=== PATIENT | male | born 1955 | race Hispanic/Latino ===

== ENCOUNTER 2019-01-26 10:08 | Emergency (ER) | payer OTHER ==
--- OUTSIDE RECORDS SUMMARY | 2019-01-26 10:16 | XMS REPORT | Clinical Summary ---
:1955 Author Organization [facility] Address [address] [place] [address] Care Team Providers Name Role Phone Teresa Lieberman MD Primary Care Provider Allergies No Known Allergies Medications Medication Sig Dispensed Refills Start Date End Date Status calcium acetate Take 1,334 mg by 0 Active (PHOSLO) 667 mg mouth 3 (three) capsule times a day with meals. labetalol Take 600 mg by 0 Active (NORMODYNE) 200 mouth 2 (two) MG tablet times a day. lovastatin Take 20 mg by 0 Active (MEVACOR) 20 MG mouth nightly. tablet brimonidine-timol Administer 1 0 Active ol (COMBIGAN) drop to both 0.2-0.5 % eyes 2 (two) ophthalmic times a day. solution aspirin (ECOTRIN) Take 81 mg by 0 Active 81 MG enteric mouth every coated tablet morning. losartan (COZAAR) Take 100 mg by 0 Active 100 MG tablet mouth daily. latanoprost Administer 1 0 Active (XALATAN) 0.005 % drop to both ophthalmic eyes nightly. solution vit B comp Take 1 tablet by 0 Active C/folic acid/vit mouth daily. D3 (DIALYVITE 800 PLUS D ORAL) clopidogrel Take 75 mg by 0 Active (PLAVIX) 75 mg mouth daily. tablet NIFEdipine XL Take 60 mg by 0 Active (PROCARDIA XL) 60 mouth daily. MG 24 hr tablet calcium carbonate Chew 2 tablets 0 Active (TUMS) 200 mg every 2 (two) calcium (500 mg) hours as needed chewable tablet for heartburn. insulin GLARGINE Inject 10 Units 0 Active (LANTUS) 100 under the skin unit/mL injection daily before (vial) breakfast. famotidine Take 40 mg by 0 Active (PEPCID) 40 MG mouth nightly. tablet minoxidil Take 2.5 mg by 0 Active (LONITEN) 2.5 MG mouth daily. tablet nystatin Apply topically 160 g 2 01/15/2019 02/14/2019 Active (MYCOSTATIN) 2 (two) times a 100,000 unit/gram day for 30 days. cream valsartan Take 320 mg by 0 01/10/2019 Discontinued (DIOVAN) 320 MG mouth every tablet evening. acetaminophen-cod Take 1 tablet by 0 01/10/2019 Discontinued eine (TYLENOL #3) mouth every 6 300-30 mg per (six) hours as tablet needed for moderate pain. insulin NPH Inject 15 Units 0 01/10/2019 Discontinued (HumuLIN-N) 100 under the skin unit/mL injection every morning. insulin NPH Inject 10 Units 0 01/10/2019 Discontinued (HumuLIN-N) 100 under the skin unit/mL injection every evening. doxycycline Take 1 tablet 20 tablet 0 01/15/2019 01/25/2019 (VIBRA-TABS) 100 (100 mg total) MG tablet by mouth 2 (two) times a day for 10 days. Active Problems Problem Noted Date Pseudoaneurysm of right femoral artery 01/25/2019 Overview: Added automatically from request for surgery [id number] Cellulitis of right lower extremity 01/10/2019 Osteomyelitis of foot 03/30/2016 Peripheral vascular disease 01/14/2016 Essential hypertension 01/14/2016 Glaucoma 01/14/2016 ESRD (end stage renal disease) 01/14/2016 Gangrene of toe 01/14/2016 Encounters Date Type Specialty Care Team Description 01/25/2019 Office Visit Cardiovascular Zeny Ndiaye MD Pseudoaneurysm of right femoral artery (HCC) (Primary Dx) 01/25/2019 Prep for Surgery Cardiovascular Katherin Mendieta RN right femoral artery (HCC) (Primary Dx) 01/25/2019 Prep for Surgery Cardiovascular Kaitlynn Mendieta RN 01/10/2019 - Hospital Orthopedic Surgery Anand Palmer Cellulitis of right lower extremity (Primary Dx); 01/15/2019 Encounter MD Miguel Pseudoaneurysm of femoral artery ([facility]); Dionicio Cardenas ESRD (end stage renal disease) on dialysis ([facility]); MD Alysia Right leg swelling; Lux, Hypertensive urgency; Alli Rivas Sr., Stage 4 chronic kidney disease ([facility]); Peripheral vascular disease ([facility]); Essential hypertension; ESRD (end stage renal disease) ([facility]) 01/10/2019 Telephone Cardiovascular Kaitlynn Mendieta RN 12/28/2018 Orders Only Cardiovascular Arreguin, Pseudoaneurysm ([facility]) MEGHA Wu (Primary Dx) after 01/25/2018 Family History Medical History Relation Name Comments Diabetes Father Diabetes Mother Relation Name Status Comments Father Mother Social History Tobacco Use Types Packs/Day Years Used Date Former Smoker Smokeless Tobacco: Never Used Alcohol Use Drinks/Week oz/Week Comments No Sex Assigned at Date Recorded Not on file Job Start Date Occupation Industry Not on file Not on file Not on file Travel History Travel Start Travel End No recent travel history available. Last Filed Vital Signs Vital Sign Reading Time Taken Blood Pressure 175/67 01/25/2019 9:06 AM CDT Pulse 57 01/25/2019 9:06 AM CDT Temperature 37.4 C (99.4 F) 01/25/2019 9:06 AM CDT Respiratory Rate 19 01/15/2019 11:55 AM CDT Oxygen Saturation 99% 01/15/2019 11:55 AM CDT Inhaled Oxygen Concentration - - Weight 82.1 kg (181 lb) 01/25/2019 9:06 AM CDT Height 172.7 cm (5' 8") 01/25/2019 9:06 AM CDT Body Mass Index 27.52 01/25/2019 9:06 AM CDT Plan of Treatment Date Type Specialty Care Team Description 03/07/2019 [facility] Cardiothoracic Surgery Zeny Ndiaye MD Encounter [address] [facility] [address] [place] [address] [phone] 03/07/2019 Surgery Cardiothoracic Surgery Zeny Ndiaye MD OPEN REPAIR OF RIGHT [address] [facility] [address] [place] [phone] Health Maintenance Due Date Last Done Comments COLONOSCOPY SCREENING 2007 SHINGLES VACCINES (#1) 2007 INFLUENZA VACCINE 03/08/2019 Procedures Procedure Name Priority Date/Time Associated Diagnosis Comments POC GLUCOSE Routine 01/15/2019 8:31 Results for this AM CDT procedure are in the results section. ESTIMATED GFR Routine 01/15/2019 7:10 Results for this AM CDT procedure are in the results section. BASIC METABOLIC PANEL Routine 01/15/2019 7:10 Results for this AM CDT procedure are in the results section. ESTIMATED GFR Routine 01/15/2019 4:00 Results for this AM CDT procedure are in the results section. BASIC METABOLIC PANEL Routine 01/15/2019 4:00 Results for this AM CDT procedure are in the results section. VANCOMYCIN LEVEL, Routine 01/15/2019 4:00 Results for this RANDOM AM CDT procedure are in the results section. HEMODIALYSIS Routine 01/15/2019 12:05 AM CDT POC GLUCOSE Routine 01/14/2019 10:45 Results for this PM CDT procedure are in the results section. POC GLUCOSE Routine 01/14/2019 5:46 Results for this PM CDT procedure are in the results section. POC GLUCOSE Routine 01/14/2019 1:06 Results for this PM CDT procedure are in the results section. POC GLUCOSE Routine 01/14/2019 7:54 Results for this AM CDT procedure are in the results section. POC GLUCOSE Routine 01/13/2019 9:25 Results for this PM CDT procedure are in the results section. POC GLUCOSE Routine 01/13/2019 5:08 Results for this PM CDT procedure are in the results section. CLOSTRIDIUM DIFFICILE Routine 01/13/2019 1:16 Results for this TOXIN PM CDT procedure are in the results section. POC GLUCOSE Routine 01/13/2019 11:50 Results for this AM CDT procedure are in the results section. POC GLUCOSE Routine 01/13/2019 7:33 Results for this AM CDT procedure are in the results section. ESTIMATED GFR Routine 01/13/2019 5:09 Results for this AM CDT procedure are in the results section. BASIC METABOLIC PANEL Routine 01/13/2019 5:09 Results for this AM CDT procedure are in the results section. HC COMPLETE BLD COUNT Routine 01/13/2019 5:09 Results for this W/AUTO DIFF AM CDT procedure are in the results section. POC GLUCOSE Routine 01/12/2019 9:41 Results for this PM CDT procedure are in the results section. POC GLUCOSE Routine 01/12/2019 5:27 Results for this PM CDT procedure are in the results section. POC GLUCOSE Routine 01/12/2019 11:51 Results for this AM CDT procedure are in the results section. HEMODIALYSIS Routine 01/12/2019 10:26 AM CDT POC GLUCOSE Routine 01/12/2019 8:44 Results for this AM CDT procedure are in the results section. HEPATITIS B SURFACE STAT 01/12/2019 7:07 Results for this ANTIGEN AM CDT procedure are in the results section. HC COMPLETE BLD COUNT Routine 01/12/2019 4:30 Results for this W/AUTO DIFF AM CDT procedure are in the results section. ESTIMATED GFR Routine 01/12/2019 4:00 Results for this AM CDT procedure are in the results section. BASIC METABOLIC PANEL Routine 01/12/2019 4:00 Results for this AM CDT procedure are in the results section. CT ANGIOGRAM ABDOMEN Routine 01/11/2019 8:00 Results for this PELVIS W AND OR WO PM CDT procedure are in CONTRAST the results section. POC GLUCOSE Routine 01/11/2019 5:57 Results for this PM CDT procedure are in the results section. POC GLUCOSE Routine 01/11/2019 12:30 Results for this PM CDT procedure are in the results section. POC GLUCOSE Routine 01/11/2019 7:41 Results for this AM CDT procedure are in the results section. LIPID PANEL Routine 01/11/2019 4:00 Results for this AM CDT procedure are in the results section. LACTIC ACID LEVEL Routine 01/11/2019 4:00 Results for this AM CDT procedure are in the results section. HEMOGLOBIN A1C Routine 01/11/2019 4:00 Results for this AM CDT procedure are in the results section. ESTIMATED GFR Routine 01/11/2019 4:00 Results for this AM CDT procedure are in the results section. BASIC METABOLIC PANEL Routine 01/11/2019 4:00 Results for this AM CDT procedure are in the results section. HC COMPLETE BLD COUNT Routine 01/11/2019 4:00 Results for this W/AUTO DIFF AM CDT procedure are in the results section. BLOOD CULTURE, AEROBIC Routine 01/10/2019 7:55 Results for this & ANAEROBIC PM CDT procedure are in the results section. TYPE AND SCREEN Routine 01/10/2019 7:30 Results for this PM CDT procedure are in the results section. LACTIC ACID LEVEL, Timed 01/10/2019 7:30 Results for this SEPSIS - NOW AND PM CDT procedure are in REPEAT 2X EVERY 3 the results HOURS section. BLOOD CULTURE, AEROBIC Routine 01/10/2019 7:30 Results for this & ANAEROBIC PM CDT procedure are in the results section. US DUPLEX VENOUS LOWER STAT 01/10/2019 6:05 Results for this EXTREMITY RIGHT PM CDT procedure are in the results section. ESTIMATED GFR STAT 01/10/2019 4:34 Results for this PM CDT procedure are in the results section. COMPREHENSIVE STAT 01/10/2019 4:34 Results for this METABOLIC PANEL PM CDT procedure are in the results section. PARTIAL THROMBOPLASTIN STAT 01/10/2019 4:34 Results for this TIME (PTT) PM CDT procedure are in the results section. PROTHROMBIN TIME WITH STAT 01/10/2019 4:34 Results for this INR PM CDT procedure are in the results section. HC COMPLETE BLD COUNT STAT 01/10/2019 4:34 Results for this W/AUTO DIFF PM CDT procedure are in the results section. US DUPLEX ARTERIAL Routine 01/09/2019 9:02 Pseudoaneurysm (HCC) Results for this LOWER EXTREMITY RIGHT AM CDT procedure are in the results section. after 01/25/2018 Results POC glucose (01/15/2019 8:31 AM CDT)Only the most recent of16 resultswithin the time period is included. Pathologist [facility] POC glucose 119 (H) 65 - 99 mg/dL [facility] Comment: HOSPITAL Meter ID: [id number] Asphalt Coater: Cynthia Mas Specimen Performing Organization Address City/State/Zipcode Phone Number [facility] DEPARTMENT OF PATHOLOGY AND [address] [place] [address] GEN[address] [address] Estimated GFR (01/15/2019 7:10 AM CDT)Only the most recent of6 resultswithin the time period is included. Pathologist [facility] Estimated GFR 6 (A) mL/min/1.73 [facility] Comment: HOSPITAL CatergoryUnitsInterpretation G1 >=90 Normal or high G2 60-89Mildly decreased [id number] to moderately decreased [id number] to severely decreased G4 15-29Severely decreased G5 <15Kidney failure The eGFR was calculated using the Chronic Kidney Disease Epidemiology Collaboration (CKD-EPI) equation. Interpretation is based on recommendations of the National Kidney Foundation-Kidney Disease Outcomes Quality Initiative (NKF-KDOQI) published in 2014. Specimen Plasma specimen Performing Organization Address City/[facility] Phone Number [facility] DEPARTMENT OF PATHOLOGY AND [address] [place] [id number] [place] [phone] Basic metabolic panel (01/15/2019 7:10 AM CDT)Only the most recent of5 resultswithin the time period is included. Sodium 135 135 - 148 mEq/L [facility] Potassium 5.0 3.5 - 5.0 mEq/L [facility] Chloride 91 (L) 98 - 112 mEq/L [facility] CO2 20 (L) 24 - 31 mEq/L [facility] Anion gap 24@ANIO (H) 7 - 15 mEq/L [facility] BUN 71 (H) 8 - 23 mg/dL [facility] Creatinine 8.01 (H) 0.70 - 1.20 mg/dL [facility] Glucose 129 (H) 65 - 99 mg/dL [facility] Calcium 9.8 8.8 - 10.2 mg/dL [facility] Specimen Plasma specimen Performing Organization Address [facility] Phone Number [facility] DEPARTMENT OF PATHOLOGY AND [address] [place] [phone] Vancomycin level, random (01/15/2019 4:00 AM CDT) Vancomycin, random 19.5 ug/mL [facility] Specimen Serum Performing Organization Address [facility] Phone Number [facility] DEPARTMENT OF PATHOLOGY AND [address] [place] [phone] [address] C difficile toxin (01/13/2019 1:16 PM CDT) Clostridium No Clostridium difficle toxin present [facility] difficile toxin Comment: HOSPITAL Specimen Information Specimen Source: Stool Specimen Site: Nonpreserved Specimen Stool - Nonpreserved Performing Organization Address [facility]/Zipcode Phone Number [facility] DEPARTMENT OF PATHOLOGY AND [address] [place] [address] [place] [address] CBC with platelet and differential (01/13/2019 5:09 AM CDT)Only the most recent of4 resultswithin the time period is included. Pathologist [facility] WBC 8.28 4.50 - 11.00 [facility] k/uL HOSPITAL RBC 2.92 (L) 4.40 - 6.00 [facility] m/uL HOSPITAL HGB 10.2 (L) 14.0 - 18.0 [facility] g/dL HOSPITAL HCT 31.8 (L) 41.0 - 51.0 % [facility] MCV 108.9 (H) 82.0 - 100.0 [facility] MCH 34.9 (H) 27.0 - 34.0 pg [facility] MCHC 32.1 31.0 - 37.0 [facility] g/dL [facility] RDW - SD 62.2 (H) 37.0 - 55.0 fL [facility] MPV 10.7 8.8 - 13.2 fL [facility] Platelet count 125 (L) 150 - 400 k/uL [facility] Nucleated RBC 0.00 /100 WBC [facility] Neutrophils 68.2 39.0 - 69.0 % [facility] Lymphocytes 14.5 (L) 25.0 - 45.0 % [facility] Monocytes 14.4 (H) 0.0 - 10.0 % [facility] Eosinophils 2.3 0.0 - 5.0 % [facility] Basophils 0.5 0.0 - 1.0 % [facility] Immature granulocytes 0.1Comment: 0.0 - 1.0 % [facility] "Immature [facility] granulocytes" (promyelocytes , myelocytes, metamyelocytes ) Specimen Blood Performing Organization Address City/State/Zipcode Phone Number [facility] DEPARTMENT OF PATHOLOGY AND [address] [place] [phone] [address] Hepatitis B surface antigen (01/12/2019 7:07 AM CDT) Pathologist [facility] Hepatitis B surface Non-reactive Non-reactive [facility] Specimen Blood Performing Organization Address City/State/Zipcode Phone Number [facility] DEPARTMENT OF PATHOLOGY AND [address] [place], [place] [phone] [place] [address] [place] [address] CTA Abdomen Pelvis W And Or Wo Contrast (01/11/2019 8:00 PM CDT) Specimen Narrative Performed At EXAMINATION:CT ANGIOGRAM ABDOMEN PELVIS W AND OR WO CONTRAST RADIANT CLINICAL HISTORY:visualize right femoral PSA TECHNIQUE: Multiple CT angiographic images of the abdomen and pelvis were obtained during intravenous administration of contrast. Multiple computerized reformatted images as well as 3-D volume rendered images were also obtained.CT imaging was performed with iterative reconstruction technique and/or automated exposure control to reduce radiation dose. Precontrast images of the abdomen were also obtained. COMPARISON:None. FINDINGS: Abdomen: There is a moderate to marked cardiomegaly. Lung bases are unremarkable. Tiny hyperdense focus is seen in the posterior right hepatic lobe measuring 3 mm. This could be hemorrhagic cyst or other. Contrast-enhanced exam could better assess. Gallbladder, pancreas, spleen, and adrenals are normal in appearance. The kidneys are small in size. Vascular calcifications are seen. There is mild ascites. Appendix is not definitely seen. Tiny left para-aortic lymph nodes are seen. Pelvis: Small amount of pelvic free fluid is seen. No enlarged pelvic lymph node or mass is seen. Bilateral inguinal hernias containing fat only are seen. CTA: Abdominal aorta is of normal caliber but markedly atherosclerotic. Marked atherosclerosis is seen at the origin of the celiac artery with moderate dilatation. Moderate atherosclerosis is seen at the origin of the SMA with mild dilatation. Mild left renal artery origin atherosclerosis is seen. Right and left renal arteries are patent. Marked ARIELLE laparoscopic calcification is seen but this vessel appears patent. Atherosclerosis is present throughout the common, internal, and external iliac arteries without occlusion. There is a right superficial femoral artery pseudoaneurysm which measures 3.9 x 3.5 cm. Enhancing lumen within this pseudoaneurysm is 2.5 x 2.0 cm. The left is mural thrombus with some scattered calcification and/or hemorrhage. IMPRESSION: Right femoral artery pseudoaneurysm as described. Cardiomegaly. Nonspecific hyperdense right hepatic lobe lesion.Tiny left para-aortic lymph nodes. Extensive atherosclerosis. [facility]-[id number] Procedure Note Interface, Radiology Results Incoming - 01/11/2019 11:45 PM CDT EXAMINATION: CT ANGIOGRAM ABDOMEN PELVIS W AND OR WO CONTRAST CLINICAL HISTORY: visualize right femoral PSA TECHNIQUE: Multiple CT angiographic images of the abdomen and pelvis were obtained during intravenous administration of contrast. Multiple computerized reformatted images as well as 3-D volume rendered images were also obtained.CT imaging was performed with iterative reconstruction technique and/or automated exposure control to reduce radiation dose. Precontrast images of the abdomen were also obtained. COMPARISON: None. FINDINGS: Abdomen: There is a moderate to marked cardiomegaly. Lung bases are unremarkable. Tiny hyperdense focus is seen in the posterior right hepatic lobe measuring 3 mm. This could be hemorrhagic cyst or other. Contrast-enhanced exam could better assess. Gallbladder, pancreas, spleen, and adrenals are normal in appearance. The kidneys are small in size. Vascular calcifications are seen. There is mild ascites. Appendix is not definitely seen. Tiny left para-aortic lymph nodes are seen. Pelvis: Small amount of pelvic free fluid is seen. No enlarged pelvic lymph node or mass is seen. Bilateral inguinal hernias containing fat only are seen. CTA: Abdominal aorta is of normal caliber but markedly atherosclerotic. Marked atherosclerosis is seen at the origin of the celiac artery with moderate dilatation. Moderate atherosclerosis is seen at the origin of the SMA with mild dilatation. Mild left renal artery origin atherosclerosis is seen. Right and left renal arteries are patent. Marked ARIELLE laparoscopic calcification is seen but this vessel appears patent. Atherosclerosis is present throughout the common, internal, and external iliac arteries without occlusion. There is a right superficial femoral artery pseudoaneurysm which measures 3.9 x 3.5 cm. Enhancing lumen within this pseudoaneurysm is 2.5 x 2.0 cm. The left is mural thrombus with some scattered calcification and/or hemorrhage. IMPRESSION: Right femoral artery pseudoaneurysm as described. Cardiomegaly. Nonspecific hyperdense right hepatic lobe lesion.Tiny left para- aortic lymph nodes. Extensive atherosclerosis. [facility]-[id number] Performing Organization Address City/[facility]/Zipcode Phone Number [facility] [address] [place] [address] Lactic acid level (01/11/2019 4:00 AM CDT) Lactic acid 1.0 0.5 - 2.2 mmol/L [facility] Specimen Plasma specimen Performing Organization Address City/[facility]/Zipcode Phone Number [facility] DEPARTMENT OF PATHOLOGY AND [address] [place] [address] [address] [address] Hemoglobin A1c (01/11/2019 4:00 AM CDT) Hemoglobin A1C 5.4 4.0 - 5.6 % [facility] Comment: HOSPITAL HbA1c cutoffs for diagnosing diabetes: 4.0% - 5.6%=normal 5.7% - 6.4%=increased risk for diabetes (prediabetes) >=6.5%=diabetes Goals for glycemic control (ADA 2016) < 7.0%Target for non adults with diabetes. More or less stringent targets may be appropriate for individual patients. <7.5% Target for Children and adolescents with type 1 diabetes. Specimen Performing Organization Address City/State/Zipcode Phone Number [facility] DEPARTMENT OF PATHOLOGY AND [address] [place] [address] GENOMIC MEDICINE [facility] [address] [place] [address] Lipid panel (01/11/2019 4:00 AM CDT) Cholesterol 111 <200 mg/dL [facility] Triglycerides 85 <150 mg/dL [facility] HDL cholesterol 47 >40 mg/dL [facility] LDL cholesterol 48Comment: Result <100 mg/dL TRIPOLI obtained by direct [facility] LDL measurement [facility] Comment: [facility] Total Cholesterol (mg/dL) [facility] <200 Desirable 251-533Zyxoppcrcm-[id number] >=240High Triglycerides (mg/dL) <150 Normal [id number] 200-499High >=500Very high HDL Cholesterol (mg/dL) <40Low (male) <40Low (female) LDL Cholesterol (mg/dL) <100 Optimal 100-129Near or above optimal [id number]-[id number] 160-189High >=190Very high Risk Catergories that modify LDL goals. Risk CatergoriesLDL goal (mg/dL) CHD and CHD risk equivalent<100 (10-year risk >20%) Multiple (2+) risk factors <130 (10-year risk=<20%) 0-1 risk factors <160 (<10-year risk) Defining levels of lipids in metabolic syndrome Triglycerides>=150 mg/dL HDL Cholesterol Men<40 mg/dL Women<40 mg/dL Non-HDL cholesterol is a second target for therapy in persons with high triglycerides (>=200 mg/dL) Specimen Plasma specimen Performing Organization Address [facility] [place] Phone Number [facility] DEPARTMENT OF PATHOLOGY AND [address] [place] [address] Blood culture, aerobic & anaerobic (01/10/2019 7:55 PM CDT)Only the most recent of2 resultswithin the time period is included. Blood culture No growth after 5 days of incubation. [facility] isolate Comment: HOSPITAL Specimen Information Specimen Source: Blood Specimen Site: Unspecified Specimen Blood Performing Organization Address [facility] [place] Phone Number [facility] DEPARTMENT OF PATHOLOGY AND [address] [place] [address] Lactic acid level, SEPSIS - Now and repeat 2x every 3 hours (01/10/2019 7:30 PM CDT) Lactic acid 1.0 0.5 - 2.2 mmol/L [facility] Specimen Blood Performing Organization Address [facility] [place] Phone Number [facility] DEPARTMENT OF PATHOLOGY AND [address] [place] [address] Type and screen (01/10/2019 7:30 PM CDT) ABO grouping O [facility] Rh type POS [facility] Antibody screen (gel) NEG [facility] Specimen Blood Performing Organization Address [facility] [place] [facility] DEPARTMENT OF PATHOLOGY AND [address] [place] [address] Us duplex venous lower extremity (01/10/2019 6:05 PM CDT) Specimen Narrative Performed At [facility] Lower Extremity Venous Report [address] [place] [address] Pat.Name:CHRIS ANDINO.ID:[id number] .Date: 01/10/2019Refer.MD:PHYSICIAN, EMERGENCY, Exam Time: 5:22:00 PMStudy Type:LE Venous Height:68inWeight: 187lb BSA: 1.99 m2 DOBAge:1955,63Y Sex: MALESonogrphr: Pat Roy, RVT Pat. Stat.:Inpatient Room:EDT TapeVol: MAGDY, CPT - 4: 11177 Echo Event ID:[id number] Order ID:[id number] Reason for Study:Right leg swelling and pain. History of DM, HTN, end-stage renal disease, peripheral vascular disease. Procedures:Colorflow, Grayscale/2D, Pulsed wave Doppler Race:Other SUMMARY: * Normal Reflux Criteria:< 0.5 seconds * Abnormal Reflux Criteria:> or equal to 0.5 seconds DUPLEX SCAN OBSERVATIONS Deep VeinsSuperficial Veins RightLeft RightLeft GSV (prox) Normal CFV Pulsatile Pulsatile (above knee) Femoral PulsatileGSV (dist) Normal Profunda Pulsatile(below knee) Popliteal Pulsatile PT (prox) Normal SSV Normal PT (dist) Normal Peroneal Normal Gastrocs Normal RIGHT: There is normal compressibility with no evidence of echogenic material noted within the lumen of the visualized veins. Color flow and Doppler signals are pulsatile in the thigh veins. Incident finding: There is partially thrombosed pseudoaneurysm coming from proximal superficial femoral artery; measures approximately 5.33 x 2.5 cm in long with an active lumen that measures approximately 2.5 cm x 1.4 cm. LEFT: There is normal compressibility with no evidence of echogenic material noted within the lumen of the common femoral vein. Colorflow and Doppler signals are pulsatile in the common femoral vein. PRELIMINARY FINDINGS 1. No evidence of venous thrombosis in the visualized veins. 2. Color flow and Doppler signals are pulsatile in the right thigh veins and left common femoral vein. 3. 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 4. Preliminary result reported to Dr. Palmer @ 18:20. PHYSICIAN INTERPRETATION Venous examination of the right lower extremity and leftgroin demonstrated no evidence of venous thrombosis in the visualized veins. Volume overload. 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 Signed 01/11/2019 08:14 AM René Lindsey MD, RPVI Procedure Note Interface, Radiology Results In - 01/11/2019 8:15 AM CDT [facility] Lower Extremity Venous Report [address] [place] [address] Pat.Name: CHRIS ANDINO Pat.ID: [id number] St.Date: 01/10/2019 Refer.MD: PHYSICIAN, EMERGENCY, MD Exam Time: 5:22:00 PM Study Type:LE Venous Height: 68in Weight: 187lb BSA: 1.99 m2 Age: 9 1955,63Y Sex: MALE Sonogrphr: Pat Roy RVT Pat. Stat.:Inpatient Room: EDT Tape Vol: LN, CPT - 4: 58906 Echo Event ID:[id number] Order ID: [id number] Reason for Study:Right leg swelling and pain. History of DM, HTN, end-stage renal disease, peripheral vascular disease. Procedures:Colorflow, Grayscale/2D, Pulsed wave Doppler Race: Other SUMMARY: * Normal Reflux Criteria: < 0.5 seconds * Abnormal Reflux Criteria: > or equal to 0.5 seconds DUPLEX SCAN OBSERVATIONS Deep Veins Superficial Veins Right Left Right Left GSV (prox) Normal CFV Pulsatile Pulsatile (above knee) Femoral Pulsatile GSV (dist) Normal Profunda Pulsatile (below knee) Popliteal Pulsatile PT (prox) Normal SSV Normal PT (dist) Normal Peroneal Normal Gastrocs Normal RIGHT: There is normal compressibility with no evidence of echogenic material noted within the lumen of the visualized veins. Color flow and Doppler signals are pulsatile in the thigh veins. Incident finding: There is partially thrombosed pseudoaneurysm coming from proximal superficial femoral artery; measures approximately 5.33 x 2.5 cm in long with an active lumen that measures approximately 2.5 cm x 1.4 cm. LEFT: There is normal compressibility with no evidence of echogenic material noted within the lumen of the common femoral vein. Colorflow and Doppler signals are pulsatile in the common femoral vein. PRELIMINARY FINDINGS 1. No evidence of venous thrombosis in the visualized veins. 2. Color flow and Doppler signals are pulsatile in the right thigh veins and left common femoral vein. 3. 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 4. Preliminary result reported to Dr. Palmer @ 18:20. PHYSICIAN INTERPRETATION Venous examination of the right lower extremity and left groin demonstrated no evidence of venous thrombosis in the visualized veins. Volume overload. 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 Signed 01/11/2019 08:14 AM René Lindsey MD, RPVI Performing Organization Address [facility]/Zipcode Phone Number [facility] [address] [place] [address] Partial thromboplastin time, activated (01/10/2019 4:34 PM CDT) Pathologist [facility] PTT 34.1 23.0 - 36.0 [facility] Comment: [facility] PTT therapeutic range for unfractionated heparin is 61.0-112.0 seconds which corresponds to Anti-Xa 0.3-0.7 U/ml. Specimen Blood Performing Organization Address [facility]/Zipcode Phone Number [facility] DEPARTMENT OF PATHOLOGY AND [address] [place] [address] GENOMIC MEDICINE [address] [address] Prothrombin time with INR (01/10/2019 4:34 PM CDT) Pathologist [facility] Prothrombin time 14.2 11.5 - 14.5 [facility] INR 1.1 [facility] Comment: [facility] The International Normalized Ratio (INR) is a therapeutic HOSPITAL monitoring tool for patients who are stable on oral anticoagulant therapy. An INR of 2.0-3.0 is suggested for deep vein thrombosis/pulmonary embolism. Specimen Blood Performing Organization Address City/State/Zipcode Phone Number [facility] DEPARTMENT OF PATHOLOGY AND [address] [place] [address] [address] Comprehensive metabolic panel (01/10/2019 4:34 PM CDT) Sodium 133 (L) 135 - 148 [facility] mEq/L [facility] Potassium 3.9 3.5 - 5.0 [facility] mEq/L [facility] Chloride 93 (L) 98 - 112 mEq/L [facility] CO2 26 24 - 31 mEq/L [facility] Anion gap 14@ANIO 7 - 15 mEq/L [facility] BUN 29 (H) 8 - 23 mg/dL [facility] Creatinine 4.12 (H) 0.70 - 1.20 [facility] mg/dL [facility] Glucose 167 (H) 65 - 99 mg/dL [facility] Calcium 9.4 8.8 - 10.2 [facility] mg/dL [facility] Protein 8.4 (H) 6.3 - 8.3 g/dL [facility] Comment: [facility] [place] 4.6-7.0 g/dL 1 week 4.4-7.6 g/dL 7 months-1year5.1-7.3 g/dL 1-2 years5.6-7.5 g/dL >3 years6.0-8.0 g/dL 18-150 6.3-8.3 g/dL Albumin 3.4 (L) 3.5 - 5.0 g/dL [facility] A/G ratio 0.7 0.7 - 3.8 [facility] Alkaline phosphatase 624 (H) 40 - 129 U/L [facility] AST 42 10 - 50 U/L [facility] ALT 37 5 - 50 U/L [facility] Total bilirubin 1.1 0.0 - 1.2 [facility] mg/dL [facility] Specimen Plasma specimen Performing Organization Address City/State/Zipcode Phone Number [facility] DEPARTMENT OF PATHOLOGY AND [address] [place] [address] [address] [place] duplex arterial lower extremity (01/09/2019 9:02 AM CDT) Specimen Narrative Performed At [facility] Lower Extremity Arterial Duplex Report [address] [facility] [address], [place], [place] Pat.Name:CHRIS ANDINO.ID:[id number] .Date: 01/09/2019Refer.MD:ZENY NDIAYE MD Exam Time: 8:15:00 AMStudy Type:LE Arterial DOBAge:1955,63YSex: MALE Sonogrphr: Molly Morrell RN, RVT CPT - 4: 55105 Echo Event ID:[id number] Order ID:[id number] Reason for Study:Hard "knot" to right groin noted by pt's account specialist. Patient denies pain or being aware of "knot". Aortogram 01/19/16 with right femoral approach per pt. Diabetic, ESRD, hypertenion, Lt arm AVF for hemodialysis., PAD. Race:Other SUMMARY: DUPLEX SCAN OBSERVATIONS: RIGHT:There is smooth intimal lining in the distal external iliac artery, common femoral, proximal and mid superficial femoral and proximal profunda femoris artery where colorflow is present.The distal external iliac, common femoral, proximal and mid femoral, and proximal profunda femoris vein are compressible, echo-free with spontaneous, phasic color flow.A 3.4 x 4.1 cm mixed hypoechoic and hyperechoic area is seen off the common femoral vein in the groin; the patent portion measures 2.0 x 2.6 cm. The neck measures 0.21 cm in length and 0.19 cm in diameter with two-fro elevated Doppler signals. Velocities in the common femoral vein are elevated deep to the pseudoaneurysm (80 cm/sec); flow proximal in CFV is 20 cm/sec). Calcium lines the arteries imaged. A mixed echoic structure is seen superficial to the pseudoaneurysm measuring 1.4 x 2.7 cm with minimal colorflow. Venous flow is pulsatile in the veins assessed. DOPPLER FINDINGS: ARTERYLOCATIONPSV (cm/sec) RIGHTExternal Iliac Distal- Common Femoral Proximal-third 181 Mid-lcdum314 Profunda Femoris Proximal-third Superficial Femoral Proximal-third 93 Proximal-third 211 Proximal-third 218 Mid-khtaj843 Pseudoaneurysmneck Ysoyetnh450 Uzetqg034 intra-pseudoaneurysm 288 VEINSLOCATION Common Femoral Proximal-third Patent Profunda Femoris Proximal-third Patent Superficial Femoral Proximal-third Patent PRELIMINARY FINDINGS: 1.A partially vascularized structure containing partial bright echoes measuring 3.4 x 4.1 cm is seen in the right groin off the common femoral artery. The patent portion containing colorflow measures 2.0 x 2.6 cm. The neck measures 0.21 cm in length and 0.19 cm in diameter with two-fro flow andelevated Doppler velocities. 2.Patent right distal external iliac, common femoral, profunda femoris and proximal and mid superficial femoral artery. 3.Patent right distal external iliac, common femoral, profunda femoris and proximal and mid superficial femoral vein.Venous flow is pulsatile in the veins assessed in the right leg.. 4. Velocities in the right common femoral vein are elevated deep to the pseudoaneurysm (80 cm/sec); flow proximal in CFV is 20 cm/sec. This may suggest partial compression of the vein by the pseudoaneurysm. 5.Calcium lines the arteries imaged. 6.A mixed echoic structure is seen superficial to the pseudoaneurysm measuring 1.4 x 2.7 cm with minimal colorflow, this may be c/w a lymph node. PHYSICIAN INTERPRETATION: Right femoral pseudoaneurysm, 4cm with flow disturbance in underlying vein Signed 01/12/2019 06:31 AM Tato Neville MD, RPVI Procedure Note Interface, Radiology Results In - 01/12/2019 6:32 AM CDT [facility] Lower Extremity Arterial Duplex Report [address] [facility] [address], [place] [address] Pat.Name: CHRIS ANDINO Pat.ID: [id number] St.Date: 01/09/2019 Refer.MD: ZENY NDIAYE MD Exam Time: 8:15:00 AM Study Type:SENTHIL Arterial Age: 9 1955,63Y Sex: MALE Sonogrphr: Molly Morrell RN, RVT CPT - 4: 40661 Echo Event ID:[id number] Order ID: [id number] Reason for Study:Hard "knot" to right groin noted by pt's account specialist. Patient denies pain or being aware of "knot". Aortogram 01/19/16 with right femoral approach per pt. Diabetic, ESRD, hypertenion, Lt arm AVF for hemodialysis., PAD. Race: Other SUMMARY: DUPLEX SCAN OBSERVATIONS: RIGHT: There is smooth intimal lining in the distal external iliac artery, common femoral, proximal and mid superficial femoral and proximal profunda femoris artery where colorflow is present. The distal external iliac, common femoral, proximal and mid femoral, and proximal profunda femoris vein are compressible, echo-free with spontaneous, phasic color flow. A 3.4 x 4.1 cm mixed hypoechoic and hyperechoic area is seen off the common femoral vein in the groin; the patent portion measures 2.0 x 2.6 cm. The neck measures 0.21 cm in length and 0.19 cm in diameter with two-fro elevated Doppler signals. Velocities in the common femoral vein are elevated deep to the pseudoaneurysm (80 cm/sec); flow proximal in CFV is 20 cm/sec). Calcium lines the arteries imaged. A mixed echoic structure is seen superficial to the pseudoaneurysm measuring 1.4 x 2.7 cm with minimal colorflow. Venous flow is pulsatile in the veins assessed. DOPPLER FINDINGS: ARTERY LOCATION PSV (cm/sec) RIGHT External Iliac Distal-third 215 Common Femoral Proximal-third 181 Mid-third 169 Profunda Femoris Proximal-third Superficial Femoral Proximal-third 93 Proximal-third 211 Proximal-third 218 Mid-third 153 Pseudoaneurysm neck Proximal 194 Distal 216 intra-pseudoaneurysm 288 VEINS LOCATION Common Femoral Proximal-third Patent Profunda Femoris Proximal-third Patent Superficial Femoral Proximal-third Patent PRELIMINARY FINDINGS: 1. A partially vascularized structure containing partial bright echoes measuring 3.4 x 4.1 cm is seen in the right groin off the common femoral artery. The patent portion containing colorflow measures 2.0 x 2.6 cm. The neck measures 0.21 cm in length and 0.19 cm in diameter with two-fro flow and elevated Doppler velocities. 2. Patent right distal external iliac, common femoral, profunda femoris and proximal and mid superficial femoral artery. 3. Patent right distal external iliac, common femoral, profunda femoris and proximal and mid superficial femoral vein. Venous flow is pulsatile in the veins assessed in the right leg.. 4. Velocities in the right common femoral vein are elevated deep to the pseudoaneurysm (80 cm/sec); flow proximal in CFV is 20 cm/sec. This may suggest partial compression of the vein by the pseudoaneurysm. 5. Calcium lines the arteries imaged. 6. A mixed echoic structure is seen superficial to the pseudoaneurysm measuring 1.4 x 2.7 cm with minimal colorflow, this may be c/w a lymph node. PHYSICIAN INTERPRETATION: Right femoral pseudoaneurysm, 4cm with flow disturbance in underlying vein Signed 01/12/2019 06:31 AM Tato Neville MD, RPVI Performing Organization Address City/State/Zipcode Phone Number [facility] [address] [place] [address] after 01/25/2018 Advance Directives Patient has advance care planning documents, and code status on file. For more information, please contact:Venkatesh Echevarria[address] [place] [address] Code Status Date Activated Date Inactivated Comments Full Code 03/30/2016 7:02 PM 04/08/2016 3:56 PM Code Status decision reached by: Patient Full Code 01/14/2016 10:31 PM 01/20/2016 11:47 PM Code Status decision reached by: Patient
--- OUTSIDE RECORDS SUMMARY | 2019-01-26 10:17 | XMS REPORT | Continuity of Care Document ---
:1955 Author Organization Interface Problems Problem Status Onset Classification Date Comments Source Date Reported LABH Active 12/13/[address] LAB Active 03/14/[address] ABN STRESS TEST, Active 12/01/19 [facility] CLAUDICATION [address] [place] [address] Center CCL/LHC W/ Active 12/01/19 [facility] POSS/BILATERAL [address] [place] [address] EXTREMIT Center ESRD Active 10/20/[address] BDDC/ Active 09/21/[address] COLONOSCOPY Active 08/31/19 [facility] SCREENING [address] [place] [address] Center UPDATE VISIT Active 06/22/[address] CLAUDICATION Active 08/15/[address] Center FOLLOW UP Active 08/14/[address] RENAL PRE OPEN Active 07/29/20 [facility] ACCT [facility] Center CARDIAC CLEARNCE/ Active 06/26/20 [facility] PRE KIDNEY 15 Medical TRANSPLANT Center PA KIDNEY ACCT Active 04/29/20 [facility] FOR FC NOTES 15 [facility] [place] T-SPOT Active 07/16/[address] ESRDINCLUDE Active 06/26/20 [facility] ILIACS 14 Medical Center ESRD/ PRE Active 11/20/19 [facility] TRANSPLANT WORK 14 Medical UP/ INCLUDE E Center Discharge 11/14/19 11/15/2013 [facility] Diagnosis: 14 Medical Hypertension Center HIGH BLOOD Active 11/14/19 [facility] PRESSURE 14 Medical Center UPDATE Active 10/02/[address] Center BDDC-RECTAL Active 12/22/19 [facility] CANCER SCREENING 13 [facility] Center COLONSCOPY Active 12/01/19 [facility] CLEARANCE 13 Medical Center KIDNEY [place]/CARDIAC Active 12/01/19 [facility] CLEARENCE PER 13 Medical JESS GR Center RENAL/DONOT USE Active 11/15/19 [facility] THIS ACCT FOR 13 Medical CHARGES F/ Center PRE TRANSPLANT Active 10/19/19 [facility] EVAL [address] [place] [address] Center Pulmonary Active 04/30/20 Problem 12/06/2016 [facility] hypertension Medical Center, OPID Itz Diabetes Resolved Problem 01/31/2013 [facility] Hypertension Resolved Problem 01/31/2013 [facility] renal failure Resolved Problem 08/16/2014 [facility] DM II [Diabetes Active Problem 08/30/2015 [facility] mellitus type II] Medical Center Essential Active Problem 08/16/2014 [facility] Center Kidney transplant Active Problem 12/06/2016 [facility] evaluation [facility], MELISSAAbby Mobley Coronary artery Active Problem 12/06/2016 [facility] Medical [place], OPIAbby Mobley End-stage renal Active Problem 12/06/2016 [facility] disease (<span Medical ID="[id number]" Center, >Confirmed</span> OPID ) Itz Essential Active Problem 08/30/2015 [facility] Center History and Active Problem 12/06/2016 [facility] physical Medical examination, Center, annual for health OPID maintenance Itz Obesity Active Problem 12/06/2016 [facility], LISA Mobley Polyp of colon, Active Problem 12/06/2016 [facility], OPIAbby Mobley DM II [Diabetes Active Problem 12/06/2016 [facility] mellitus type II] Itz,[facility] Essential Active Problem 12/06/2016 OP[facility] pulmonary Itz,[facility] SCREEN MAL Active [facility] NEOP-RECTUM [facility] PRE-PROCEDURE LAB Active [facility] RENAL FAILURE NOS Active [facility] MEDICAL SERVICES Active [facility] NOT AVAILABLE IN Medical HOME Center PERIPHERAL Active [facility] VASCULAR DISEASE, Medical UNSPECIFIED Center ENCNTR FOR Active [facility] GENERAL ADULT Medical MEDICAL EXAM W/ Center ENCOUNTER FOR Active [facility] PREPROCEDURAL Medical LABORATORY E Center Medications Medication Details Route Status Patient Ordering Order Source Instructions Provider Date Aspirin Enteric 81 mg=1 Active [facility] Coated 81 mg oral tab, PO, 017 Medical delayed release Daily, 0 Center tablet Refill(s) Famotidine 40 mg, PO, Active [facility] BID, # 60 017 Medical tab, 0 Center Refill(s) famotidine 20 0 Refill(s) Inactive [facility] mg/5 mL-NaCl 0.9% 017 [facility] intravenous Center solution GoLYTELY oral See Active [facility] powder for Instruction 017 Medical reconstitution s, Take as Center directed by physician., # 1 ea, 0 Refill(s), Pharmacy: [facility] [id number] valsartan 320 mg 320 mg=1 Active [facility] oral tablet tab, PO, 017 Medical Daily, # 30 Center tab, 0 Refill(s) non-formulary 1 dose, Active [facility] Daily, 017 Medical ecotrin, Center Refill(s) 0 24 HR Nifedipine 60 mg=1 Active [place] 60 MG Extended tab, PO, 017 Medical Release Tablet Daily, # 30 Center tab, 0 Refill(s) NPH Insulin, See Special Active [facility] Human 100 UNT/ML Instruction 017 Medical Injectable s, SUB-Q, Center Suspension BID, Inject [Novolin N] 12 units at 9am and inject 8 units at 9pm, vial, 0 Refill(s) minoxidil 2.5 mg 5 mg=2 tab, Active [facility] oral tablet PO, BID, 0 017 Medical Refill(s) Center Famotidine 20 MG 20 mg=1 Active [facility] Oral Tablet tab, PO, 017 Medical BID, 0 Center Refill(s) labetalol 200 mg 3 tabs, PO, Active [facility] oral tablet BID, 0 017 Medical Refill(s) Center 24 HR Nifedipine 60 mg=1 Active [facility] 60 MG Extended tab, PO, 017 Medical Release Tablet BID, 0 Center Refill(s) clopidogrel 75 MG 75 mg=1 Active [facility] Oral Tablet tab, PO, 017 Medical [Plavix] Daily, 0 Center Refill(s) tramadol See Active [facility] hydrochloride 50 Instruction 016 Medical MG Oral Tablet s, 1 tab in Center am and 1 tab in pm, 0 Refill(s) NPH Insulin, See Active [facility] Human 100 UNT/ML Instruction 016 Medical Injectable s, takes 15 Center Suspension units in AM [Humulin N] and 10units in PM, 0 Refill(s) amLODIPine 10 mg 10 mg=1 Active [facility] oral tablet tab, PO, 016 Medical Daily, 0 Center Refill(s) lovastatin 20 mg 20 mg=1 Active [facility] oral tablet tab, PO, 016 Medical Daily, 0 Center Refill(s) Hydralazine 100 mg=1 Active [place] Hydrochloride 100 tab, PO, 016 Medical MG Oral Tablet TID, 0 Center Refill(s) valsartan 320 MG 320 mg=1 Active [place] Oral Tablet tab, PO, 016 Medical [Diovan] Daily, 0 Center Refill(s) labetalol 200 mg See Active [place] oral tablet Instruction 015 Medical s, 3 tab PO Center bid, 0 Refill(s) gabapentin 300 MG 300 mg=1 Active [place] Oral Capsule cap, PO, 015 Medical Daily, # 90 Center cap, 0 Refill(s) valsartan 320 mg 320 mg=1 Active [place] oral tablet tab, PO, 015 Medical Daily, # 30 Center tab, 0 Refill(s) calcium acetate 1,334 mg=2 Active [place] 667 MG Oral cap, PO, 015 Medical Capsule [Phoslo] TID, with Center meals and 2 tabs po with snacks, 0 Refill(s) omeprazole 20 mg 20 mg=1 Active [facility] oral delayed cap, PO, 014 Medical release capsule Daily, # 30 Center cap, 1 Refill(s) labetalol 200 mg 200 mg=1 Active [place] oral tablet tab, PO, 014 Medical BID, # 60 Center tab, 1 Refill(s) Labetalol 200 mg, 1 Inactive [place] tab, Route: 014 Medical PO, Drug Center form: TAB, ONCE, Dosing Weight 86.818, kg, Start date: 11/13/13 16:23:00, Stop date: 11/13/13 16:23:00Not es: With food. (Same as:Trandate , Normodyne) Hydralazine 1 tab, Inactive [place] Hydrochloride 100 Route: PO, 014 Medical MG Oral Tablet ONCE, Center Dosing Weight 86.818, kg, Start date: 11/13/13 16:23:00, Stop date: 11/13/13 16:23:00 Clonidine 1 tab, Inactive [place] Hydrochloride 0.3 Route: PO, 014 Medical MG Oral Tablet ONCE, Center Dosing Weight 86.818, kg, Start date: 11/13/13 16:22:00, Stop date: 11/13/13 16:22:00 Allergies, Adverse Reactions, Alerts Substance Category Reaction Severity Reaction Status Date Comments Source type Reported Immunizations Immunization Date Given Site Status Last Updated Comments Source Results Order Name Results Value Reference Date Interpretation Comments Source Range Chest wo Chest wo EXAM: CT CHEST WITHOUT CONTRAST 11/04 - [facility] contrast CT contrast CT /2017 - Medical Center DATE: 11/04/2016 Read by: Yusra Sen MD Dictated Date/time: 11/04/16 08:16 Electronically Signed by: Yusra Sen MD 11/04/16 08:30 FINAL REPORT INDICATION: ESRD; PRE-TRANSPLANT WORK-UP TECHNIQUE: Volumetric CT acquisition of the chest without contrast. Axial, sagittal and coronal reconstructions. Axial MIP images were reformatted at the scanner workstation. IV contrast: None. DLP: 812 mGy-cm COMPARISON: Chest CT dated 07/29/2015 DISCUSSION: Lines and Tubes: None. Heart and Great Vessels: There is atherosclerotic calcification of the thoracic aorta right and left coronary arteries including the left anterior descending and left circumflex coronary arteries. Cardi othoracic ratio measures 12.5/29 cm. There is no pleural or pericardial effusion. Lymph Nodes: No hilar, mediastinal, axillary or internal mammary lymphadenopathy. Lungs: 4 mm left upper lobe nodule on axial image 37, 3 mm right middle lobe nodule on axial image 108, 3 mm right lower lobe nodule on axial image 120 and 2 mm right lower lobe nodule on axial image 1 35. These nodules are all stable since 07/29/2015. No new pulmonary nodules or masses. Trachea and central bronchi are unremarkable. Upper abdomen: For comments below the diaphragm, I refer you to the abdomen and pelvic CT report from 09/21/2016. Bones and Soft Tissues: Degenerative changes of the thoracic spine are noted with osteophytes. IMPRESSION: 1. 4 mm left upper lobe nodule on axial image 37, 3 mm right middle lobe nodule on axial image 108, 3 mm right lower lobe nodule on axial image 120 and 2 mm right lower lobe nodule on axial image 135. These nodules are all stable since 07/29/2015. No new pulmonary nodules or masses. 2. Atherosclerotic calcification of the thoracic aorta right and left coronary arteries including the left anterior descending and left circumflex coronary arteries. HEMATOLOGY POC 39.0 % 42.0 - 10/05 [facility] Hematocrit 54.0 [facility] HEMATOLOGY POC Potassium 3.6 meq/L 3.5 - 5.1 10/05 [facility]2016 [facility] HEMATOLOGY POC Sodium 133 meq/L 135 - 145 10/[address] HEMATOLOGY POC 13.3 g/dL 14.0 - 10/05 [facility] Hemoglobin 18.0 [facility] HEMATOLOGY POC Glucose 122 mg/dL 70 - 99 10/[address] Abdomen/Pel Abdomen/Pelvi EXAM: CT ABDOMEN AND PELVIS WITHOUT CONTRAST - OPID vis wo IV s wo IV - [place] contrast CT contrast CT DATE: 09/21/2016 1:19 PM DATA ENTRY COORDINATOR Read by: Kal Desouza MD Dictated Date/time: 09/21/16 14:12 Electronically Signed by: Kal Desouza MD 09/21/16 14:22 FINAL REPORT INDICATION: Z01.818 Encounter for other preprocedural examination. Renal transplant evaluation. ADDITIONAL INFORMATION: None. COMPARISON: CT abdomen pelvis 07/16/2014 and renal ultrasound 07/29/2015 TECHNIQUE: Volumetric CT acquisition of the abdomen and pelvis without the intravenous administration contrast. Axial, coronal and sagittal reconstructions. IV CONTRAST: None ORAL CONTRAST: Water RADIATION DOSE: Total DLP: 1172 mGy*cm Estimated effective dose: DLP x 0.015 mSv COMPLICATIONS: None FINDINGS: Lines and tubes: None. Lower thorax: Lung bases are clear. No pleural effusions. The heart is within normal limits in size. Coronary artery calcifications. Liver: Mild pneumobilia is suggestion of a Monse's lobe. A too small to characterize hypodensity within the right hepatic lobe. Biliary tree: No intra- or extrahepatic biliary ductal dilation. Gallbladder: Subtle hyperdensity may suggest tiny stones/sludge. No wall thickening or pericholecystic fluid. Pancreas: Atrophic pancreas without ductal dilatation. No peripancreatic stranding. Spleen: No splenomegaly. Adrenals: No nodules. Kidneys and ureters: Bilateral atrophic kidneys with prominent stranding but without fluid collections. No renal stones or hydronephrosis. No obvious cystic lesions. No hydroureter. Bladder: Bladder collapsed without radiopaque stones. Prominent prostate. Gastrointestinal tract: Small hiatal hernia. The stomach is partially underdistended limiting optimal evaluation. No small or large bowel obstruction. Visualized appendix is within normal limits in size without right lower quadrant fluid collections stranding. Moderate stool burden. Peritoneum and retroperitoneum: No organized fluid collections or free air. Mild mesenteric stranding, not significant changed from prior exam. Lymph nodes: Prominent periportal lymph node unchanged. No other lymphadenopathy. Vasculature: IVC and abdominal aorta within parveen limits in caliber. Moderate vascular calcifications of the abdominal aorta and visceral branches. Iliac vessels: Scattered vascular calcifications of the bilateral common iliac arteries. Scattered vascular calcifications of the bilateral distal external iliac arteries. Prominent calcifications of th e bilateral internal iliac arteries. The iliac vessels are within normal limits in size without aneurysmal dilatation. Bones: Multilevel degenerative changes of the thoracolumbar and lumbosacral spine with vacuum phenomena on the lumbosacral spine. Facet arthrosis. Soft tissues: Small bilateral fat-containing inguinal hernias. Small fat- containing umbilical hernia with diastasis of the rectus abdominis muscle. Nonspecific soft tissue stranding and edema. IMPRESSION: 1. Bilateral kidneys with persistent moderate perinephric stranding likely related to chronic renal disease. 2. Persistent prominent periportal lymph node. No other lymphadenopathy. 3. Bilateral iliac arteries and branches as detailed. No aneurysmal dilatation. 4. Hepatomegaly. 5. No bowel obstruction. Moderate stool burden. REFERENCE HLA Misc Test See Report 1 08/31 Result [facility] LAB RESULTS Comment: Medical (08/31/16 9:50 AM) Reference lab Center results scanned in Care4. Results displayed in [id number]-Outside Lab Documents (Imaged) under date/time results were scanned. Report sent for scanning on 09/08/2016. REFERENCE Test Name PRA 08/31 [facility] LAB RESULTS RESULTS /2017 Medical Center HVI VAS HVI VAS Reason for exam: Peripheral arterial disease 08/21 - [facility] Arterial Arterial /2016 - Medical Upper or Upper or Center Lower Lower single single l l IMPRESSION: Read by: Jesus Morales MD Dictated Date/time: 08/22/15 11:12 Electronically Signed by: Jesus Morales MD 08/22/15 11:14 FINAL REPORT 1. On the right the ankle/brachial index is 0.94. 2. On the left the ankle/brachial index is nonobtainable. COMMENT: Bilateral lower extremities segmental pressures with velocity waveform analysis was performed. On the right, primarily triphasic waveforms are noted in the posterior tibial, and dorsalis pedis artery. The right toe brachial index is 0.69. On the left, primarily triphasic waveforms are noted in the posterior tibial, and dorsalis pedis artery. The left toe brachial index is 0.68. Retroperito Retroperitone EXAM: RENAL ULTRASOUND. 07/29 [facility] agus al Complete /2014 - [facility] Complete US US This report was dictated by a Prevention Rn/ Fellow. I have personally reviewed the images as Center well as the Resident's interpretation and agree with the findings. DATE: 07/29/2015 at 1449 hours. Read by: Rk Arauz MD Resident: Rk Arauz MD Dictated Date/time: 07/29/15 14:56 Electronically Signed by: Flores Pina MD 07/29/15 16:28 FINAL REPORT INDICATION: End-stage renal disease, pretransplant workup. COMPARISON: CT abdomen pelvis 07/16/2014. TECHNIQUE: Multiplanar sonographic imaging of the retroperitoneal structures was performed with Doppler and submitted for interpretation. DISCUSSION: The visualized portions of the liver appear normal. The right kidney measures 9.4 x 4.6 x 5 cm and the left kidney measures 9.2 x 4.9 x 4.4 cm. The kidneys are small and echogenic and demonstrate areas of cortical thinning. No cysts, masses, or calcifica tions are seen. No hydronephrosis or hydroureter is present. The bladder is collapsed and not evaluated. IMPRESSION: Bilateral atrophic kidneys without masses or acute abnormality. Chest wo Chest wo CT CHEST WITHOUT CONTRAST 2015-07-29 10:57:00 07/29 [facility] contrast CT contrast CT /2015 - [facility] COMPARISON: Chest x-ray from 10/16/2013 Read by: Angelito Matson Dictated Date/time: 07/29/15 11:46 Electronically Signed by: Angelito Matson 07/29/15 11:59 FINAL REPORT CLINICAL INDICATION: pre transplant workup TECHNIQUE: The chest CT was performed without intravenous contrast. The chest was scanned from apices to bases. Reformatted sagittal and coronal images were obtained and reviewed. FINDINGS: MEDIASTINUM/SO/VESSELS: The heart size is normal and there is no pericardial effusion. There are three-vessel coronary artery calcifications. Thoracic aortic calcifications are also present. Scattered subcentimeter mediastinal lymph nodes, majority of which demonstrate a fatty hilum, benign finding. Lack of intravenous contrast limits evaluation for hilar lymphadenopathy. LUNGS/PLEURA: Mucoid secretions are seen in the trachea and left mainstem bronchus. 2 mm nodule in the right lower lobe on axial image 99. 3 mm nodule in the right lower lobe on axial image 90 There is no pathologic pulmonary nodule or mass identified. A few scattered calcified granulomas are present. No pleural effusion or pneumothorax. BONES/SOFT TISSUES: Degenerative changes of the thoracic spine. Bilateral gynecomastia. UPPER ABDOMEN: Limited evaluation without acute focal abnormality. CONCLUSION: 1. No acute intrathoracic abnormality. 2. Few scattered noncalcified less than 4 mm pulmonary nodules do not require future followup unless the patient has clinical risk factors such as smoking history. Scattered bilateral calcified granulomas. 3. Three-vessel coronary artery calcifications. REFERENCE HLA Misc Test See Report 1 06/26 Result [facility] LAB RESULTS Comment: Medical (06/26/15 5:15 PM) Reference lab Center results scanned in Care4. Results displayed in [id number]-Outside Lab Documents (Imaged) under date/time results were scanned. Report sent for scanning on 06/30/2015. REFERENCE Test Name HLA TYPING 06/26 [facility] LAB RESULTS /2014 Medical Center Abdomen/Pel Abdomen/Pelvi INDICATION: Abdominal pain. Chronic renal insufficiency. 07/16 - [facility] vis wo IV s wo IV /2013 - Medical contrast CT contrast CT Center PROCEDURE: CT of the abdomen and pelvis was acquired with a multidetector scanner. No I.V. or enteric contrast was present for the exam. Axial, sagittal and coronal images were evaluated.. Read by: Myron Cheatham MD Dictated Date/time: 07/16/14 14:10 Electronically Signed by: Myron Cheatham MD 07/16/14 14:16 FINAL REPORT FINDINGS: The liver is slightly prominent in size measuring 19.1 cm in span. The right lobe is rather elongated suggesting a Monse's lobe. No focal masses is present in the liver, and the density is normal. The gallbladder has normal wall thickness with no stone or sludge. The pancreas has no inflammatory change, ductal dilatation or focal mass. The spleen is normal. There are no adrenal masses. The kidneys are normal in span bilaterally with no appreciable cortical thickness. There is mild perinephric stranding bilaterally. No focal mass is present in either kidney, and there are no calcificat ions. There is no hydronephrosis. The ureters are unremarkable. The urinary bladder was only minimally distended. The auguste are grossly normal. The stomach, small bowel, appendix and colon are unremarkable except for scattered colonic diverticula without diverticulitis. The aorta has moderately heavy calcifications. These extend into the iliac arteries and common femoral arteries. The lung bases are clear. There are mild degenerative changes in the spine and no suspicious lytic or blastic lesions are present. IMPRESSION: 1. The increase in the liver is likely a normal variant. The punctate calcification likely represent a calcified granuloma. 2. The perinephric stranding bilaterally is possibly related renal insufficiency. Correlate for any active inflammatory or infectious process. 3. Mildly prominent or scarring changes are present in the aorta and some mid sized arteries. Abdomen Abdomen EXAM: US ABDOMEN COMPLETE 12/04 - [facility] US complete US /2013 - [facility] This report was dictated by a Prevention Rn/Fellow. I have personally reviewed the images as Center well as the Resident's interpretation and agree with the findings. DATE: 12/04/2013 at 1138. Read by: Angelito Valentine MD Resident: Angelito Valentine MD Dictated Date/time: 12/04/13 13:54 Electronically Signed by: Coni Spence MD 12/04/13 17:39 FINAL REPORT INDICATION: Pretransplant workup. ADDITIONAL INFORMATION: End-stage renal disease. COMPARISON: CT abdomen pelvis without contrast 11/21/2012. TECHNIQUE: Multiplanar grayscale and color Doppler ultrasound images of the abdomen were obtained. FINDINGS: Liver demonstrates heterogenous echogenicity without masses. Right hepatic lobe measures 16.1 cm at the midclavicular line. Main portal vein is 1.2 cm with hepatopetal flow. Gallbladder normal without gallstones. Gallbladder wall thickness is 2.5 mm. No sonographic Kaufman's sign or pericholecystic fluid. Visualized portions of the intrahepatic biliary tree are of normal caliber. Common duct is 4.8 mm. Spleen measures 10.4 x 4.1 x 4.5 cm. Pancreas is unremarkable where visualized. The kidneys are echogenic, compatible with medical renal disease. No masses or hydronephrosis. Right kidney measures 10.4 x 3.9 x 4.9 cm. Left kidney measures 10.8 x 4.9 x 4.2 cm. Abdominal aorta is of normal caliber. Inferior vena cava unremarkable where visualized. No significant free fluid identified. IMPRESSION: 1. Heterogenous liver without focal lesions. 2. Mildly echogenic kidneys compatible with medical renal disease. CHEM PANEL eGFR 6 11/13 1Result Comment: The eGFR is calculated using the CKD-EPI formula. In most young, healthy individuals the eGFR will be >90 mL/ min/1.73m2. The eGFR declines with age. An eGFR of 60-89 may be normal in [facility] mL/min/1. some populations, particularly the elderly, for whom the CKD-EPI formula has not been extensively validated. Use of the eGFR is not recommended in the following populations: [place] [address] Center Individuals with unstable creatinine concentrations, including patients and those with serious co-morbid conditions. Patients with extremes in muscle mass or diet. The data above are obtained from the National Kidney Disease Education Program (NKDEP) which additionally recommends that when the eGFR is used in patients with extremes of body mass index for purposes of drug dosing, the eGFR should be multiplied by the estimated BMI. CHEM PANEL AGAP 17.3 meq/L 10.0 - 11/13 [facility] 20.0 [facility] CHEM PANEL Calcium Lvl 8.7 mg/dL 8.5 - 10.5 11/13 [facility] CHEM PANEL CO2 26 meq/L 24 - 32 11/13 [facility] CHEM PANEL Chloride Lvl 103 meq/L 95 - 109 11/13 [facility] CHEM PANEL Sodium Lvl 142 meq/L 135 - 145 11/13 [facility] CHEM PANEL Potassium Lvl 4.3 meq/L 3.5 - 5.1 11/13 [facility] CHEM PANEL Glucose Lvl 162 mg/dL 70 - 99 11/13 2Interpretive Data: Adult reference range values reflect the clinical guidelines of the [place] [employer]. [facility] CHEM PANEL Creatinine 8.9 mg/dL 0.5 - 1.4 11/13 [facility] CHEM PANEL BUN 51 mg/dL 7 - 22 11/13 [facility] Center Chest 2 Chest 2 views EXAM: XR CHEST 2 VIEWS 10/16 - [facility] - Medical This report was dictated by a Prevention Rn/Fellow. I have personally reviewed the images as Center well as the Resident's interpretation and agree with the findings. DATE: 10/16/2013 at 1249 hours Read by: Adis Dorado Resident: Adis Dorado Dictated Date/time: 10/16/13 13:34 Electronically Signed by: Colton Pace MD 10/16/13 17:03 FINAL REPORT INDICATION: ESRD; PRE-TRANSPLANT WORK-UP COMPARISON: 11/14/2012 at 0916 hours TECHNIQUE: Frontal and lateral chest radiographs DISCUSSION: There has been interval removal of the right-sided internal jugular dialysis catheter. The cardiomediastinal silhouette is normal. The costophrenic angles are sharp no pneumothorax identifie d. The lungs are clear. The bones and soft tissues are unremarkable. IMPRESSION: Normal chest radiograph. CHEMISTRY POC Potassium 5.4 meq/L 3.5 - 5.1 01/25 [facility] /2012 Medical Center BEDSIDE Comment1 Notify 01/25 NA [facility] GLUCOSE RN/MD /2012 Medical TESTING Center BEDSIDE Gluc POC 193 mg/dL 70 - 99 01/25 [place] 1Interpretive [facility] GLUCOSE [facility] /2012 Data: [facility] TESTING [facility] Upper Reportable Limit: 200 mg/dL. Vital Signs Vital Sign Value Date Comments Source Temperature Oral (F) 97.4 F 11/04/2016 [facility] BMI Calculated 30.97 11/04/2016 [facility] Weight 92.386 11/04/2016 [facility] Height 172.72 cm 11/04/2016 [facility] Respitory Rate 20 11/04/2016 [facility] Heart Rate 64 11/04/2016 [facility] Systolic (mm Hg) 146 11/04/2016 [facility] Diastolic (mm Hg) 66 11/04/2016 [facility] Height 172.72 cm 11/04/2016 [facility] BMI Calculated 31.24 11/04/2016 [facility] Weight 93.182 11/04/2016 [facility] Heart Rate 65 09/21/2016 [facility] Systolic (mm Hg) 179 09/21/2016 [facility] Diastolic (mm Hg) 73 09/21/2016 [facility] Height 172.72 cm 09/21/2016 [facility] Weight 93.182 09/21/2016 [facility] BMI Calculated 31.24 09/21/2016 [facility] Respitory Rate 18 08/31/2016 [facility] Heart Rate 66 08/31/2016 [facility] Weight 92.9 08/31/2016 [facility] Height 173 cm 08/31/2016 [facility] Systolic (mm Hg) 95 08/31/2016 [facility] Diastolic (mm Hg) 58 08/31/2016 [facility] BMI Calculated 31.04 08/31/2016 [facility] Height 172.72 cm 08/21/2015 [facility] BMI Calculated 31.39 08/21/2015 [facility] Weight 93.636 08/21/2015 [facility] Weight 93.892 08/14/2015 [facility] BMI Calculated 31.47 08/14/2015 [facility] Height 172.72 cm 08/14/2015 [facility] Temperature Oral (F) 97.2 F 08/14/2015 [facility] Respitory Rate 18 08/14/2015 [facility] Heart Rate 74 08/14/2015 [facility] Weight 95 07/29/2015 [facility] BMI Calculated 31.84 07/29/2015 [facility] Height 172.72 cm 07/29/2015 [facility] Weight 96.1 06/26/2015 [facility] BMI Calculated 31.38 06/26/2015 [facility] Systolic (mm Hg) 123 06/26/2015 [facility] Diastolic (mm Hg) 66 06/26/2015 [facility] Heart Rate 63 06/26/2015 [facility] Respitory Rate 19 06/26/2015 [facility] Height 175 cm 06/26/2015 [facility] Temperature Oral (F) 98.1 F 11/13/2013 [facility] Systolic (mm Hg) 150 11/13/2013 [facility] Diastolic (mm Hg) 69 11/13/2013 [facility] Respitory Rate 15 11/13/2013 [facility] Systolic (mm Hg) 186 11/13/2013 [facility] Diastolic (mm Hg) 83 11/13/2013 [facility] Respitory Rate 12 11/13/2013 [facility] BMI Calculated 29.1 11/13/2013 [facility] Weight 86.818 11/13/2013 [facility] Height 172.72 cm 11/13/2013 [facility] Temperature Oral (F) 97.9 F 11/13/2013 [facility] Systolic (mm Hg) 194 11/13/2013 [facility] Respitory Rate 16 11/13/2013 [facility] Heart Rate 77 11/13/2013 [facility] Diastolic (mm Hg) 80 11/13/2013 [facility] BMI Calculated 29.71 10/16/2013 [facility] Weight 87.9 10/16/2013 [facility] Respitory Rate 20 10/16/2013 [facility] Systolic (mm Hg) 99 10/16/2013 [facility] Heart Rate 73 10/16/2013 [facility] Diastolic (mm Hg) 53 10/16/2013 [facility] Temperature Oral (F) 97.0 F 10/16/2013 [facility] Height 172 cm 10/16/2013 [facility] Encounters Location Location Encounter Encounter Reason Attending ADM DC Status Source Details Type Number For Provider Date Date Visit [facility] TB [id number] PRE MAGO 11/14 Active [facility] 0 TRANSPLA ADROGUE [facility] NT EVAL Center [facility] Outpatient [id number] KIDNEY OWEN 12/12 12/12 Active [facility] 0 [place]/CARDI LOYALKA /2012 [facility] AC Center CLEARENC E PER JESS GRAVES [facility] DEMETRIUS [id number] BDDC-REC ATILLA 01/25 01/29 Active [facility] 3 FARHAD ERTAN /2012 [facility] CANCER Center SCREENIN G [facility] Outpatient [id number] LAB NORMA DESHPANDE 02/05 02/05 Active [facility] Outpatient [id number] LAB NORMA DESHPANDE 03/14 03/14 Active [facility] Outpatient [id number] LAB NORMA DESHPANDE 05/09 Active [facility] Outpatient [id number] LAB NORMA DESHPANDE 06/13 Active [facility] Outpatient [id number] LAB NORMA DESHPANDE 07/11 Active [facility] Outpatient [id number] LAB NORMA DESHPANDE 08/08 Active [facility] [place] [facility] OP [id number] Mago 10/16 11/15 [place] Transplant 1 Adrogue /2013 [facility] EC [id number] Farzana 11/13 11/13 [place] Emergency 5 Brian /2013 [facility] OP [id number] Mago 12/04 01/03 [place] Transplant 2 Adrogue /2013 [facility] OP [id number] Mago 07/16 08/15 [facility] [place] Recurring 3 Adrogue /2013 [facility] OP [id number] Mago 07/16 08/15 [facility] [place] Transplant 4 Adrogue /2013 [facility] Clinic - Center Pre [facility] OP [id number] Non 06/26 07/26 [facility] Transplant 5 Physician /2014 Medical Transplant Clinic - Center Ctr Pre [facility] OP [id number] Tequila 07/29 08/28 [place] [facility] Transplant 6 [facility] - Center Pre [facility] Outpatient [id number] Yuriy 08/14 08/15 [facility] 8 [place] [facility] Advanced Heart Failure [facility] Outpatient [id number] Yuriy 08/21 08/22 [facility]z 1 [place] [facility] OP [id number] Elda 08/31 09/30 [place] [facility] Transplant 7 [facility] Ctr Pre [facility] Outpt Diag [id number] Tequila 09/21 09/22 [facility] Out[facility] 0 [facility] [place] [facility] Outpatient [id number] Stiven Meansmi 09/21 09/22 [place] [facility] Bedded [id number] Stiven Chema 10/05 10/05 [place] [facility] Outpatient [facility] Recurring [id number] Tequila 11/04 12/04 [facility] [place] 8 [facility] Advanced Heart Failure [facility] Preadmit [id number] RENAL/DO NORMA DESHPANDE Active [facility] 9 NOT USE [facility] THIS Center ACCT FOR CHARGES F/C NOTES ONLY [facility] Outpatient [id number] COLONSCO NORMA DESHPANDE Active [facility] 1 [facility] E Procedures Procedure Code Date Perfomer Comments Source Colonoscopy<sup>1</fraire [id number] 01/25/2013 Repeat in 3 [facility] p> years [facility] Colonoscopy<sup>1</fraire [id number] 01/25/2013 Repeat in 3 [facility] p> years [facility] Cardiac [id number] 01/16/2013 [facility] Cardiac [id number] 01/16/2013 [facility] catheterization [facility] Hemodialysis [id number] 05/04/2012 [facility] Hemodialysis [id number] 05/04/2012 [facility] Chronic peritoneal [id number] [facility] Creation of [id number] [facility] arteriovenous shunt Medical or fistula for Center dialysis by external cannula Chronic peritoneal [id number] [facility] dialysis [facility] Creation of [id number] [facility] arteriovenous shunt [place] or fistula for dialysis by external cannula
--- OUTSIDE RECORDS SUMMARY | 2019-01-26 10:18 | XMS REPORT | CCD ---
:1955 Author Organization [facility] Care Team Providers Name Role Phone Antwan Nova Referring Provider Allergies, Adverse Reactions, Alerts Substance Reaction Status NKDA Active Problem List Condition Effective Dates Status Diabetes Resolved Hypertension Resolved renal failure Resolved Results BEDSIDE GLUCOSE TESTING Most recent to oldest [Reference Range]: 1 Gluc POC [facility] [70-99 mg/dL] 193 mg/dL 1 *HI* (01/25/2013 08:40:00) Comment1 Notify RN/MD *NA* (01/25/2013 08:40:00) 1Interpretive Data: Upper Reportable Limit: 200 mg/dL.CHEMISTRY Most recent to oldest [Reference Range]: 1 POC Potassium [3.5-5.1 mEq/L] 5.4 mEq/L *HI* (01/25/2013 08:41:00)
--- OUTSIDE RECORDS SUMMARY | 2019-01-26 10:19 | XMS REPORT ---
:1955 [facility] Address [address] [place] [address] Dr. Love [address] [place] [id number] Care Team Providers Name Role Phone Unavailable Unavailable Unavailable Problems This patient has no known problems. Allergies, Adverse Reactions, Alerts This patient has no known allergies or adverse reactions. Medications This patient has no known medications.
[2019-01-26 11:19] LABS: Potassium 3.2 mmol/L (3.5-5.1)
[2019-01-26 11:22] LABS: Absolute Lymphocytes (CBC) 1.1 K/uL (0.7-4.9); Basophils % 0.6 % (0-1.3); Eosinophils % 1.6 % (0-4.4); Hematocrit 21.1 % (39.6-49.0); MPV 8.3 fL (7.6-11.3); Monocytes % 10.7 % (3.3-12.3); RBC Red Blood Cell Count 1.96 M/uL (4.33-5.43)
[2019-01-26 12:11] LABS: Anisocytosis 1+; Blood Morphology Comment NOTED (NOT SEEN); Hypochromasia 2+; Macrocytosis 1+; Platelet Estimate ADEQ; Polychromasia 1+; Urine White Blood Cell Casts OK
[2019-01-26] MEDS ORDERED: FENTANYL CITR 100 MCG/2 ML ONE (13:06)
[2019-01-26] MEDS ORDERED: NA CHLORIDE 0.9% 250 ML ONE (13:07)
--- NOTE | 2019-01-26 16:35 | ER ---
Nurse's Notes [facility] Name: Chris Moreno Age: 63 yrs Sex: Male : 1955 Arrival Date: 01/26/2019 Time: 10:12 Bed 6 Private MD: Richard Lieberman R Diagnosis: Anemia in chronic kidney disease Presentation: 01/26 10:30 Presenting complaint: Patient states: was sent here from [facility] for Hgb=6.6, iw is usually above 8, has increased weakness, also states he has a "lump" in his right groin that is supposed to be removed on March 07 at [facility], was told it could possibly have a small leak in it. Transition of care: patient was not received from another setting of care. Onset of symptoms was January 26, 2019. Risk Assessment: Do you want to hurt yourself or someone else? Patient reports no desire to harm self or others. Initial Sepsis Screen: Does the patient meet any 2 criteria? No. Patient's initial sepsis screen is negative. Does the patient have a suspected source of infection? No. Patient's initial sepsis screen is negative. Care prior to arrival: None. 10:30 Method Of Arrival: Wheelchair iw 10:30 Acuity: LEANDRO 3 iw Triage Assessment: 10:40 General: Appears in no apparent distress. comfortable, Behavior is cooperative, bp appropriate for age, anxious. Pain: Denies pain. EENT: No deficits noted. Neuro: Level of Consciousness is awake, alert, obeys commands, Oriented to person, place, time, situation, Appropriate for age. Cardiovascular: No deficits noted. Respiratory: Airway is patent Respiratory effort is even, unlabored, Respiratory pattern is regular, symmetrical. GI: No signs and/or symptoms were reported involving the gastrointestinal system. : No signs and/or symptoms were reported regarding the genitourinary system. Derm: No deficits noted. Musculoskeletal: Circulation, motion, and sensation intact. Range of motion: intact in all extremities. Historical: - Allergies: 10:40 No Known Allergies; iw - PMHx: 10:40 Dialysis; Hypertension; Hyperlipidemia; Diabetes - IDDM; iw - PSHx: 10:40 left foot; iw - Immunization history:: Adult Immunizations up to date. - Social history:: Smoking status: Patient/guardian denies using tobacco. - Ebola Screening: : Patient negative for fever greater than or equal to 101.5 degrees Fahrenheit, and additional compatible Ebola Virus Disease symptoms Patient denies exposure to infectious person Patient denies travel to an Ebola-affected area in the 21 days before illness onset No symptoms or risks identified at this time. Screenin:45 Abuse screen: Denies threats or abuse. Denies injuries from another. Nutritional bp screening: No deficits noted. Tuberculosis screening: No symptoms or risk factors identified. Fall Risk None identified. Assessment: 10:40 General: SEE TRIAGE NOTE. bp 12:13 Reassessment: ALL CURRENT ORDERS COMPLETED, RESULTS PENDING. bp 13:00 Reassessment: CONSENT FOR PRBC SIGNED/WITNESSED, TRANSFUSION STARTED AT 1300. PT ON bp NIBP AND CONTINUOUS SPO2. 14:00 Reassessment: PRBC TRANSFUSION IN PROCESS. bp 15:44 Reassessment: PT D/C HOME AMBULATORY WITH FAMILY, DX WITH ANEMIA IN CHRONIC KIDNEY bp DISEASE. Vital Signs: 10:41 BP 152 / 42; Pulse 62; Resp 16; Temp 97.9; Pulse Ox 99% on R/A; Weight 81.65 kg; Height iw 5 ft. 8 in. (172.72 cm); Pain 0/10; 12:13 BP 156 / 50; Pulse 60; Resp 16; Pulse Ox 100% ; bp 13:00 BP 120 / 39; Pulse 51; Resp 14; Temp 97.8; Pulse Ox 98% ; bp 14:00 BP 139 / 42; Pulse 52; Resp 14; Temp 97.8; Pulse Ox 99% ; bp 15:44 BP 167 / 57; Pulse 67; Resp 16; Temp 98; Pulse Ox 100% ; bp 10:41 Body Mass Index 27.37 (81.65 kg, 172.72 cm) iw ED Course: 10:12 Patient arrived in ED. mr 10:12 Richard Lieberman MD is Private Physician. mr 10:18 [facility] jr8 10:18 Florencio Martínez MD is Attending Physician. jr8 10:25 Ricardo Frank, MEGHA is Primary Nurse. bp 10:38 Triage completed. iw 10:40 Arm band placed on. iw 10:45 Patient has correct armband on for positive identification. Bed in low position. Call bp light in reach. Side rails up X2. Adult w/ patient. 10:45 Inserted saline lock: 20 gauge in right forearm, using aseptic technique. Blood bp collected. 15:28 Richard Lieberman MD is Referral Physician. jrJanis 15:44 No provider procedures requiring assistance completed. IV discontinued, intact, bp bleeding controlled, No redness/swelling at site. Pressure dressing applied. Administered Medications: No medications were administered Outcome: 15:28 Discharge ordered by . rian 15:45 Discharged to home ambulatory, with family. bp 15:45 Condition: stable 15:45 Discharge instructions given to patient, Instructed on discharge instructions, follow up and referral plans. Demonstrated understanding of instructions, follow-up care. 15:46 Patient left the ED. bp Signatures: Gabrielle Nguyen Irene, RN RN iw Kristopher Hicks PA PA jr8 Ricardo Frank, RN RN bp
--- NOTE | 2019-01-26 16:36 | EDPHYS ---
Physician Documentation [facility] Name: Chris Moreno Age: 63 yrs Sex: Male : 1955 Arrival Date: 01/26/2019 Time: 10:12 Bed 6 Private MD: Richard Lieberman R ED Physician Florencio Martínez HPI: 01/26 10:42 This 63 yrs old Male presents to ER via Wheelchair with complaints of Abnormal jr8 Lab Results. 10:42 Patient with history of CKD. Stated that at dialysis this morning they told him his H/H jr8 was low and to be evaluated. Stated that he had slight more fatigue this week then normal. Denies BRBPR or melena. Severity of symptoms: At their worst the symptoms were mild in the emergency department the symptoms are unchanged. It is unknown whether or not the patient has had similar symptoms in the past. The patient has been recently seen by a physician:. Historical: - Allergies: 10:40 No Known Allergies; iw - PMHx: 10:40 Dialysis; Hypertension; Hyperlipidemia; Diabetes - IDDM; iw - PSHx: 10:40 left foot; iw - Immunization history:: Adult Immunizations up to date. - Social history:: Smoking status: Patient/guardian denies using tobacco. - Ebola Screening: : Patient negative for fever greater than or equal to 101.5 degrees Fahrenheit, and additional compatible Ebola Virus Disease symptoms Patient denies exposure to infectious person Patient denies travel to an Ebola-affected area in the 21 days before illness onset No symptoms or risks identified at this time. ROS: 10:42 Eyes: Negative for injury, pain, redness, and discharge, ENT: Negative for injury, jr8 pain, and discharge, Neck: Negative for injury, pain, and swelling, Cardiovascular: Negative for chest pain, palpitations, and edema, Respiratory: Negative for shortness of breath, cough, wheezing, and pleuritic chest pain, Abdomen/GI: Negative for abdominal pain, nausea, vomiting, diarrhea, and constipation, Back: Negative for injury and pain, MS/Extremity: Negative for injury and deformity, Skin: Negative for injury, rash, and discoloration, Neuro: Negative for headache, weakness, numbness, tingling, and seizure. 10:42 Constitutional: Positive for fatigue. Exam: 10:42 Eyes: Pupils equal round and reactive to light, extra-ocular motions intact. Lids and jr8 lashes normal. Conjunctiva and sclera are non-icteric and not injected. Cornea within normal limits. Periorbital areas with no swelling, redness, or edema. ENT: Nares patent. No nasal discharge, no septal abnormalities noted. Tympanic membranes are normal and external auditory canals are clear. Oropharynx with no redness, swelling, or masses, exudates, or evidence of obstruction, uvula midline. Mucous membranes moist. Neck: Trachea midline, no thyromegaly or masses palpated, and no cervical lymphadenopathy. Supple, full range of motion without nuchal rigidity, or vertebral point tenderness. No Meningismus. Cardiovascular: Regular rate and rhythm with a normal S1 and S2. No gallops, murmurs, or rubs. Normal PMI, no JVD. No pulse deficits. Respiratory: Lungs have equal breath sounds bilaterally, clear to auscultation and percussion. No rales, rhonchi or wheezes noted. No increased work of breathing, no retractions or nasal flaring. Abdomen/GI: Soft, non-tender, with normal bowel sounds. No distension or tympany. No guarding or rebound. No evidence of tenderness throughout. Brown stool with a negative guaiac Back: No spinal tenderness. No costovertebral tenderness. Full range of motion. Skin: Warm, dry with normal turgor. Normal color with no rashes, no lesions, and no evidence of cellulitis. MS/ Extremity: Pulses equal, no cyanosis. Neurovascular intact. Full, normal range of motion. Neuro: Awake and alert, GCS 15, oriented to person, place, time, and situation. Cranial nerves II-XII grossly intact. Motor strength 5/5 in all extremities. Sensory grossly intact. Cerebellar exam normal. Normal gait. Vital Signs: 10:41 BP 152 / 42; Pulse 62; Resp 16; Temp 97.9; Pulse Ox 99% on R/A; Weight 81.65 kg; Height iw 5 ft. 8 in. (172.72 cm); Pain 0/10; 12:13 BP 156 / 50; Pulse 60; Resp 16; Pulse Ox 100% ; bp 13:00 BP 120 / 39; Pulse 51; Resp 14; Temp 97.8; Pulse Ox 98% ; bp 14:00 BP 139 / 42; Pulse 52; Resp 14; Temp 97.8; Pulse Ox 99% ; bp 15:44 BP 167 / 57; Pulse 67; Resp 16; Temp 98; Pulse Ox 100% ; bp 10:41 Body Mass Index 27.37 (81.65 kg, 172.72 cm) iw MDM: 10:18 Patient medically screened. [facility] 15:27 Data reviewed: vital signs, nurses notes, lab test result(s), and as a result, I will jr8 discharge patient. Data interpreted: Pulse oximetry: on room air is 99 %. Interpretation: normal. Counseling: I had a detailed discussion with the patient and/or guardian regarding: the historical points, exam findings, and any diagnostic results supporting the discharge/admit diagnosis, lab results, the need for outpatient follow up, a family practitioner, to return to the emergency department if symptoms worsen or persist or if there are any questions or concerns that arise at home. Response to treatment: the patient's symptoms have markedly improved after treatment, and as a result, I will discharge patient. 01/26 10:37 Order name: CBC with Diff [facility] 01/26 10:37 Order name: T\T\S [facility] 01/26 10:37 Order name: Basic Metabolic Panel [facility] 01/26 10:42 Order name: Bb Add On 01/26 10:47 Order name: Occult Blood--Ancillary 01/26 11:11 Order name: Occult Blood--Ancillary; Complete Time: 11:59 EDTX 01/26 10:37 Order name: IV; Complete Time: 10:51 [facility] 01/26 11:20 Order name: Basic Metabolic Panel; Complete Time: 11:59 [facility]TX 01/26 11:25 Order name: CBC with Automated Diff; Complete Time: 12:21 EDTX 01/26 11:52 Order name: Type and Screen [facility] 01/26 12:13 Order name: CBC Smear Scan; Complete Time: 12:21 EDTX 01/26 12:54 Order name: ABO/RH no charge; Complete Time: 13:09 EDMS Administered Medications: No medications were administered Disposition: 16:23 Co-signature as Attending Physician, Florencio Martínez MD. rn Disposition: 01/26/19 15:28 Discharged to Home. Impression: Anemia in chronic kidney disease. - Condition is Stable. - Discharge Instructions: Anemia, Nonspecific, Blood Transfusion, Adult. - Medication Reconciliation Form, Thank You Letter, Antibiotic Education, Prescription Opioid Use form. - Follow up: Richard Lieberman MD; When: 2 - 3 days; Reason: Recheck today's complaints, Continuance of care, Re-evaluation by your physician. - Problem is new. - Symptoms have improved. Signatures: Dispatcher [employer] EDJaida Zepeda RN Florencio Melendez MD MD rn Roszak, Josh, PA PA jr8 Ricardo Frank RN RN bp Corrections: (The following items were deleted from the chart) 15:46 15:28 01/26/2019 15:28 Discharged to Home. Impression: Anemia in chronic kidney bp disease. Condition is Stable. Forms are Medication Reconciliation Form, Thank You Letter, Antibiotic Education, Prescription Opioid Use. Follow up: Richard Lieberman; When: 2 - 3 days; Reason: Recheck today's complaints, Continuance of care, Re-evaluation by your physician. Problem is new. Symptoms have improved. jr8
[2019-01-26 17:54] VITALS: BP 156/50; O2SAT 100
[2019-01-26 17:55] VITALS: TEMP 97.9
== END 2019-01-26 15:46 | disposition home or self-care (01) ==
LOC: ER 10:08
DX: D63.1 Anemia in chronic kidney disease (principal); N18.6 End stage renal disease; E11.22 Type 2 diabetes mellitus with diabetic chronic kidney disease; I12.0 Hypertensive chronic kidney disease with stage 5 chronic kidney disease or end stage renal disease; Z99.2 Dependence on renal dialysis; Z79.4 Long term (current) use of insulin
CPT/HCPCS: 85025; 80048; 36415; 86900; 86850; 86901; 82272; 99283; J3010; P9016

== ENCOUNTER 2019-03-27 21:42 | Inpatient (IN) | payer OTHER ==
--- OUTSIDE RECORDS SUMMARY | 2019-03-27 21:46 | XMS REPORT | Clinical Summary ---
:1955 Author Organization [facility] Address [address] [place] [address] Care Team Providers Name Role Phone Teresa Lieberman MD Primary Care Provider Allergies No Known Allergies Medications Medication Sig Dispensed Refills Start Date End Date Status calcium acetate Take 1,334 mg 0 Active (PHOSLO) 667 mg by mouth 3 capsule (three) times a day with meals. labetalol Take 600 mg by 0 Active (NORMODYNE) 200 mouth 2 (two) MG tablet times a day. lovastatin Take 20 mg by 0 Active (MEVACOR) 20 MG mouth nightly. tablet brimonidine-ariel Administer 1 0 Active lol (COMBIGAN) drop to both 0.2-0.5 % eyes 2 (two) ophthalmic times a day. solution aspirin Take 81 mg by 0 Active (ECOTRIN) 81 MG mouth every enteric coated morning. tablet losartan Take 100 mg by 0 Active (COZAAR) 100 MG mouth daily. tablet latanoprost Administer 1 0 Active (XALATAN) 0.005 drop to both % ophthalmic eyes nightly. solution vit B comp Take 1 tablet 0 Active C/folic acid/vit by mouth daily. D3 (DIALYVITE 800 PLUS D ORAL) clopidogrel Take 75 mg by 0 Active (PLAVIX) 75 mg mouth daily. tablet NIFEdipine XL Take 60 mg by 0 Active (PROCARDIA XL) mouth daily. 60 MG 24 hr tablet calcium Chew 2 tablets 0 Active carbonate (TUMS) every 2 (two) 200 mg calcium hours as needed (500 mg) for heartburn. chewable tablet insulin GLARGINE Inject 10 Units 0 Active (LANTUS) 100 under the skin unit/mL daily before injection (vial) breakfast. famotidine Take 40 mg by 0 Active (PEPCID) 40 MG mouth nightly. tablet minoxidil Take 2.5 mg by 0 Active (LONITEN) 2.5 MG mouth daily. tablet gabapentin Take 1 capsule 90 capsule 0 03/09/2019 Active (NEURONTIN) 100 (100 mg total) 9 mg capsule by mouth 3 (three) times a day for 30 days. valsartan Take 320 mg by 0 Discontinued (DIOVAN) 320 MG mouth every 9 tablet evening. acetaminophen-co Take 1 tablet 0 Discontinued deine (TYLENOL by mouth every 9 #3) 300-30 mg 6 (six) hours per tablet as needed for moderate pain. insulin NPH Inject 15 Units 0 Discontinued (HumuLIN-N) 100 under the skin 9 (Med List unit/mL every morning. Cleanup) injection insulin NPH Inject 10 Units 0 Discontinued (HumuLIN-N) 100 under the skin 9 unit/mL every evening. injection nystatin Apply topically 160 g 2 01/15/2019 (MYCOSTATIN) 2 (two) times a 9 100,000 day for 30 unit/gram cream days. doxycycline Take 1 tablet 20 tablet 0 01/15/2019 (VIBRA-TABS) 100 (100 mg total) 9 MG tablet by mouth 2 (two) times a day for 10 days. cefuroxime Take 500 mg by 0 Discontinued (CEFTIN) 500 MG mouth 2 (two) 9 (Stop Taking at tablet times a day. Discharge) Active Problems Problem Noted Date Pseudoaneurysm of right femoral artery 01/25/2019 Overview: Added automatically from request for surgery [id number] Cellulitis of right lower extremity 01/10/2019 Osteomyelitis of foot 03/30/2016 Peripheral vascular disease 01/14/2016 Essential hypertension 01/14/2016 Glaucoma 01/14/2016 ESRD (end stage renal disease) 01/14/2016 Gangrene of toe 01/14/2016 Encounters Date Type Specialty Care Team Description 03/15/2019 Office Visit Cardiovascular Zeny Ndiaye MD Peripheral vascular disease (HCC) (Primary Dx); Pseudoaneurysm of right femoral artery (HCC) 03/15/2019 Orders Only Cardiovascular Gayatri, Pseudoaneurysm of MEGHA Calderón right femoral artery ([facility]) (Primary Dx) 03/09/2019 Patient Outreach Quality Mitzi Heredia RN 03/07/2019 Anesthesia Event Cardiothoracic Aide Butler MD Robles Garcia, Elsa, NP 03/07/2019 Surgery Cardiothoracic Zeny Ndiaye MD OPEN REPAIR OF RIGHT Surgery FEMORAL PSEUDOANEURYSM, PRIMARY REPAIR OF SFA 03/07/2019 - Hospital Encounter General Internal Zeny Ndiaye MD Pseudoaneurysm of 03/09/[address]rell right femoral artery MD Terrance ([facility]) 03/06/2019 Pre-Admit Testing Pre-Admission Testing Zeny Ndiaye MD Preoperative testing Appointment (Primary Dx) 02/20/2019 Hospital Encounter Radiology Zeny Ndiaye MD Pseudoaneurysm of right femoral artery ([facility]) 02/20/2019 Pre-Admit Testing Pre-Admission Testing Zeny Ndiaye MD Pseudoaneurysm of Appointment right femoral artery ([facility]) 02/16/2019 Telephone Cardiovascular Kaitlynn Mendieta RN 02/06/2019 Telephone Cardiovascular Kaitlynn Mendieta RN 01/31/2019 Telephone Cardiovascular Kaitlynn Mendieta RN 01/29/2019 Telephone Cardiovascular Kaitlynn Mendieta RN 01/25/2019 Office Visit Cardiovascular Zeny Ndiaye MD Pseudoaneurysm of right femoral artery (HCC) (Primary Dx) 01/25/2019 Prep for Surgery Cardiovascular Gayatri, Pseudoaneurysm of MEGHA Calderón right femoral artery (HCC) (Primary Dx) 01/25/2019 Prep for Surgery Cardiovascular Kaitlynn Mendieta RN 01/10/2019 - Hospital Encounter Orthopedic Surgery Anand Palmer Cellulitis of right lower extremity (Primary Dx); 01/15/2019 MD Miguel Pseudoaneurysm of femoral artery ([facility]); Dionicio Cardenas ESRD (end stage renal disease) on dialysis ([facility]); MD Alysia Right leg swelling; Lux, Hypertensive urgency; Alli Rivas Stage 4 chronic kidney disease ([facility]); MD Tracee Peripheral vascular disease ([facility]); Essential hypertension; ESRD (end stage renal disease) ([facility]) 01/10/2019 Telephone Cardiovascular Kaitlynn Mendieta RN 12/28/2018 Orders Only Cardiovascular Kallie, Pseudoaneurysm (HCC) MEGHA Wu (Primary Dx) after 03/26/2018 Family History Medical History Relation Name Comments Diabetes Father Diabetes Mother Relation Name Status Comments Father Mother Social History Tobacco Use Types Packs/Day Years Used Date Former Smoker Cigarettes 0.25 Quit: 2010 Smokeless Tobacco: Never Used Comments: 20 Alcohol Use Drinks/Week oz/Week Comments Not Currently QUIT 2010 Sex Assigned at Date Recorded Not on file Job Start Date Occupation Industry Not on file Not on file Not on file Travel History Travel Start Travel End No recent travel history available. Last Filed Vital Signs Vital Sign Reading Time Taken Comments Blood Pressure 175/65 03/15/2019 8:44 AM CDT Pulse 53 03/15/2019 8:44 AM CDT Temperature 36.8 C (98.3 F) 03/15/2019 8:44 AM CDT Respiratory Rate 22 03/09/2019 11:44 AM CDT Oxygen Saturation 96% 03/09/2019 11:44 AM CDT Inhaled Oxygen Concentration - - Weight 85.8 kg (189 lb 1.6 oz) 03/15/2019 8:44 AM CDT Height 172.7 cm (5' 8") 03/15/2019 8:44 AM CDT Body Mass Index 28.75 03/15/2019 8:44 AM CDT Plan of Treatment Date Type Specialty Care Team Description 04/19/2019 Appointment Procedural Cardiology Zeny Ndiaye MD [address] [facility] [address] [place] [address] [phone] 04/26/2019 Office Visit Cardiovascular Zeny Ndiaye MD [address] [facility] [address] [place] [address] [phone] Health Maintenance Due Date Last Done Comments COLONOSCOPY SCREENING 2007 SHINGLES VACCINES (#1) 2007 INFLUENZA VACCINE 03/08/2019 Implants Implanted Type Area Legal Archivist Device Shelf Model / Identifier Expiration Serial / Date Lot Clip Arielleng Benigno Hemoclip Plus W/ Tape Ti Med - [id number] Medical N/A: N/A TELEFLEX MEDICAL [id number] / Implanted: 03/07/2019 at [facility] (Quantity not on file) Clips for / Internal Use Clip Ligtng Weck Hemoclip Plus W/ Tape Ti Med - [id number] Medical N/A: N/A TELEFLEX MEDICAL [id number] / Implanted: 03/07/2019 at [facility] (Quantity not on file) Clips for / Internal Use Clip Ligtng Weck Hemoclip Plus W/ Tape Ti Sm Strngpnt - [id number] Medical N/ A: N/A WECK CLOSURE [id number] / Implanted: 03/07/2019 at [facility] (Quantity not on file) Clips for SYSTEMS / Internal Use Clip Ligtng Weck Hemoclip Plus W/ Tape Ti Sm Strngpnt - [id number] Medical N/ A: N/A WECK CLOSURE [id number] / Implanted: 03/07/2019 at [facility] (Quantity not on file) Clips for SYSTEMS / Internal Use Clip Ligtng Weck Hemoclip Plus W/ Tape Ti Sm Strngpnt - [id number] Medical N/ A: N/A WECK CLOSURE [id number] / Implanted: 03/07/2019 at [facility] (Quantity not on file) Clips for SYSTEMS / Internal Use Clip Ligtng Weck Hemoclip Plus W/ Tape Ti Med - [id number] Medical N/A: N/A TELEFLEX MEDICAL [id number] / Implanted: 03/07/2019 at [facility] (Quantity not on file) Clips for / Internal Use Manquin Perph Vasclr Ptfe 1.2x10cm 1.65mm - [id number] Vascular N/A: N/A BARD PERIPHERAL 10/05/2023 [id number] / Implanted: 03/07/2019 at [facility] (Quantity not on file) Graft VASCULAR / [id number] Procedures Procedure Name Priority Date/Time Associated Comments Diagnosis POC GLUCOSE Routine 03/09/2019 11:47 Results for this AM CDT procedure are in the results section. HEMODIALYSIS Routine 03/09/2019 11:03 AM CDT POC GLUCOSE Routine 03/09/2019 8:47 Results for this AM CDT procedure are in the results section. HC COMPLETE BLD COUNT Routine 03/09/2019 3:45 Results for this W/AUTO DIFF AM CDT procedure are in the results section. ESTIMATED GFR Routine 03/09/2019 3:45 Results for this AM CDT procedure are in the results section. BASIC METABOLIC PANEL Routine 03/09/2019 3:45 Results for this AM CDT procedure are in the results section. POC GLUCOSE Routine 03/08/2019 9:19 Results for this PM CDT procedure are in the results section. CT ABDOMEN PELVIS W Routine 03/08/2019 8:23 Results for this CONTRAST PM CDT procedure are in the results section. POC GLUCOSE Routine 03/08/2019 5:20 Results for this PM CDT procedure are in the results section. POC GLUCOSE Routine 03/08/2019 12:12 Results for this PM CDT procedure are in the results section. POC GLUCOSE Routine 03/08/2019 7:08 Results for this AM CDT procedure are in the results section. HC COMPLETE BLD COUNT Routine 03/08/2019 5:25 Results for this W/AUTO DIFF AM CDT procedure are in the results section. ESTIMATED GFR Routine 03/08/2019 4:00 Results for this AM CDT procedure are in the results section. BASIC METABOLIC PANEL Routine 03/08/2019 4:00 Results for this AM CDT procedure are in the results section. POC GLUCOSE Routine 03/07/2019 10:51 Results for this PM CDT procedure are in the results section. POC GLUCOSE Routine 03/07/2019 7:42 Results for this PM CDT procedure are in the results section. HEPATITIS B SURFACE STAT 03/07/2019 5:29 Results for this ANTIGEN PM CDT procedure are in the results section. HEMODIALYSIS Routine 03/07/2019 4:49 PM CDT ACTIVATED CLOTTING Routine 03/07/2019 4:07 Results for this TIME PM CDT procedure are in the results section. SURGICAL PATHOLOGY Routine 03/07/2019 1:37 Results for this REQUEST PM CDT procedure are in the results section. ESTIMATED GFR Routine 03/07/2019 1:04 Results for this PM CDT procedure are in the results section. BILIRUBIN DIRECT Routine 03/07/2019 1:04 Results for this PM CDT procedure are in the results section. PROTHROMBIN TIME WITH Routine 03/07/2019 1:04 Results for this INR PM CDT procedure are in the results section. B NATRIURETIC PEPTIDE Routine 03/07/2019 1:04 Results for this PM CDT procedure are in the results section. CREATINE KINASE, TOTAL Routine 03/07/2019 1:04 Results for this (CPK) PM CDT procedure are in the results section. COMPREHENSIVE Routine 03/07/2019 1:04 Results for this METABOLIC PANEL PM CDT procedure are in the results section. LACTIC ACID LEVEL Routine 03/07/2019 1:04 Results for this PM CDT procedure are in the results section. LIPASE LEVEL Routine 03/07/2019 1:04 Results for this PM CDT procedure are in the results section. LIPID PANEL Routine 03/07/2019 1:04 Results for this PM CDT procedure are in the results section. MAGNESIUM LEVEL Routine 03/07/2019 1:04 Results for this PM CDT procedure are in the results section. PHOSPHORUS LEVEL Routine 03/07/2019 1:04 Results for this PM CDT procedure are in the results section. HC COMPLETE BLD COUNT Routine 03/07/2019 1:03 Results for this W/AUTO DIFF PM CDT procedure are in the results section. HEMOGLOBIN A1C Routine 03/07/2019 1:03 Results for this PM CDT procedure are in the results section. POC GLUCOSE Routine 03/07/2019 12:08 Results for this PM CDT procedure are in the results section. PREALBUMIN LEVEL Routine 03/07/2019 12:03 Results for this PM CDT procedure are in the results section. ACTIVATED CLOTTING Routine 03/07/2019 11:09 Results for this TIME AM CDT procedure are in the results section. ACTIVATED CLOTTING Routine 03/07/2019 10:24 Results for this TIME AM CDT procedure are in the results section. GLUCOSE LEVEL, SYRINGE STAT 03/07/2019 8:55 Results for this AM CDT procedure are in the results section. IONIZED CALCIUM, STAT 03/07/2019 8:55 Results for this ARTERIAL AM CDT procedure are in the results section. POTASSIUM, SYRINGE STAT 03/07/2019 8:55 Results for this AM CDT procedure are in the results section. HEMOGLOBIN, SYRINGE STAT 03/07/2019 8:55 Results for this AM CDT procedure are in the results section. SODIUM LEVEL, SYRINGE STAT 03/07/2019 8:55 Results for this AM CDT procedure are in the results section. ARTERIAL BLOOD GAS, STAT 03/07/2019 8:55 Results for this CORRECTED AM CDT procedure are in the results section. ACTIVATED CLOTTING Routine 03/07/2019 8:50 Results for this TIME AM CDT procedure are in the results section. ARTERIAL LINE Routine 03/07/2019 8:43 AM CDT Procedure Note - Aide Butler MD - 03/07/2019 8:43 AM CDT Arterial line Performed by: Aide Butler MD Authorized by: Aide Butler MD Patient Location: Pre-op Staff: Anesthesiologist: Aide Butler MD Resident/GEAR REPAIRER/AA: Carrol Humphrey CRNA Performed by: Resident/GEAR REPAIRER and resident/GEAR REPAIRER/AA Pre-procedure: patient identified, IV checked, site and side verified, risks and benefits discussed, procedure verified, surgical consent complete, patient position confirmed, monitors and equipment checked and pre-op evaluation complete MSBT: antiseptic used, all elements of maximal sterile barrier technique followed, hand hygiene performed, cap/gown used by other personnel and solutions labeled Indications: Indications: hemodynamic monitoring Anesthesia: Anesthesia: General Procedure Details: Arterial Line placement: Placed post induction Line placement site: Radial Line placement side: Right Arterial line gauge: 20 G Number of attempts: 1 Ultrasound guidance used: No Post-procedure: Post-procedure: Sterile dressing applied Post procedure circulation, sensation, movement: Normal Patient tolerance: Patient tolerated the procedure well with no immediate complications ME AN ELECTIVE ENDOTRACHEAL AIRWAY Routine 03/07/2019 8:42 AM CDT Procedure Note - Aide Butler MD - 03/07/2019 8:42 AM CDT Airway Performed by: Aide Butler MD Authorized by: Aide Butler MD Location: OR Urgency: Elective Difficult Airway: No Anesthesiologist: Aide Butler MD Performed by: anesthesiologist Preoxygenated with 100% O2: Yes C-spine Precautions Maintained Throughout: Yes Mask Ventilation: Easy mask Final Airway Type: Endotracheal airway Final Endotracheal Airway: ETT Cuffed: Yes Technique Used: Video laryngoscopy Devices/Methods Used in Placement: Intubating stylet Insertion Site: Oral Blade Type: Dee Laryngoscope Blade/Videolaryngoscope Blade Size: 2 ETT Size (mm): 8.0 Cuff at minimum occlusion pressure: Yes Measured from: Lips Placement Verified by: CO2 detection, direct visualization and equal breath sounds Laryngoscopic view: Grade IIb - view of arytenoids or posterior of glottis only Rapid Sequence Induction (RSI): No Modified RSI: No Number of Attempts at Approach: 1 Anterior easy glide SODIUM LEVEL, SYRINGE STAT 03/07/2019 6:00 Results for this AM CDT procedure are in the results section. GLUCOSE LEVEL, SYRINGE STAT 03/07/2019 6:00 Results for this AM CDT procedure are in the results section. POTASSIUM, SYRINGE STAT 03/07/2019 6:00 Results for this AM CDT procedure are in the results section. HEMOGLOBIN, SYRINGE STAT 03/07/2019 6:00 Results for this AM CDT procedure are in the results section. PREPARE RBC Routine 03/06/2019 11:39 Results for this AM CDT procedure are in the results section. TYPE AND SCREEN Routine 03/06/2019 11:39 Preoperative testing Results for this AM CDT procedure are in the results section. XR CHEST 2 VW Routine 02/20/2019 12:44 Pseudoaneurysm of Results for this PM CDT right femoral artery procedure are in (HCC) the results section. ECG PRE/POST OP Routine 02/20/2019 11:54 Pseudoaneurysm of Results for this AM CDT right femoral artery procedure are in (HCC) the results section. ESTIMATED GFR Routine 02/20/2019 11:39 Results for this AM CDT procedure are in the results section. HC COMPLETE BLD COUNT Routine 02/20/2019 11:39 Pseudoaneurysm of Results for this W/AUTO DIFF AM CDT right femoral artery procedure are in (HCC) the results section. BASIC METABOLIC PANEL Routine 02/20/2019 11:39 Pseudoaneurysm of Results for this AM CDT right femoral artery procedure are in (HCC) the results section. POC GLUCOSE Routine 01/15/2019 8:31 Results for [...] procedure are in the results section. after 03/26/2018 Results POC glucose (03/09/2019 11:47 AM CDT)Only the most recent of25 resultswithin the time period is included. [facility] POC glucose 161 (H) 65 - 99 mg/dL [facility] Comment: [facility] Notified RN Meter ID: [id number] Frozen Pie Maker: Keith Schmidt Specimen Performing Organization Address City/[facility] Centercode Phone Number [facility] DEPARTMENT OF PATHOLOGY AND [address] [place] [address] Estimated GFR (03/09/2019 3:45 AM CDT)Only the most recent of10 resultswithin the time period is included. [facility] Estimated GFR 10 (A) mL/min/1.73 [facility] Comment: [address] CatergoryUnitsInterpretation G1 >=90 Normal or high G2 60-89Mildly decreased Y0x66-12Tevwfd to moderately decreased X2k25-33Ragproibnm to severely decreased G4 15-29Severely decreased G5 <15Kidney failure The eGFR was calculated using the Chronic Kidney Disease Epidemiology Collaboration (CKD-EPI) equation. Interpretation is based on recommendations of the National Kidney Foundation-Kidney Disease Outcomes Quality Initiative (NKF-KDOQI) published in 2014. Specimen Plasma specimen Performing Organization Address City/[facility]/Zipcode Phone Number [facility] DEPARTMENT OF PATHOLOGY AND [address], [place] [id number] [place] [id number] CBC with platelet and differential (03/09/2019 3:45 AM CDT)Only the most recent of8 resultswithin the time period is included. [facility] WBC 9.02 4.50 - 11.00 [facility] k/uL [facility] RBC 2.66 (L) 4.40 - 6.00 [facility] m/uL [facility] HGB 9.4 (L) 14.0 - 18.0 [facility] g/dL HOSPITAL HCT 30.1 (L) 41.0 - 51.0 % [facility] MCV 113.2 (H) 82.0 - 100.0 [facility] MCH 35.3 (H) 27.0 - 34.0 pg [facility] MCHC 31.2 31.0 - 37.0 [facility] g/dL [facility] RDW - SD 65.9 (H) 37.0 - 55.0 fL [facility] MPV 10.9 8.8 - 13.2 fL [facility] Platelet count 100 (L) 150 - 400 k/uL [facility] Nucleated RBC 0.00 /100 WBC [facility] Neutrophils 72.2 (H) 39.0 - 69.0 % [facility] Lymphocytes 14.5 (L) 25.0 - 45.0 % [facility] Monocytes 10.2 (H) 0.0 - 10.0 % [facility] Eosinophils 2.3 0.0 - 5.0 % [facility] Basophils 0.4 0.0 - 1.0 % [facility] Immature granulocytes 0.4Comment: 0.0 - 1.0 % [facility] "[facility] granulocytes" (promyelocytes , myelocytes, metamyelocytes ) Specimen Performing Organization Address City/[facility] Centercond Phone Number [facility] DEPARTMENT OF PATHOLOGY AND [address] [place] [address] GENOMIC MEDICINE [address] [address] Basic metabolic panel (03/09/2019 3:45 AM CDT)Only the most recent of8 resultswithin the time period is included. Sodium 137 135 - 148 mEq/L [facility] Potassium 4.2 3.5 - 5.0 mEq/L [facility] Chloride 97 (L) 98 - 112 mEq/L [facility] CO2 26 24 - 31 mEq/L [facility] Anion gap 14@ANIO 7 - 15 mEq/L [facility] BUN 38 (H) 8 - 23 mg/dL [facility] Creatinine 5.84 (H) 0.70 - 1.20 mg/dL [facility] Glucose 97 65 - 99 mg/dL [facility] Calcium 9.1 8.8 - 10.2 mg/dL [facility] Specimen Plasma specimen Performing Organization Address City/State/Zipcode Phone Number [facility] DEPARTMENT OF PATHOLOGY AND [address] [place] [address] GENOMIC MEDICINE [facility] [address] [place] [address] [place] Abdomen Pelvis W Contrast (03/08/2019 8:23 PM CDT) Specimen Narrative Performed At EXAMINATION:CT ABDOMEN PELVIS W CONTRAST [facility] CLINICAL HISTORY:abscess TECHNIQUE: Multiple axial images of the abdomen and pelvis were obtained following intravenous administration of iodinated contrast. Sagittal and coronal computerized reformatted images were also obtained.Automatic exposure control and iterative reconstruction techniques used to reduce dose. COMPARISON:January 11, 2019 FINDINGS: 2018 lung bases are clear The liver appears enlarged with a vague nodularity present. Cirrhosis cannot entirely be excluded and clinical correlation is recommended. The spleen is at the upper limits of normal in size measuring 12.7 cm in the craniocaudal diameter Moderate ascites in the upper abdomen The gallbladder, adrenals and kidneys are within normal limits Small bowel and colon are within normal limits. There is no evidence of appendicitis No evidence of abscess within the abdomen or pelvis Pelvis: An 11 x 5 x 14 cm loculated fluid collection is present within the subcutaneous fat of the left buttock. Finding is likely secondary to a large hematoma. No air is present within this collection to suggest abscess. Age related changes are present throughout the bony structures without evidence of a suspicious focal lesion. Lung bases are clear Mild calcified atherosclerotic vascular disease throughout the arterial structures. IMPRESSION: An 11 x 5 x 14 cm loculated fluid collection is present within the subcutaneous fat of the left buttock. Finding is likely secondary to a large hematoma. No air is present within this collection to suggest abscess. The liver and spleen are enlarged. There is vague nodularity of the liver. Cirrhosis cannot be excluded Moderate amount of ascites throughout the abdomen and pelvis [facility]-[id number] Procedure Note Interface, Radiology Results Incoming - 03/08/2019 8:36 PM CDT EXAMINATION: CT ABDOMEN PELVIS W CONTRAST CLINICAL HISTORY: abscess TECHNIQUE: Multiple axial images of the abdomen and pelvis were obtained following intravenous administration of iodinated contrast. Sagittal and coronal computerized reformatted images were also obtained.Automatic exposure control and iterative reconstruction techniques used to reduce dose. COMPARISON: January 11, 2019 FINDINGS: 2018 lung bases are clear The liver appears enlarged with a vague nodularity present. Cirrhosis cannot entirely be excluded and clinical correlation is recommended. The spleen is at the upper limits of normal in size measuring 12.7 cm in the craniocaudal diameter Moderate ascites in the upper abdomen The gallbladder, adrenals and kidneys are within normal limits Small bowel and colon are within normal limits. There is no evidence of appendicitis No evidence of abscess within the abdomen or pelvis Pelvis: An 11 x 5 x 14 cm loculated fluid collection is present within the subcutaneous fat of the left buttock. Finding is likely secondary to a large hematoma. No air is present within this collection to suggest abscess. Age related changes are present throughout the bony structures without evidence of a suspicious focal lesion. Lung bases are clear Mild calcified atherosclerotic vascular disease throughout the arterial structures. IMPRESSION: An 11 x 5 x 14 cm loculated fluid collection is present within the subcutaneous fat of the left buttock. Finding is likely secondary to a large hematoma. No air is present within this collection to suggest abscess. The liver and spleen are enlarged. There is vague nodularity of the liver. Cirrhosis cannot be excluded Moderate amount of ascites throughout the abdomen and pelvis [facility]-[id number] Performing Organization Address City/[facility]/[place] [address] Hepatitis B surface antigen (03/07/2019 5:29 PM CDT)Only the most recent of2 resultswithin the time period is included. Hepatitis B surface Non-reactive Non-reactive [facility] Specimen Blood Performing Organization Address City/[facility] Cent[facility]ode Phone Number [facility] DEPARTMENT OF PATHOLOGY AND [address] [place] [address] Activated clotting time (03/07/2019 4:07 PM CDT)Only the most recent of4 resultswithin the time period is included. Activated clotting 208 (H) 96 - 152 sec [facility] Comment: HOSPITAL Meter ID: [id number] Frozen Pie Maker: Marek Vigil Specimen Performing Organization Address [facility]/Zipcode Phone Number [facility] DEPARTMENT OF PATHOLOGY AND [address] [place] [address] Surgical pathology request (03/07/2019 1:37 PM CDT) [facility] DEPARTMENT OF PATHOLOGY AND GENOMIC MEDICINE Surgical pathology See link below [facility] DEPARTMENT OF report for PDF Lab PATHOLOGY AND Report GENOMIC MEDICINE Result status This is Final [facility] DEPARTMENT OF Report for PATHOLOGY AND [id number] GENOMIC MEDICINE Specimen Performing Organization Address City/[facility]/Zipcode Phone Number [facility] DEPARTMENT OF PATHOLOGY AND [address] [place] [address] GENOMIC MEDICINE Prothrombin time with INR (03/07/2019 1:04 PM CDT)Only the most recent of2 resultswithin the time period is included. Prothrombin time 16.6 (H) 11.5 - 14.5 [facility] INR 1.4 [place] Comment: [facility] International Normalized Ratio (INR) is a therapeutic HOSPITAL monitoring tool for patients who are stable on oral anticoagulant therapy. An INR of 2.0-3.0 is suggested for deep vein thrombosis/pulmonary embolism. Specimen Blood Performing Organization Address City/[facility]/Zipcode Phone Number [facility] DEPARTMENT OF PATHOLOGY AND [address] [place] [address] Phosphorus level (03/07/2019 1:04 PM CDT) Phosphorus 4.8 (H) 2.4 - 4.5 mg/dL [facility] Specimen Plasma specimen Performing Organization Address City/[facility] Cent[facility]ode Phone Number [facility] DEPARTMENT OF PATHOLOGY AND [address] [place] [address] B natriuretic peptide (03/07/2019 1:04 PM CDT) BNP 3,666 (H) 0 - 100 pg/mL [facility] Specimen Blood Performing Organization Address City/[facility]/Zipcode Phone Number [facility] DEPARTMENT OF PATHOLOGY AND [address] [place] [address] [address] Magnesium level (03/07/2019 1:04 PM CDT) Magnesium 2.0 1.6 - 2.4 mg/dL [facility] Specimen Plasma specimen Performing Organization Address City/[facility]/Zipcode Phone Number [facility] DEPARTMENT OF PATHOLOGY AND [address] [place] [address] [address] Lipase level (03/07/2019 1:04 PM CDT) Lipase 13 13 - 60 U/L [facility] Specimen Plasma specimen Performing Organization Address City/[facility] Centercode Phone Number [facility] DEPARTMENT OF PATHOLOGY AND [address] [place] [phone] [place] [address] Lactic acid level (03/07/2019 1:04 PM CDT)Only the most recent of2 resultswithin the time period is included. Lactic acid 1.0 0.5 - 2.2 mmol/L [facility] Specimen Plasma specimen Performing Organization Address [facility] Centercode Phone Number [facility] DEPARTMENT OF PATHOLOGY AND [address] [place] [address] Creatine kinase, total (CPK) (03/07/2019 1:04 PM CDT) Creatine kinase 155 39 - 308 U/L [facility] Specimen Plasma specimen Performing Organization Address [facility] Centercode Phone Number [facility] DEPARTMENT OF PATHOLOGY AND [address] [place] [address] Bilirubin direct (03/07/2019 1:04 PM CDT) Bilirubin direct 0.7 (H) 0.0 - 0.3 mg/dL [facility] Specimen Plasma specimen Performing Organization Address [facility] Centercode Phone Number [facility] DEPARTMENT OF PATHOLOGY AND [address] [place] [address] Lipid panel (03/07/2019 1:04 PM CDT)Only the most recent of2 resultswithin the time period is included. Cholesterol 110 <200 mg/dL [facility] Triglycerides 107 <150 mg/dL [facility] HDL cholesterol 40 >40 mg/dL [facility] LDL cholesterol 55Comment: Result <100 mg/dL [place] obtained by direct [facility] LDL measurement [facility] Lipid panel [facility] interpretation Comment: [facility] Total Cholesterol (mg/dL) HOSPITAL <200 Desirable 044-152Bijnjkuioq-phyq >=240High Triglycerides (mg/dL) <150 Normal 054-514Zbivhaxrxr-mtsv 200-499High >=500Very high HDL Cholesterol (mg/dL) <40Low (male) <40Low (female) LDL Cholesterol (mg/dL) <100 Optimal 100-129Near or above optimal 657-792Qqetfladew-jwzc 160-189High >=190Very high Risk Catergories that modify [...] mg/dL) Specimen Plasma specimen Performing Organization Address City/State/Zipcode Phone Number [facility] DEPARTMENT OF PATHOLOGY AND [address] [place] [address] [address] [address] Comprehensive metabolic panel (03/07/2019 1:04 PM CDT)Only the most recent of2 resultswithin the time period is included. Sodium 134 (L) 135 - 148 [facility] mEq/L [facility] Potassium 4.5 3.5 - 5.0 [facility] mEq/L [facility] Chloride 93 (L) 98 - 112 mEq/L [facility] CO2 22 (L) 24 - 31 mEq/L [facility] Anion gap 19@ANIO (H) 7 - 15 mEq/L [facility] BUN 54 (H) 8 - 23 mg/dL [facility] Creatinine 7.61 (H) 0.70 - 1.20 [facility] mg/dL [facility] Glucose 153 (H) 65 - 99 mg/dL [facility] Calcium 8.7 (L) 8.8 - 10.2 [facility] mg/dL [facility] Protein 7.5 6.3 - 8.3 g/dL [facility] Comment: HOSPITAL 4.6-7.0 g/dL 1 week 4.4-7.6 g/dL 7 months-1year5.1-7.3 g/dL 1-2 years5.6-7.5 g/dL >3 years6.0-8.0 g/dL 18-150 6.3-8.3 g/dL Albumin 3.1 (L) 3.5 - 5.0 g/dL [facility] A/G ratio 0.7 0.7 - 3.8 [facility] Alkaline phosphatase 485 (H) 40 - 129 U/L [facility] AST 36 10 - 50 U/L [facility] ALT 39 5 - 50 U/L [facility] Total bilirubin 1.0 0.0 - 1.2 [facility] mg/dL [facility] Specimen Plasma specimen Performing Organization Address City/[facility] Centercode Phone Number [facility] DEPARTMENT OF PATHOLOGY AND [address] [place] [address] [place] [address] Hemoglobin A1c (03/07/2019 1:03 PM CDT)Only the most recent of2 resultswithin the time period is included. Hemoglobin A1C 5.1 4.0 - 5.6 % [facility] Comment: HOSPITAL HbA1c cutoffs for diagnosing diabetes: 4.0% - 5.6%=normal 5.7% - 6.4%=increased risk for diabetes (prediabetes) >=6.5%=diabetes Goals for glycemic control (ADA 2016) < 7.0%Target for non adults with diabetes. More or less stringent targets may be appropriate for individual patients. <7.5% Target for Children and adolescents with type 1 diabetes. Specimen Blood Performing Organization Address City/[facility] Centercode Phone Number [facility] DEPARTMENT OF PATHOLOGY AND [address] [place] [phone] [place] [phone] Prealbumin level (03/07/2019 12:03 PM CDT) Prealbumin 22 16 - 32 mg/dL [facility] Specimen Serum Performing Organization Address [facility] Centercond Phone Number [facility] DEPARTMENT OF PATHOLOGY AND [address] [place] [address] [address] Sodium level, syringe (03/07/2019 8:55 AM CDT)Only the most recent of2 resultswithin the time period is included. Sodium, syringe 133 (L) 135 - 148 mEq/L [facility] Specimen Blood Performing Organization Address City/[facility] Centercode Phone Number [facility] DEPARTMENT OF PATHOLOGY AND [address] [place] [address] Potassium, syringe (03/07/2019 8:55 AM CDT)Only the most recent of2 resultswithin the time period is included. Potassium, syringe 3.9 3.5 - 5.0 mEq/L [facility] Specimen Blood Performing Organization Address [facility] Centercode Phone Number [facility] DEPARTMENT OF PATHOLOGY AND [address] [place] [address] Ionized calcium, arterial (03/07/2019 8:55 AM CDT) Ionized calcium, 0.99 (L) 1.11 - 1.32 [facility] arterial mmol/L [facility] Specimen Blood Performing Organization Address [facility]cond Phone Number [facility] DEPARTMENT OF PATHOLOGY AND [address] [place] [address] Hemoglobin, syringe (03/07/2019 8:55 AM CDT)Only the most recent of2 resultswithin the time period is included. Hemoglobin, syringe 10.2 (L) 14.0 - 18.0 g/dL [facility] Specimen Blood Performing Organization Address City/[facility] Centercode Phone Number [facility] DEPARTMENT OF PATHOLOGY AND [address] [place] [address] Glucose level, syringe (03/07/2019 8:55 AM CDT)Only the most recent of2 resultswithin the time period is included. Glucose, syringe 114 (H) 65 - 99 mg/dL [facility] Specimen Blood Performing Organization Address City/[facility] Centercode Phone Number [facility] DEPARTMENT OF PATHOLOGY AND [address] [place] [address] Arterial blood gas, corrected (03/07/2019 8:55 AM CDT) pH, arterial 7.34 (L) 7.35 - 7.45 [facility] pCO2, arterial 39 35 - 45 mmHg [facility] pO2, arterial 250 (H) 80 - 90 mmHg [facility] Temperature, Celsius 36.2 Degrees C [facility] O2 saturation, 100 95 - 100 % [facility] arterial HOSPITAL pH, arterial 7.36 [facility] HOSPITAL pCO2, arterial 38 mmHg [facility] corrected HOSPITAL pO2, arterial 247 mmHg [facility] HOSPITAL Base excess, arterial -4 (L) -2 - 2 mEq/L [facility] Specimen Blood Performing Organization Address City/[facility] Centercode Phone Number [facility] DEPARTMENT OF PATHOLOGY AND [address] [place] [address] Prepare RBC (03/06/2019 11:39 AM CDT) Pathologist [facility] Product name Apheresis Red Cell [facility] AS3 #2 LR HOSPITAL Unit number [id number] [facility] Product code [id number] [facility] Dispense status Returned to not [facility] transfused HOSPITAL Blood expiration [facility] Blood type code 5100 [facility] Blood type O POSITIVE [facility] Product name Red Blood Cells [facility] -1, Leukored HOSPITAL Unit number [id number] [facility] Product code [id number] [facility] Dispense status Returned to BB not [facility] transfused HOSPITAL Blood expiration [facility] Blood type code 5100 [facility] Blood type O POSITIVE [facility] Specimen Performing Organization Address City/State/Zipcode Phone Number [facility] DEPARTMENT OF PATHOLOGY AND [address] [place] [address] Type and screen (03/06/2019 11:39 AM CDT)Only the most recent of2 resultswithin the time period is included. 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 IMPRESSION: 1.Lungs are clear. 2.Mediastinal contours and cardiac silhouette are unremarkable. 3.No acute osseous abnormality. 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 IMPRESSION: 1. Lungs are clear. 2. Mediastinal contours and cardiac silhouette are unremarkable. 3. No acute osseous abnormality. [facility]-[id number] Performing Organization Address City/[facility] Centercode Phone Number [facility] [address] [place] [address] ECG Pre/Post Op (02/20/2019 11:54 AM CDT) Ventricular rate 50 [facility] Atrial rate 50 [facility] ME interval 210 [facility] QRSD interval 114 [facility] QT interval 496 [facility] QTC interval 452 [facility] P axis 1 65 [facility] QRS axis 1 11 [facility] T wave axis -21 [facility] EKG impression Sinus bradycardia with [facility] MUSE 1st degree AV block-Incomplete right bundle branch block-Borderline ECG- Specimen Narrative Performed At Performing Organization Address City/State/Zipcode Phone Number [facility] MUSE [address] [place] [address] Vancomycin level, random (01/15/2019 4:00 AM CDT) Vancomycin, random 19.5 ug/mL [facility] Specimen Serum Performing Organization Address City/State/Zipcode Phone Number [facility] DEPARTMENT OF PATHOLOGY AND [place] [address] [facility] [address] [place] [address] C difficile toxin (01/13/2019 1:16 PM CDT) Clostridium No Clostridium difficle toxin present [facility] difficile toxin Comment: HOSPITAL Specimen Information Specimen Source: Stool Specimen Site: Nonpreserved Specimen Stool - Nonpreserved Performing Organization Address City/State/Zipcode Phone Number [facility] DEPARTMENT OF PATHOLOGY AND [address] [place] [address] [facility] [address] [place] [address] CTA Abdomen Pelvis W And Or Wo [...] lesion.Tiny left para-aortic lymph nodes. Extensive atherosclerosis. [facility]-[id number] Procedure Note Hm Interface, Radiology Results Incoming - 01/11/2019 11:45 [...] left para- aortic lymph nodes. Extensive atherosclerosis. [facility]-[id number] Performing Organization Address City/[facility] Centercode Phone Number [facility] [address] [place] [address] Blood culture, aerobic & anaerobic (01/10/2019 7:55 PM CDT)Only the most recent of2 resultswithin the time period is included. Blood culture No growth after 5 days of incubation. [facility] isolate Comment: HOSPITAL Specimen Information Specimen Source: Blood Specimen Site: Unspecified Specimen Blood Performing Organization Address [facility] Centercode Phone Number [facility] DEPARTMENT OF PATHOLOGY AND [address] [place] [address] Lactic acid level, SEPSIS - Now and repeat 2x every 3 hours (01/10/2019 7:30 PM CDT) Lactic acid 1.0 0.5 - 2.2 mmol/L [facility] Specimen Blood Performing Organization Address [facility] Centercond Phone Number [facility] DEPARTMENT OF PATHOLOGY AND [address] [place] [address] Us duplex venous lower extremity (01/10/2019 6:05 PM CDT) Specimen Narrative Performed At [facility] Vascular Ultrasound Laboratory Lower Extremity Venous Report [address] [place] [address] Pat.Name:CHRIS ANDINO Pat.ID:[id number] St.Date: 01/10/2019Refer.MD:PHYSICIAN, EMERGENCY, Exam Time: 5:22:00 PMStudy Type:LE Venous Height:68inWeight: 187lb BSA: 1.99 m2 DOBAge:1955,63Y Sex: MALESonogrphr: Pat Roy RVT Pat. Stat.:Inpatient Room:EDT TapeVol: MAGDY, CPT - 4: 52206 Echo Event ID:[id number] Order ID:[id number] Reason for Study:Right leg swelling and pain. [...] [facility] Lower Extremity Venous Report [address] [address] Pat.Name: CHRIS ANDINO Pat.ID: [id number] .Date: 01/10/2019 Refer.MD: PHYSICIAN, EMERGENCY, Exam Time: 5:22:00 PM Study Type:LE Venous Height: 68in Weight: 187lb BSA: 1.99 m2 Age: 9 1955,63Y Sex: MALE Sonogrphr: Pat Roy RVT Pat. Stat.:Inpatient Room: EDT Tape Vol: LN, CPT - 4: 61188 Echo Event ID:[id number] Order ID: [id number] Reason for Study:Right leg swelling and pain. [...] René Lindsey MD, RPVI Performing Organization Address [facility] Centercode Phone Number [facility] [address] [place] [address] Partial thromboplastin time, activated (01/10/2019 4:34 PM CDT) PTT 34.1 23.0 - 36.0 [facility] Comment: [facility] PTT therapeutic range for unfractionated heparin is 61.0-112.0 seconds which corresponds to Anti-Xa 0.3-0.7 U/ml. Specimen Blood Performing Organization Address [facility] Centercode Phone Number [facility] DEPARTMENT OF PATHOLOGY AND [address] [place] [address] GENOMIC MEDICINE [address] [address] Us duplex arterial lower extremity (01/09/2019 9:02 AM CDT) Specimen Narrative Performed At [facility] Lower Extremity Arterial Duplex Report [address] [facility] [address], [place], [place] Pat.Name:CHRIS ANDINO Pat.ID:[id number] .Date: 01/09/2019Refer.MD:ZENY NDIAYE MD Exam Time: 8:15:00 AMStudy Type:LE Arterial DOBAge:1955,63YSex: MALE Sonogrphr: Molly Morrell RN, RVT CPT - 4: 23628 Echo Event ID:[id number] Order ID:[id number] Reason for Study:Hard "knot" to right groin noted by pt's lead radiation therapist. Patient denies pain or being aware of [...] assessed. DOPPLER FINDINGS: ARTERYLOCATIONPSV (cm/sec) RIGHTExternal Iliac Distal-[id number] Common Femoral Proximal-third 181 Mid- Profunda Femoris Proximal-third Superficial Femoral Proximal-third 93 Proximal-third 211 Proximal-third 218 Mid- Pseudoaneurysmneck [id number] Nuhfht762 intra-pseudoaneurysm 288 VEINSLOCATION Common Femoral Proximal-third Patent [...] LABORATORY Lower Extremity Arterial Duplex Report [address] [place] [address], [place] [id number] Pat.Name: CHRIS ANDINO [facility].ID: [id number] .Date: 01/09/2019 Refer.MD: ZENY NDIAYE MD Exam Time: 8:15:00 AM Study Type:LE Arterial Age: 9 1955,63Y Sex: MALE Sonogrphr: Molly Morrell RN, RVT CPT - 4: 07562 Echo Event ID:[id number] Order ID: [id number] Reason for Study:Hard "knot" to right groin noted by pt's lead radiation therapist. Patient denies pain or being aware of [...] Tato Neville MD, RPVI Performing Organization Address City/State/[facility] Centercode Phone Number [facility] [address] [place] [address] after 03/26/2018 [phone] (Work) Advance Directives For more information, please contact: [phone] Type Date Recorded Patient On Call Pharmacy Technician Explanation Advance Directives, Living Will and Medical Power of Power Bender Operator Code Status Date Activated Date Inactivated Comments Full Code 03/30/2016 7:02 PM 04/08/2016 3:56 PM Code Status decision reached by: Patient Full Code 01/14/2016 10:31 PM 01/20/2016 11:47 PM Code Status decision reached by: Patient
--- OUTSIDE RECORDS SUMMARY | 2019-03-27 21:47 | XMS REPORT | Continuity of Care Document ---
:1955 Author Organization [employer] Care Team Providers Name Role Phone [employer] Unavailable Unavailable Problems Problem Status Onset Classification Date Comments Source Date Reported LABH Active 12/13/[address] Center LAB Active 03/14/[address] CCL/LHC W/ Active 12/01/19 [facility] POSS/BILATERAL [address] [place] [address] LOWER EXTREMIT Center ABN STRESS TEST, Active 12/01/19 [facility] CLAUDICATION [address] [place] [address] ESRD Active 10/20/[address] Center BDDC/ Active 09/21/[address] Center COLONOSCOPY Active 08/31/19 [facility] SCREENING Medical Center UPDATE VISIT Active 06/22/20 [place] [address] Medical Center CLAUDICATION Active 08/15/19 [place] [address] Medical Center FOLLOW UP Active 08/14/[address] Center RENAL PRE OPEN Active 07/29/20 [facility] ACCT 15 Medical Center CARDIAC CLEARNCE/ Active 06/26/20 [facility] PRE KIDNEY 15 Medical TRANSPLANT Center PA KIDNEY ACCT Active 04/29/20 [facility] FOR FC NOTES 15 Medical ONLYE Center T-SPOT Active 07/16/20 [place] [address] Medical Center ESRDINCLUDE Active 06/26/20 [facility] ILIACS 14 Medical Center ESRD/ PRE Active 11/20/19 [facility] TRANSPLANT WORK 14 Medical UP/ INCLUDE E Center Discharge 11/14/19 11/15/2013 [facility] Diagnosis: 14 Medical Hypertension Center HIGH BLOOD Active 11/14/19 [facility] PRESSURE 14 Medical Center UPDATE Active 10/02/19 [place] [address] Medical Center BDDC-RECTAL Active 12/22/19 [facility] CANCER SCREENING 13 Medical Center KIDNEY TX/CARDIAC Active 12/01/19 [facility] CLEARENCE PER 13 Medical JESS GR Center COLONSCOPY Active 12/01/19 [facility] CLEARANCE 13 Medical Center RENAL/DONOT USE Active 11/15/19 [facility] THIS ACCT FOR 13 Medical CHARGES F/ Center PRE TRANSPLANT Active 10/19/19 [facility] EVAL 13 Medical Center Pulmonary Active 09/23/20 Problem 12/06/2016 [facility] hypertension 12 Medical Center, OPIAbby Mobley Diabetes Resolved Problem 01/31/2013 [facility] Hypertension Resolved Problem 01/31/2013 [facility] renal failure Resolved Problem 08/16/2014 [facility] DM II [Diabetes Active Problem 08/30/2015 [facility] mellitus type II] [facility] Center Essential Active Problem 08/16/2014 [facility] Kidney transplant Active Problem 12/06/2016 [facility] evaluation [facility], LISA [place] Coronary artery Active Problem 12/06/2016 [facility], OPIAbby Mobley End-stage renal Active Problem 12/06/2016 [facility] (Confirmed) Center, OPID [place] Essential Active Problem 08/30/2015 [facility] Center History and Active Problem 12/06/2016 [facility] physical Medical examination, Center, annual for health LISA maintenance Itz Obesity Active Problem 12/06/2016 [facility], LISA [place] Polyp of colon, Active Problem 12/06/2016 [facility], LISA [place] DM II [Diabetes Active Problem 12/06/2016 [facility] mellitus type II] Medical Center, OPID [place] Essential Active Problem 12/06/2016 [facility] [place], OPIAbby Mobley SCREEN MAL Active [facility] NEOP-RECTUM [facility] RENAL FAILURE NOS Active [facility] PRE-PROCEDURE LAB Active [facility] MEDICAL SERVICES Active [facility] NOT AVAILABLE IN Medical HOME Center PERIPHERAL Active [facility] VASCULAR DISEASE, Medical UNSPECIFIED Center ENCNTR FOR Active [facility] GENERAL ADULT Medical MEDICAL EXAM W/ Center ENCOUNTER FOR Active [facility] PREPROCEDURAL Medical LABORATORY E Center Medications Medication Details Route Status Patient Ordering Order Source Instructions Provider Date Aspirin Enteric 81 mg=1 Active [facility] Coated 81 mg oral tab, PO, 017 Medical delayed release Daily, 0 Center tablet Refill(s) Famotidine 40 mg, PO, Active [facility] BID, # 60 017 Medical tab, 0 Center Refill(s) famotidine 20 0 Refill(s) Inactive [facility] mg/5 mL-NaCl 0.9% 017 Medical intravenous Center solution GoLYTELY oral See Active [facility] powder for Instruction 017 Medical reconstitution s, Take as Center directed by physician., # 1 ea, 0 Refill(s), Pharmacy: [facility] [id number] valsartan 320 mg 320 mg=1 Active [facility] oral tablet tab, PO, 017 Medical Daily, # 30 Center tab, 0 Refill(s) non-formulary 1 dose, Active [facility] Daily, 017 Medical ecotrin, Center Refill(s) 0 24 HR Nifedipine 60 mg=1 Active [place] 60 MG Extended tab, PO, 017 Medical Release Tablet Daily, # 30 Center tab, 0 Refill(s) NPH Insulin, See Special Active [facility] Human 100 UNT/ML Instruction 017 Medical Injectable s, SUB-Q, Center Suspension BID, Inject [Novolin N] 12 units at 9am and inject 8 units at 9pm, vial, 0 Refill(s) minoxidil 2.5 mg 5 mg=2 tab, Active [facility] oral tablet PO, BID, 0 017 Medical Refill(s) Center Famotidine 20 MG 20 mg=1 Active [facility] Oral Tablet tab, PO, 017 Medical BID, 0 Center Refill(s) labetalol 200 mg 3 tabs, PO, Active [facility] oral tablet BID, 0 017 Medical Refill(s) Center 24 HR Nifedipine 60 mg=1 Active [facility] 60 MG Extended tab, PO, 017 Medical Release Tablet BID, 0 Center Refill(s) clopidogrel 75 MG 75 mg=1 Active [facility] Oral Tablet tab, PO, 017 Medical [Plavix] Daily, 0 Center Refill(s) tramadol See Active [facility] hydrochloride 50 Instruction 016 Medical MG Oral Tablet s, 1 tab in Center am and 1 tab in pm, 0 Refill(s) NPH Insulin, See Active [facility] Human 100 UNT/ML Instruction 016 Medical Injectable s, takes 15 Center Suspension units in AM [Humulin N] and 10units in PM, 0 Refill(s) amLODIPine 10 mg 10 mg=1 Active [facility] oral tablet tab, PO, 016 Medical Daily, 0 Center Refill(s) lovastatin 20 mg 20 mg=1 Active [facility] oral tablet tab, PO, 016 Medical Daily, 0 Center Refill(s) Hydralazine 100 mg=1 Active [facility] Hydrochloride 100 tab, PO, 016 Medical MG Oral Tablet TID, 0 Center Refill(s) valsartan 320 MG 320 mg=1 Active [facility] Oral Tablet tab, PO, 016 Medical [Diovan] Daily, 0 Center Refill(s) labetalol 200 mg See Active [facility] oral tablet Instruction 015 Medical s, 3 tab PO Center bid, 0 Refill(s) gabapentin 300 MG 300 mg=1 Active [place] Oral Capsule cap, PO, 015 Medical Daily, # 90 Center cap, 0 Refill(s) valsartan 320 mg 320 mg=1 Active [facility] oral tablet tab, PO, 015 Medical Daily, # 30 Center tab, 0 Refill(s) calcium acetate 1,334 mg=2 Active [place] 667 MG Oral cap, PO, 015 Medical Capsule [Phoslo] TID, with Center meals and 2 tabs po with snacks, 0 Refill(s) omeprazole 20 mg 20 mg=1 Active [facility] oral delayed cap, PO, 014 Medical release capsule Daily, # 30 Center cap, 1 Refill(s) labetalol 200 mg 200 mg=1 Active [facility] oral tablet tab, PO, 014 Medical BID, # 60 Center tab, 1 Refill(s) Labetalol 200 mg, 1 Inactive [facility] tab, Route: 014 Medical PO, Drug Center form: TAB, ONCE, Dosing Weight 86.818, kg, Start date: 11/13/13 16:23:00, Stop date: 11/13/13 16:23:00Not es: With food. (Same as:Trandate , Normodyne) Hydralazine 1 tab, Inactive [place] Hydrochloride 100 Route: PO, 014 Medical MG Oral Tablet ONCE, Center Dosing Weight 86.818, kg, Start date: 11/13/13 16:23:00, Stop date: 11/13/13 16:23:00 Clonidine 1 tab, Inactive [facility] Hydrochloride 0.3 Route: PO, 014 Medical MG Oral Tablet ONCE, Center Dosing Weight 86.818, kg, Start date: 11/13/13 16:22:00, Stop date: 11/13/13 16:22:00 Allergies, Adverse Reactions, Alerts No Known Medication Allergies Immunizations No Data Provided for This Section Results Order Name Results Value Reference Date Interpretation Comments Source Range HEMATOLOGY POC 39.0 42.0 - 54.0 10/05 [facility] Hematocrit [facility] HEMATOLOGY POC 3.6 3.5 - 5.1 10/05 [facility] Potassium [facility] HEMATOLOGY POC Sodium 133 135 - 145 10/05 [facility] HEMATOLOGY POC 13.3 14.0 - 18.0 10/05 [facility] Hemoglobin [facility] HEMATOLOGY POC Glucose 122 70 - 99 10/05 [facility] REFERENCE HLA Misc See Report 1 08/31 Result [facility] LAB RESULTS Test (08/31/16 9:50 AM) Comment: [facility] results scanned in [employer]. Results displayed in [id number] EFERENCE LAB-Outside Lab Documents (Imaged) under date/time results were scanned. Report sent for scanning on 09/08/2016. REFERENCE Test Name [facility] 08/31 [facility] LAB RESULTS RESULTS [facility] REFERENCE HLA Misc See Report 1 06/26 Result [facility] LAB RESULTS Test (06/26/15 5:15 PM) Comment: [facility] results scanned in [facility]. Results displayed in [id number] EFERENCE LAB-Outside Lab Documents (Imaged) under date/time results were scanned. Report sent for scanning on 06/30/2015. REFERENCE Test Name [facility] 06/26 [facility] LAB RESULTS [facility] CHEM PANEL eGFR 6 11/13 <sup>1</sup>R esult Medical Comment: The Center eGFR is calculated using the CKD-EPI formula. In most young, healthy individuals the eGFR will be >90 mL/min/1.73m2 . The eGFR declines with age. An eGFR of 60-89 may be normal in some populations, particularly the elderly, for whom the CKD-EPI formula has not been extensively validated. Use of the eGFR is not recommended in the following populations:& lt;br/>
I ndividuals with unstable creatinine concentration s, including patients and those with serious co-morbid conditions.<b r/>
Patie nts with extremes in muscle mass or diet.

The data above are obtained from the National Kidney Disease Education Program (NKDEP) which additionally recommends that when the eGFR is used in patients with extremes of body mass index for purposes of drug dosing, the eGFR should be multiplied by the estimated BMI. CHEM PANEL AGAP 17.3 10.0 - 20.0 11/13 [facility] CHEM PANEL Calcium Lvl 8.7 8.5 - 10.5 11/13 [facility] CHEM PANEL CO2 26 24 - 32 11/13 [facility] CHEM PANEL Chloride Lvl 103 95 - 109 11/13 [facility] CHEM PANEL Sodium Lvl 142 135 - 145 11/13 [facility] CHEM PANEL Potassium 4.3 3.5 - 5.1 11/13 [facility] CHEM PANEL Glucose Lvl 162 70 - 99 11/13 <sup>2</sup>I nterpretive Medical Data: Adult Center reference range values reflect the clinical guidelines
of the [place] [employer]. CHEM PANEL Creatinine 8.9 0.5 - 1.4 11/13 [facility] CHEM PANEL BUN 51 7 - 22 11/13 [facility] CHEMISTRY POC 5.4 3.5 - 5.1 01/25 HI [facility] Potassium /2012 [facility] BEDSIDE Comment1 Notify 01/25 NA [facility] GLUCOSE RN/MD /2012 [facility] TESTING [place] BEDSIDE Gluc POC 193 70 - 99 01/25 HI <sup>1</sup>I [facility] GLUCOSE [place] /2012 nterpretive Medical TESTING Data: Center Upper Reportable Limit: 200 mg/dL. Pathology Reports No Data Provided for This Section Diagnostic Reports Report Value Date Source Chest wo contrast CT EXAM: CT CHEST WITHOUT CONTRAST 11/04/2016 [facility] Medical DATE: 11/04/2016 Center INDICATION: ESRD; PRE-TRANSPLANT WORK-UP TECHNIQUE: Volumetric CT [...] anterior descending and left circumflex coronary arteries. Abdomen/Pelvis wo IV EXAM: CT ABDOMEN AND PELVIS WITHOUT CONTRAST [address] DATE: 09/21/2016 1:19 PM DRAPERY HAND INDICATION: Z01.818 Encounter for other preprocedural examination. [...] 5. No bowel obstruction. Moderate stool burden. HVI VAS Arterial Upper or Reason for exam: Peripheral arterial disease 2015 [facility] IMPRESSION: 1. On the right the ankle/brachial index is 0.94. 2. On the left the ankle/brachial index is nonobtainable. COMMENT: Bilateral lower extremities segmental pressures with velocity waveform analysis was performed. On the right, primarily triphasic waveforms are noted in the posterior tibial , and dorsalis pedis artery. The right toe brachial index is 0.69. On the left, primarily triphasic waveforms are noted in the posterior tibial , and dorsalis pedis artery. The left toe brachial index is 0.68. Retroperitoneal Complete EXAM: RENAL ULTRASOUND. 07/29/2015 [facility] DATE: 07/29/2015 at 1449 hours. INDICATION: End-stage renal disease, pretransplant workup. COMPARISON: [...] without masses or acute abnormality. Chest wo contrast CT CT CHEST WITHOUT CONTRAST 2015-07-29 10:57:00 2014 [facility] COMPARISON: Chest x-ray from 10/16/2013 CLINICAL INDICATION: pre transplant workup TECHNIQUE: The [...] calcified granulomas. 3. Three-vessel coronary artery calcifications. Abdomen/Pelvis wo IV INDICATION: Abdominal pain. Chronic renal insufficiency. 07/16/2014 [facility] CT Center PROCEDURE: CT of the abdomen and pelvis was acquired with a multidetector scanner. No I.V. or enteric contrast was present for the exam. Axial, sagittal and coronal images were evaluated.. FINDINGS: The liver is slightly prominent in [...] aorta and some mid sized arteries. Abdomen complete US EXAM: US ABDOMEN COMPLETE 12/04/2013 [facility] DATE: 12/04/2013 at 1138. INDICATION: Pretransplant workup. ADDITIONAL INFORMATION: End-stage renal [...] echogenic kidneys compatible with medical renal disease. Chest 2 views EXAM: XR CHEST 2 VIEWS 10/16/2013 [facility] DATE: 10/16/2013 at 1249 hours INDICATION: ESRD; PRE-TRANSPLANT WORK-UP COMPARISON: 11/14/2012 at 0916 hours TECHNIQUE: Frontal and lateral chest radiographs DISCUSSION: There has been interval removal of the right-sided internal jugular dialysis catheter. The cardiomediastinal silhouette is normal. The costophrenic angles are sharp no pneumothorax identifie d. The lungs are clear. The bones and soft tissues are unremarkable. IMPRESSION: Normal chest radiograph. Consultation Notes No Data Provided for This Section Discharge Summaries No Data Provided for This Section History and Physicals No Data Provided for This Section Vital Signs Vital Sign Value Date Comments Source Temperature Oral (F) 97.4 F 11/04/2016 [facility] BMI Calculated 30.97 11/04/2016 [facility] Weight 92.386 11/04/2016 [facility] Height 172.72 cm 11/04/2016 [facility] Respitory Rate 20 11/04/2016 [facility] Heart Rate 64 11/04/2016 [facility] Systolic (mm Hg) 146 11/04/2016 [facility] Diastolic (mm Hg) 66 11/04/2016 [facility] Height 172.72 cm 11/04/2016 [facility] BMI Calculated 31.24 11/04/2016 [facility] Weight 93.182 11/04/2016 [facility] Heart Rate 65 09/21/2016 [facility] Systolic (mm Hg) 179 09/21/2016 [facility] Diastolic (mm Hg) 73 09/21/2016 [facility] Height 172.72 cm 09/21/2016 [facility] Weight 93.182 09/21/2016 [facility] BMI Calculated 31.24 09/21/2016 [facility] Respitory Rate 18 08/31/2016 [facility] Heart Rate 66 08/31/2016 [facility] Weight 92.9 08/31/2016 [facility] Height 173 cm 08/31/2016 [facility] Systolic (mm Hg) 95 08/31/2016 [facility] Diastolic (mm Hg) 58 08/31/2016 [facility] BMI Calculated 31.04 08/31/2016 [facility] Height 172.72 cm 08/21/2015 [facility] BMI Calculated 31.39 08/21/2015 [facility] Weight 93.636 08/21/2015 [facility] Weight 93.892 08/14/2015 [facility] BMI Calculated 31.47 08/14/2015 [facility] Height 172.72 cm 08/14/2015 [facility] Temperature Oral (F) 97.2 F 08/14/2015 [facility] Respitory Rate 18 08/14/2015 [facility] Heart Rate 74 08/14/2015 [facility] Weight 95 07/29/2015 [facility] BMI Calculated 31.84 07/29/2015 [facility] Height 172.72 cm 07/29/2015 [facility] Weight 96.1 06/26/2015 [facility] BMI Calculated 31.38 06/26/2015 [facility] Systolic (mm Hg) 123 06/26/2015 [facility] Diastolic (mm Hg) 66 06/26/2015 [facility] Heart Rate 63 06/26/2015 [facility] Respitory Rate 19 06/26/2015 [facility] Height 175 cm 06/26/2015 [facility] Temperature Oral (F) 98.1 F 11/13/2013 [facility] Systolic (mm Hg) 150 11/13/2013 [facility] Diastolic (mm Hg) 69 11/13/2013 [facility] Respitory Rate 15 11/13/2013 [facility] Systolic (mm Hg) 186 11/13/2013 [facility] Diastolic (mm Hg) 83 11/13/2013 [facility] Respitory Rate 12 11/13/2013 [facility] BMI Calculated 29.1 11/13/2013 [facility] Weight 86.818 11/13/2013 [facility] Height 172.72 cm 11/13/2013 [facility] Temperature Oral (F) 97.9 F 11/13/2013 [facility] Systolic (mm Hg) 194 11/13/2013 [facility] Respitory Rate 16 11/13/2013 [facility] Heart Rate 77 11/13/2013 [facility] Diastolic (mm Hg) 80 11/13/2013 [facility] BMI Calculated 29.71 10/16/2013 [facility] Weight 87.9 10/16/2013 [facility] Respitory Rate 20 10/16/2013 [facility] Systolic (mm Hg) 99 10/16/2013 [facility] Heart Rate 73 10/16/2013 [facility] Diastolic (mm Hg) 53 10/16/2013 [facility] Temperature Oral (F) 97.0 F 10/16/2013 [facility] Height 172 cm 10/16/2013 [facility] Encounters Location Location Encounter Encounter Reason Attending ADM DC Status Source Details Type Number For Provider Date Date Visit [facility] TB [id number] PRE MAGO 11/14 Active [facility] 0 TRANSPLA ADROGUE [facility] NT EVAL Center [facility] Outpatient [id number] KIDNEY OWEN 12/12 12/12 Active [facility] Medical 0 [place]/CARDI LOYALKA /2012 [facility] AC Center CLEARENC E PER JESS GRAVES [facility] DEMETRIUS [id number] BDDC-REC ATILLA 01/25 01/29 Active [facility] 3 FARHAD ERTAN /2012 [facility] CANCER Center SCREENIN G [facility] Outpatient [id number] LAB NORMA DESHPANDE 02/05 02/05 Active [facility] Medical [facility] Outpatient [id number] LAB NORMA DESHPANDE 03/14 03/14 Active [facility] Medical [facility] Outpatient [id number] LAB NORMA DESHPANDE 05/09 Active [facility] Outpatient [id number] LAB NORMA DESHPANDE 06/13 Active [facility] Outpatient [id number] LAB NORMA DESHPANDE 07/11 Active [facility] Outpatient [id number] LAB NORMA DESHPANDE 08/08 Active [facility] OP [id number] Mago 10/16 11/15 [place] Transplant 1 Adrogue /2013 [facility] EC [id number] Farzana 11/13 11/13 [place] [facility] Emergency 5 Brian /2013 [facility] OP [id number] Mago 12/04 01/03 [place] Transplant 2 Adrogue /2013 [facility] OP [id number] Mago 07/16 08/15 [place] [facility] Recurring 3 Adrogue /2013 [facility] OP [id number] Mago 07/16 08/15 [place] [facility] Transplant 4 Adrogue /2013 [facility] OP [id number] Non 06/26 07/26 [place] [facility] Transplant 5 Physician /2014 Medical [facility] Ctr [facility] OP [id number] Tequila 07/29 08/28 [place] [facility] Transplant 6 [facility] Pre [facility] Outpatient [id number] Yuriy 08/14 08/15 [place] [facility] 8 [place] [facility] Advanced Heart Failure [facility]patient [id number] Yuriy 08/21 08/22 [place] 1 [place] /2015 [facility] OP [id number] Elda 08/31 09/30 [place] Transplant 7 [facility] Ctr Pre [facility] Outpt Diag [id number] Tequila 09/21 09/22 [facility] Outpatient Services 0 [facility] [place] [facility] Outpatient [id number] Stiven Chema 09/21 09/22 [place] [facility] Bedded [id number] Stiven Chema 10/05 10/05 [place] [facility] Outpatient [facility] Recurring [id number] Tequila 11/04 12/04 [place] 8 [facility] Advanced Heart Failure [facility] Outpatient [id number] COLONSCO NORMA DESHPANDE Active [address] [facility] [place] Preadmit [id number] RENAL/DO NORMA DESHPANDE Active [place] [id number] NOT USE [facility] THIS Center ACCT FOR CHARGES F/C NOTES ONLY Procedures Procedure Code Date Perfomer Comments Source Colonoscopy<sup>1</fraire [id number] 01/25/2013 Repeat in 3 [facility], LISA Mobley Cardiac [id number] 01/16/2013 [facility] catheterization [facility], [facility] Hemodialysis [id number] 05/04/2012 [facility], LISA [place] Creation of [id number] [facility] arteriovenous shunt Medical or fistula for [place], dialysis by external OPID It[place] cannula Chronic peritoneal [id number] [facility] dialysis [facility], [facility] [place] Assessment and Plan No Data Provided for This Section Plan of Care No Data Provided for This Section Social History Social History Date Source Social History TypeResponse 09/21/2016 [facility] Alcohol Past Smoking Status Former smoker; Type: Cigarettes; Concerns about tobacco use in household: No; Exposure to Tobacco Smoke None; Cigarette Smoking Last 365 Days No; Reg Smoking Cessation Counseling No1 1Stopped more than 40 years ago Social History TypeResponse 09/21/2016 [facility] Alcohol Past Smoking Status Never smoker; Exposure to Tobacco Smoke None; Cigarette Smoking Last 365 Days No; Reg Smoking Cessation Counseling No Family History No Data Provided for This Section Advance Directives No Data Provided for This Section Functional Status No Data Provided for This Section
--- OUTSIDE RECORDS SUMMARY | 2019-03-27 21:47 | XMS REPORT | CCD ---
:1955 Author Organization [facility] Care Team Providers Name Role Phone Antwan [...]
--- OUTSIDE RECORDS SUMMARY | 2019-03-27 21:48 | XMS REPORT ---
:1955 [facility] [address] [place] [address] Care Team Providers Name Role Phone Unavailable Unavailable Unavailable Problems This patient has no known problems. Allergies, Adverse Reactions, Alerts This patient has no known allergies or adverse reactions. Medications This patient has no known medications.
[2019-03-27 22:53] LABS: Absolute Lymphocytes (CBC) 1.9 K/uL (0.7-4.9); Basophils % 0.4 % (0-1.3); Lymphocytes % 16.5 % (15.3-44.8); MPV 8.4 fL (7.6-11.3); RBC Red Blood Cell Count 1.15 M/uL (4.33-5.43)
[2019-03-27 23:20] LABS: Albumin 2.7 g/dL (3.4-5.0); Bilirubin Total 1.8 mg/dL (0.2-1.0); Potassium 4.3 mmol/L (3.5-5.1); Protein, Total 6.7 g/dL (6.4-8.2)
[2019-03-27 23:22] LABS: Hematocrit 12.8 % (39.6-49.0)
[2019-03-27 23:40] LABS: Anisocytosis 1+; Blood Morphology Comment NOTED (NOT SEEN); Macrocytosis 1+; Platelet Estimate ADEQ; Urine White Blood Cell Casts OK
[2019-03-27 23:41] LABS: Basophilic Stippling 1+; Polychromasia 1+
[2019-03-27] MEDS ORDERED: NA CHLORIDE 0.9% 250 ML ONE (23:51)
[2019-03-27] MEDS ORDERED: PANTOPRAZOLE 40 MG INJ ONE (23:51)
[2019-03-28 00:21] LABS: Protime INR 1.39
--- NOTE | 2019-03-28 00:40 | ER ---
Nurse's Notes [facility] Name: Chris Moreno Age: 64 yrs Sex: Male : 1955 Arrival Date: 03/27/2019 Time: 21:46 Bed 4 Private MD: Richard Lieberman R Diagnosis: Gastrointestinal hemorrhage, unspecified;Anemia, unspecified Presentation: 03/27 22:14 Presenting complaint: Patient states: generalized weakness, fatigue since Tuesday. pt ak1 has dialysis M/W/F. pt with tooth infection and taking amoxicillan and naproxen. pt with sx to right leg on 03/07/19. pt c/o swelling to right leg. pt with follow up appointment on 04/26/19. pt sees Dr. Abdullahi for ESRD and Dr. Barrios as his PCP. Transition of care: patient was not received from another setting of care. Onset of symptoms is unknown. Risk Assessment: Do you want to hurt yourself or someone else? Patient reports no desire to harm self or others. Initial Sepsis Screen: Does the patient meet any 2 criteria? No. Patient's initial sepsis screen is negative. Does the patient have a suspected source of infection? No. Patient's initial sepsis screen is negative. Care prior to arrival: None. 22:14 Method Of Arrival: Wheelchair ak1 22:14 Acuity: LEANDRO 3 ak1 Triage Assessment: 22:17 General: Appears in no apparent distress. Behavior is calm, cooperative. ak1 Historical: - Allergies: 22:17 No Known Allergies; ak1 - Home Meds: 22:17 gabapentin 100 mg oral cap 3 caps 3 times per day [Active]; ak1 - PMHx: 22:17 Diabetes - IDDM; Dialysis; Hyperlipidemia; Hypertension; ak1 - PSHx: 22:17 left foot; right leg sx 03/07/19; ak1 - Immunization history:: Adult Immunizations unknown. - Social history:: Smoking status: Patient/guardian denies using tobacco. - Ebola Screening: : No symptoms or risks identified at this time. Screenin:00 Abuse screen: Denies threats or abuse. Nutritional screening: No deficits noted. bb Tuberculosis screening: No symptoms or risk factors identified. Fall Risk None identified. Assessment: 22:00 General: Appears in no apparent distress. ill, Behavior is calm, cooperative. Pain: bb Complains of pain in right leg. Neuro: Level of Consciousness is awake, alert, obeys commands, Oriented to person, place, time, situation. Cardiovascular: Heart tones S1 S2 present Capillary refill < 3 seconds Patient's skin is warm and dry. Edema is 2+ to right ankle and right foot pitting to right ankle and right foot. Respiratory: Respiratory effort is even, unlabored, Respiratory pattern is regular, Breath sounds are clear bilaterally. GI: No signs and/or symptoms were reported involving the gastrointestinal system. Derm: Skin is dry, Skin temperature is warm. Musculoskeletal: Circulation, motion, and sensation intact. Reports swelling in right lower leg. 23:37 Reassessment: Sindhu Persaud WINCHER at bedside for discussion of findings and recommendations bb pt's HGB is low and he recommends a blood transfusion for a HGB of 4.1, HCT 12.8. Pt verbalized understanding of and agrees to plan of care. 03/28 00:16 Reassessment: Patient is alert, oriented x 3, equal unlabored respirations, skin bb warm/dry/pink. Sindhu Persaud WINCHER at bedside for discussion of need for admission pt verbalized understanding of and agrees to plan of care. 01:34 Reassessment: Patient is alert, oriented x 3, equal unlabored respirations, skin bb warm/dry/pink. pt resting quietly, IV sites intact, patent with no erythema or edema noted, spouse at bedside, lab notified of request for blood products. 01:58 Reassessment: US at bedside for r/o DVT in right lower extremity. Pt is A\T\O x 4, resp bb unlabored, IV sites intact, patent with blood and fluids infusing. Pt awaiting room assignment family at bedside. 02:53 Reassessment: Patient is alert, oriented x 3, equal unlabored respirations, skin bb warm/dry/pink. pt transported via stretcher on monitor with blood infusing by this RN hand off of care was given to Jayy RN blood flow sheet signed by her. IV sites intact, patent with fluids infusing. Vital Signs: 03/27 22:13 BP 123 / 39; Pulse 76; Resp 16; Temp 98.1; Pulse Ox 100% on R/A; Weight 82.55 kg (R); ak1 Height 5 ft. 8 in. (172.72 cm) (R); Pain 0/10; 23:38 BP 121 / 30; Pulse 57; Resp 18 S; Temp 98.3(O); Pulse Ox 100% on Nebulizer Mask; bb 03/28 01:22 BP 127 / 50; Pulse 55; Resp 16; Temp 97.9(O); Pulse Ox 100% on R/A; lp1 01:57 BP 128 / 57; Pulse 59; Resp 16 S; Temp 98.1(TE); Pulse Ox 100% on R/A; bb 03/27 22:13 Body Mass Index 27.67 (82.55 kg, 172.72 cm) ak1 ED Course: 03/27 21:46 Patient arrived in ED. cl3 21:46 Richard Lieberman MD is Private Physician. cl3 22:00 Patient has correct armband on for positive identification. Placed in gown. Bed in low bb position. Call light in reach. Side rails up X2. Adult w/ patient. environmental monitoring technician on. Pulse ox on. NIBP on. Warm blanket given. 22:10 Aren Persaud NP is PHCP. pm1 22:10 Real Lynne MD is Attending Physician. pm1 22:13 Arm band placed on Patient placed in an exam room, on a stretcher, on pulse oximetry, ak1 Patient notified of wait time. 22:16 Triage completed. ak1 22:46 Inserted saline lock: 20 gauge in right forearm, using aseptic technique. Blood ar5 collected. 23:22 Notified Nurse Practitioner and/or Physician Focuser of a critical lab result(s), Hgb lp1 4.1, Hct 12.8, Creatinine 6.38. 23:34 Stephanie Maurice, MEGHA is Primary Nurse. bb 23:45 T\T\S collected, blood band applied to patient. bb 03/28 00:18 Consent for blood and/or blood product transfusion signed by spouse. bb 00:28 Antonio Amador DO is Hospitalizing Provider. pm1 00:38 XRAY Chest (1 view) In Process Unspecified. EDMS 01:20 Inserted saline lock: 22 gauge in right hand, using aseptic technique. bb 01:33 Patient admitted, IV remains in place. bb 01:33 No provider procedures requiring assistance completed. bb Administered Medications: 00:15 Drug: ProTONIX 80 mg Route: IVP; Site: right forearm; bb 01:15 Follow up: Response: No adverse reaction bb 00:15 Drug: ProTONIX 8 mg/hr Route: IV; Rate: 25 ml/hr; Site: right forearm; bb 02:55 Follow up: IV Status: Infusion continued upon admission bb 01:32 Drug: Tylenol 650 mg Route: PO; bb 02:07 Follow up: Response: No adverse reaction bb 01:32 Drug: Benadryl 12.5 mg Route: IVP; Site: right forearm; bb 02:07 Follow up: Response: No adverse reaction bb Outcome: 00:16 Instructed on the need for admit. bb 00:28 Decision to Hospitalize by Provider. pm1 02:10 Admitted to Tele accompanied by nurse, family with patient, via stretcher, room 213, bb with chart, Report called to Jayy [place] 02:10 Condition: stable 02:55 Patient left the ED. bb Signatures: Dispatcher [employer] Stephanie Velasquez RN RN bb Aurea Muñoz, MEGHA RN lp1 Connie Lama RN RN ak1 Aren Persaud, WINCHER WINCHER pm1 Inna Martinez ar5 Rip Ventura cl3
--- NOTE | 2019-03-28 00:43 | EDPHYS ---
Physician Documentation [facility] Name: Chris Moreno Age: 64 yrs Sex: Male : 1955 Arrival Date: 03/27/2019 Time: 21:46 Bed 4 Private MD: Richard Lieberman R ED Physician Real Lynne HPI: 03/27 22:35 This 64 yrs old Male presents to ER via Wheelchair with complaints of pm1 Generalized weakness, Leg Swelling. Historical: - Allergies: 22:17 No Known Allergies; ak1 - Home Meds: 22:17 gabapentin 100 mg oral cap 3 caps 3 times per day [Active]; ak1 - PMHx: 22:17 Diabetes - IDDM; Dialysis; Hyperlipidemia; Hypertension; ak1 - PSHx: 22:17 left foot; right leg sx 03/07/19; ak1 - Immunization history:: Adult Immunizations unknown. - Social history:: Smoking status: Patient/guardian denies using tobacco. - Ebola Screening: : No symptoms or risks identified at this time. ROS: 22:36 Eyes: Negative for injury, pain, redness, and discharge, ENT: Negative for injury, pm1 pain, and discharge, Neck: Negative for injury, pain, and swelling, Respiratory: Negative for shortness of breath, cough, wheezing, and pleuritic chest pain, Abdomen/GI: Negative for abdominal pain, nausea, vomiting, diarrhea, and constipation, Back: Negative for injury and pain. 22:36 MS/Extremity: Negative for injury and deformity, Skin: Negative for injury, rash, and discoloration, Neuro: Negative for headache, weakness, numbness, tingling, and seizure. 22:36 Constitutional: Positive for malaise, Negative for body aches, fever. 22:36 Cardiovascular: Positive for swelling right leg, Negative for chest pain, palpitations. 23:30 Abdomen/GI: Positive for black/tarry stool. pm1 Exam: 22:36 Head/Face: Normocephalic, atraumatic. Eyes: Pupils equal round and reactive to light, pm1 extra-ocular motions intact. Lids and lashes normal. Conjunctiva and sclera are non-icteric and not injected. Cornea within normal limits. Periorbital areas with no swelling, redness, or edema. ENT: Nares patent. No nasal discharge, no septal abnormalities noted. Tympanic membranes are normal and external auditory canals are clear. Oropharynx with no redness, swelling, or masses, exudates, or evidence of obstruction, uvula midline. Mucous membranes moist. Neck: Trachea midline, no thyromegaly or masses palpated, and no cervical lymphadenopathy. Supple, full range of motion without nuchal rigidity, or vertebral point tenderness. No Meningismus. Chest/axilla: Normal chest wall appearance and motion. Nontender with no deformity. No lesions are appreciated. Cardiovascular: Regular rate and rhythm with a normal S1 and S2. No gallops, murmurs, or rubs. Normal PMI, no JVD. No pulse deficits. Respiratory: Lungs have equal breath sounds bilaterally, clear to auscultation and percussion. No rales, rhonchi or wheezes noted. No increased work of breathing, no retractions or nasal flaring. Abdomen/GI: Soft, non-tender, with normal bowel sounds. No distension or tympany. No guarding or rebound. No evidence of tenderness throughout. Back: No spinal tenderness. No costovertebral tenderness. Full range of motion. 22:36 Skin: Warm, dry with normal turgor. Normal color with no rashes, no lesions, and no evidence of cellulitis. 22:36 Constitutional: The patient appears in no acute distress, alert, awake, non-toxic, well developed, well hydrated, well groomed, well nourished. 22:36 Musculoskeletal/extremity: Extremities: grossly normal except: DVT Exam: no pain, no tenderness, no appreciated bluish discoloration, no erythema, no increased warmth, swelling, of the right leg. 22:36 Neuro: Orientation: is normal, to person, place, time, situation, Mentation: is normal, Motor: moves all fours, Sensation: is normal, no obvious gross deficits. 23:36 Abdomen/GI: Rectal exam: rectal tone normal, Stool: guaiac positive, black, mass, is pm1 not appreciated, tenderness, is not appreciated. Vital Signs: 22:13 BP 123 / 39; Pulse 76; Resp 16; Temp 98.1; Pulse Ox 100% on R/A; Weight 82.55 kg (R); ak1 Height 5 ft. 8 in. (172.72 cm) (R); Pain 0/10; 23:38 BP 121 / 30; Pulse 57; Resp 18 S; Temp 98.3(O); Pulse Ox 100% on Nebulizer Mask; bb 03/28 01:22 BP 127 / 50; Pulse 55; Resp 16; Temp 97.9(O); Pulse Ox 100% on R/A; lp1 01:57 BP 128 / 57; Pulse 59; Resp 16 S; Temp 98.1(TE); Pulse Ox 100% on R/A; bb 03/27 22:13 Body Mass Index 27.67 (82.55 kg, 172.72 cm) ak1 MDM: 03/27 22:11 Patient medically screened. [facility] 03/28 00:06 Physician consultation: Cody Burch MD was called at 23:46, was contacted at 00:06, pm1 regarding consult, patient's condition, and will see patient tomorrow, Transfuse 1 unit of PRBC now and have 2 units of PRBC ready for transfusion tomorrow with dialysis . 00:16 Data reviewed: vital signs. Data interpreted: Pulse oximetry: on room air is 100 %. pm1 Interpretation: normal. Counseling: I had a detailed discussion with the patient and/or guardian regarding: the historical points, exam findings, and any diagnostic results supporting the discharge/admit diagnosis, lab results, radiology results, the need for further work-up and treatment in the hospital. 00:19 Physician consultation: Shan Mai MD was called at 00:19, was contacted at 00:19, pm1 regarding consult, patient's condition, and will see patient tomorrow. 00:40 Physician consultation: Hosptialbrandon Abrams was called at 00:41, was contacted at 00:41, pm1 regarding admission, patient's condition, and will see patient in ED, shortly. 03/27 22:20 Order name: CBC with Diff pm1 03/27 22:20 Order name: CMP; Complete Time: 23:25 pm1 03/27 22:21 Order name: CBC with Automated Diff; Complete Time: 23:54 EDMS 03/27 23:26 Order name: Type And Screen pm1 03/27 23:40 Order name: Troponin (emerg Dept Use Only); Complete Time: 00:15 pm1 03/27 23:40 Order name: PT-INR pm1 03/27 22:20 Order name: Extremity Venous Uni Ltd US pm1 03/27 23:40 Order name: XRAY Chest (1 view) pm1 03/27 23:42 Order name: CBC Smear Scan; Complete Time: 23:54 EDMS 03/28 00:39 Order name: Packed RBC Leukored EDMS 03/27 22:20 Order name: IV Saline Lock; Complete Time: 22:49 pm1 03/27 23:40 Order name: Transfuse; Complete Time: 02:04 pm1 03/27 23:40 Order name: EKG; Complete Time: 23:42 pm1 03/28 01:45 Order name: CONS Pharmacy Consult EDMS 03/28 01:45 Order name: NPO EDMS 03/28 01:45 Order name: EKG Electrocardiogram EDMS 03/28 01:46 Order name: EKG Electrocardiogram EDMS 03/28 01:46 Order name: EKG Electrocardiogram EDMS 03/28 01:46 Order name: EKG Electrocardiogram EDMS 03/28 01:46 Order name: EKG Electrocardiogram EDMS 03/28 01:46 Order name: EKG Electrocardiogram EDMS 03/28 01:46 Order name: EKG Electrocardiogram EDMS 03/28 01:46 Order name: EKG Electrocardiogram EDMS 03/28 01:47 Order name: EKG Electrocardiogram EDMS 03/28 01:47 Order name: EKG Electrocardiogram EDMS 03/28 01:47 Order name: EKG Electrocardiogram EDMS 03/27 23:40 Order name: Cardiac monitoring; Complete Time: 23:41 pm1 03/27 23:40 Order name: EKG - Nurse/Tech; Complete Time: 23:49 pm1 03/27 23:40 Order name: Labs collected and sent; Complete Time: 23:41 pm1 03/27 23:40 Order name: O2 Per Protocol; Complete Time: 23:41 pm1 03/27 23:40 Order name: O2 Sat Monitoring; Complete Time: 23:41 pm1 Administered Medications: 00:15 Drug: ProTONIX 80 mg Route: IVP; Site: right forearm; bb 01:15 Follow up: Response: No adverse reaction bb 00:15 Drug: ProTONIX 8 mg/hr Route: IV; Rate: 25 ml/hr; Site: right forearm; bb 02:55 Follow up: IV Status: Infusion continued upon admission bb 01:32 Drug: Tylenol 650 mg Route: PO; bb 02:07 Follow up: Response: No adverse reaction bb 01:32 Drug: Benadryl 12.5 mg Route: IVP; Site: right forearm; bb 02:07 Follow up: Response: No adverse reaction bb Disposition: 09:38 Co-signature as Attending Physician, Real LOUISE I agree with the assessment and nasir plan of care. Disposition: 03/28/19 00:28 Hospitalization ordered by Antonio Amador for Inpatient Admission. Preliminary diagnosis are Gastrointestinal hemorrhage, unspecified, Anemia, unspecified. - Bed requested for Telemetry/MedSurg (Inpatient). - Status is Inpatient Admission. bb - Condition is Stable. - Problem is new. - Symptoms have improved. UTI on Admission? No Signatures: Dispatcher [employer] EDRI Natalie Pal RN Real De Oliveira MD MD cha Ballard, Brenda RN RN Connie Hernandez RN RN ak1 Aren Persaud, SOLID WASTE DIVISION SUPERVISOR SOLID WASTE DIVISION SUPERVISOR pm1 Corrections: (The following items were deleted from the chart) 01:25 00:28 Hospitalization Ordered by Antonio Amador DO for Inpatient Admission. Preliminary diagnosis is Gastrointestinal hemorrhage, unspecified; Anemia, unspecified. Bed requested for Telemetry/MedSurg (Inpatient). Status is Inpatient Admission. Condition is Stable. Problem is new. Symptoms have improved. UTI on Admission? No. pm1 02:55 01:25 03/28/2019 00:28 Hospitalization Ordered by Antonio Amador DO for Inpatient bb Admission. Preliminary diagnosis is Gastrointestinal hemorrhage, unspecified; Anemia, unspecified. Bed requested for Telemetry/MedSurg (Inpatient). Status is Inpatient Admission. Condition is Stable. Problem is new. Symptoms have improved. UTI on Admission? No. mw
--- NOTE | 2019-03-28 01:11 | P.HP ---
Certification for Inpatient With expected LOS: >2 Midnights Patient will require the following post-hospital care: None Practitioner: I am a practitioner with admitting privileges, knowledge of patient current condition, hospital course, and medical plan of care. Services: Services provided to patient in accordance with Admission requirements found in Title 42 Section 412.3 of the Code of Federal Regulations Patient History Date of Service: 03/28/19 Reason for admission: Generalized weakness History of Present Illness: 64-year-old man with a history of end-stage renal disease on hemodialysis, peripheral vascular disease on aspirin and Plavix presented to the emergency department with complaint of generalized weakness. Patient is reported to have fallen once at home due to weakness. He reports dark stools which has been present for about 2 days. He also reports vomiting coffee-ground material yesterday. He denied any epigastric or abdominal pain. He denied any bright red blood per rectum. Patient underwent dialysis yesterday. In the ED, his hemoglobin was down to 4, troponin negative, fecal occult blood test is positive. Patient has severe symptomatic anemia secondary to GI bleed. He is admitted for further management. Allergies No Known Allergies Allergy (Verified 03/28/19 03:18) Home Medications: Amoxicillin 500 mg PO Q8HR 03/28/19 Aspirin [Adult Aspirin Regimen] 81 mg PO DAILY 03/28/19 Brimonidine Tartrate/Timolol [Combigan 0.2%-0.5% Eye Drops] 1 drop OP BID Clopidogrel Bisulfate [Plavix] 75 mg PO DAILY 03/28/19 Famotidine 40 mg PO DAILY 03/28/19 Gabapentin 100 mg PO TID 03/28/19 Labetalol HCl [Trandate] 600 mg PO BID 03/28/19 Latanoprost/Pf [Latanoprost 0.005% Eye Drop] 1 drop OP BEDTIME 03/28/19 Losartan Potassium 100 mg PO DAILY 03/28/19 Lovastatin 20 mg PO BEDTIME 03/28/19 Minoxidil 2.5 mg PO DAILY 03/28/19 Naproxen 500 mg PO Q12HR PRN 03/28/19 Nifedipine [Nifedipine ER] 60 mg PO DAILY 03/28/19 - Past Medical/Surgical History Diabetic: Yes -: diabetes -: ESRD -: HTN -: Vascular bypass surgery in the right lower extremity for PVD. - Family History Mother -: Kidney disease - Social History Smoking Status: Never smoker Alcohol use: No CD- Drugs: No Place of Residence: Home Review of Systems Other: General: No fever, no malaise, no unintentional weight loss. Eyes: No eye discharge, Respiratory: No cough, no shortness of breath. CVS: No chest pain, no palpitation, no lightheadedness. GI: No abdominal pain, no nausea no vomit, no constipation, no diarrhea. Genitourinary: No dysuria, no urinary frequency, no incontinence, no hematuria. Musculoskeletal: No joint pains, or joint swelling, no gait instability. Neurology: No headache, no asymmetric weakness, no problem with swallowing. Except as documented, all other systems reviewed and negative. Physical Examination - Physical Exam General: Alert, In no apparent distress, Oriented x3 HEENT: Atraumatic, Normocephalic, PERRLA, Mucous membr. moist/pink Neck: Supple, 2+ carotid pulse no bruit, JVD not distended, No Thyromegaly Respiratory: Clear to auscultation bilaterally, Normal air movement Cardiovascular: Normal pulses, Regular rate/rhythm, No murmurs, Edema (Right lower extremity) Capillary refill: <2 Seconds Gastrointestinal: Normal bowel sounds, Soft and benign, Non-distended, No tenderness, No masses Musculoskeletal: No clubbing, No erythema, No warmth Integumentary: Other (Small ulcer on the orr of the right lower extremity) Neurological: Normal strength at 5/5 x4 extr, Cranial nerves 3-12 intact, Normal affect Rectal: Deferred - Studies Laboratory Data (last 24 hrs) 03/28/19 00:05: PT 16.2 H, INR 1.39 03/27/19 22:46: Sodium 139, Potassium 4.3, BUN 136 H, Creatinine 6.38 H*, Glucose 173 H, Total Bilirubin 1.8 H, AST 35, ALT 31, Alkaline Phosphatase 412 H 03/27/19 22:46: WBC 11.7 H, Hgb 4.1 L*, Hct 12.8 L*, Plt Count 180 Assessment and Plan - Problems (Diagnosis) (1) Upper GI bleed Current Visit: Yes Status: Acute (2) Acute blood loss anemia Current Visit: Yes Status: Acute (3) End-stage renal disease on hemodialysis Current Visit: Yes Status: Chronic (4) Peripheral vascular disease Current Visit: Yes Status: Chronic (5) Diabetes Current Visit: No Status: Chronic Qualifiers: Diabetes mellitus type: type 2 - Plan Admit with tele Transfuse 1 unit PRBC for now per Nephrology recommendation. Patient would need additional PRBC transfusion but need to do this stepwise to avoid fluid overload Monitor H&H q.6 hrs IV proton. Discontinue aspirin and plavix. Keep NPO overnight. GI consult Nephrology consult for hemodialysis. Insulin sliding scale for glucose management. SCD for DVT prophylaxis Discharge Plan: Home - Advance Directives Does patient have a Living Will: No Does patient have a Durable POA for Healthcare: No - Code Status/Comfort Care Code Status Assessed: Yes Code Status: Full Code Time Spent Managing Pts Care (In Minutes): 67
[2019-03-28] MEDS ORDERED: NA CHLORIDE 0.9% 100 ML IV ONE (01:13)
[2019-03-28] MEDS ORDERED: ACETAMINOPHEN 325 MG TABLET ONE (01:24)
[2019-03-28] MEDS ORDERED: DIPHENHYDRAMINE 50 MG/ML VIAL ONE (01:24)
[2019-03-28] MEDS ORDERED: ONDANSETRON 4 MG/2 ML VIAL IV PRN (01:26)
[2019-03-28] MEDS ORDERED: PANTOPRAZOLE INJ 80 MG in NA CHLORIDE 0.9% 250 ML IV SCH (02:00)
[2019-03-28] MEDS ORDERED: NA CHLORIDE 0.9% 250 ML IV SCH ×2 (02:00)
[2019-03-28 03:06] VITALS: BMI 27.8
[2019-03-28] MEDS: INSULIN -REGULAR HUMAN 50 UNIT/0.5 ML ML SQ SCH ×3 (06:00→17:31)
[2019-03-28] MEDS ORDERED: INSULIN -REGULAR HUMAN 50 UNIT/0.5 ML ML SQ SCH (07:30)
--- NOTE | 2019-03-28 07:45 | EKG ---
Test Date: 2019-03-27 Test Time: 23:48:36 Automotive Glass Installer: JUAN JOSE MEASUREMENT RESULTS: Intervals: Rate: 61 PA: 150 QRSD: 102 QT: 428 QTc: 430 [place]: P: -48 PA: 150 QRS: 19 T: 260 INTERPRETIVE STATEMENTS: Sinus rhythm ST & T wave abnormality, consider inferior ischemia ST & T wave abnormality, consider anterolateral ischemia Abnormal ECG No previous ECG available for comparison Electronically Signed On 03-28-19 07:44:55 CDT by Chris Mcfadden
--- NOTE | 2019-03-28 08:01 | RAD REPORT ---
EXAM DESCRIPTION: US - Extremity Venous Uni Ltd - 03/28/2019 2:14 am CLINICAL HISTORY: Swelling;Pain Leg swelling and edema. COMPARISON: No comparisons FINDINGS: Right lower extremity venous system was interrogated with Doppler technique. Normal flow, compressibility and augmentation was noted. There is no DVT present.7 x 3 cm cystic structure is pres ent in the right groin. IMPRESSION: No evidence of right lower extremity deep venous thrombosis.
--- NOTE | 2019-03-28 08:17 | RAD REPORT ---
EXAM DESCRIPTION: RAD - Chest Single View - 03/28/2019 12:08 am CLINICAL HISTORY: GI bleed Chest pain. COMPARISON: No comparisons FINDINGS: Portable technique limits examination quality. The lungs are grossly clear. The heart is mildly enlarged in size. No displaced fractures. IMPRESSION: No acute intrathoracic process suspected.
[2019-03-28] MEDS ORDERED: NA CHLORIDE 0.9% 250 ML ONE (08:33)
[2019-03-28 08:46] LABS: Hematocrit 15.1 % (39.6-49.0)
[2019-03-28 09:25] LABS: Ferritin 3775.6 ng/mL (26-388)
[2019-03-28] MEDS: Brimonidine Tartrate/Timolol (Combigan) 0.2%-0.5% Eye Drops OP SCH ×2 (09:44→21:00)
[2019-03-28] MEDS: PANTOPRAZOLE INJ 80 MG in NA CHLORIDE 0.9% 250 ML IV SCH (11:07)
--- NOTE | 2019-03-28 11:34 | P.PN ---
Subjective Date of Service: 03/28/19 Primary Care Provider: Dr. Celestin; Nephrology-Dr. Burch; CV Surgery-Dr. Valentino Chief Complaint: Generalized weakness Subjective: Other (Patient still with some tiredness. Overall stable.) Physical Examination - Vital Signs Temperature: 97.9 F Blood Pressure: 123/56 Pulse: 62 Respirations: 18 Pulse Ox (%): 100 - Physical Exam General: Alert, In no apparent distress, Cooperative HEENT: Atraumatic Neck: Supple Respiratory: Clear to auscultation bilaterally, Normal air movement Cardiovascular: Normal pulses, Regular rate/rhythm Gastrointestinal: Normal bowel sounds, Soft and benign, Non-distended, No tenderness, No masses, No rebound, No guarding Musculoskeletal: No erythema, No tenderness, No warmth Integumentary: No erythema, No warmth, No cyanosis Neurological: Normal speech, Normal strength at 5/5 x4 extr, Normal tone, Normal affect - Studies Laboratory Data (last 24 hrs) 03/28/19 00:05: PT 16.2 H, INR 1.39 03/27/19 22:46: Sodium 139, Potassium 4.3, BUN 136 H, Creatinine 6.38 H*, Glucose 173 H, Total Bilirubin 1.8 H, AST 35, ALT 31, Alkaline Phosphatase 412 H 03/27/19 22:46: WBC 11.7 H, Hgb 4.1 L*, Hct 12.8 L*, Plt Count 180 Medications List Reviewed: Yes Assessment & Plan Discharge Plan: Home Plan to discharge in: 48 Hours Physician Review Additional Text: Impression: Melena secondary to severe symptomatic anemia related to upper GI bleed with prior use of nonsteroidal anti-inflammatories End-stage renal disease on hemodialysis Peripheral vascular disease with history of vascular bypass Hypertension Diabetes mellitus type 2 non insulin dependent Chronic pain with diabetic neuropathy GERD Hyperlipidemia Plan: Melena secondary to severe symptomatic anemia related to upper GI bleed with prior use of nonsteroidal anti-inflammatories: Patient stable this time. Patient has received 1 unit of blood. He will receive 2 more units with dialysis. Case discussed at length with nephrology and GI. Patient currently NPO. GI plans for upper endoscopy today to further evaluate and treat. Patient admits use of nonsteroidal anti-inflammatories recently. Patient with chronic anemia. Continue education on no further use of nonsteroidal anti- inflammatories. Anticipate discharge in the next 24-48 hr once clinically stable, hemoglobin stable. End-stage renal disease on hemodialysis: Case discussed with nephrology. Patient will have dialysis today. While in dialysis patient will receive 2 more units of packed red blood cells. Will continue and to monitor closely. Peripheral vascular disease with history of vascular bypass: Will hold aspirin and Plavix. Pending findings on EGD, will need to discuss with GI and cardiovascular surgery about medications at discharge. Hypertension: Blood pressure low at this time. Due to his anemia will hold blood pressure medication. Will review and restart medication once blood pressure stable. Diabetes mellitus type 2 non insulin dependent: Will monitor accuchecks and place on sliding scale. Check A1c. Chronic pain with diabetic neuropathy: Will review and restart medication. GERD: Will start PPI. Await EGD. Hyperlipidemia: Will review and restart medication. Time Spent Managing Pts Care (In Minutes): 55
[2019-03-28] MEDS ORDERED: TRAMADOL HCL 50 MG TAB PO PRN (12:48)
[2019-03-28] MEDS ORDERED: HYDROCODONE/APAP 7.5/325 MG TAB PO PRN (12:48)
[2019-03-28] MEDS ORDERED: NA CHLORIDE 0.9% 500 ML ONE (13:33)
[2019-03-28] MEDS ORDERED: PROPOFOL 200 MG/20 ML VIAL IV ONE (14:09)
[2019-03-28] MEDS ORDERED: LIDOCAINE 1% MPF 5 ML VIAL ONE (14:09)
[2019-03-28] MEDS ORDERED: ETOMIDATE 20 MG/10 ML VIAL IV ONE (14:10)
[2019-03-28] MEDS ORDERED: EPINEPHRINE 1 MG/ML VIAL SQ ONE (14:30)
[2019-03-28] MEDS ORDERED: EPINEPHRINE/PF 1 MG/ML AMP ONE (15:02)
--- NOTE | 2019-03-28 15:17 | CON ---
Date of Consultation: 03/28/2019 Reason For Consultation: Elevated BUN and creatinine, fluid management, end- stage renal disease. History Of Present Illness: This is a pleasant 64-year-old gentleman, well known to me from the dialysis with significant past medical history of end- stage renal disease, on hemodialysis, Tuesday, Tuesday, Tuesday at [facility], hypertension, hyperlipidemia, peripheral vascular disease, diabetes. Patient was in his regular state of health. Apparently came to the hospital complaining of black stool, weakness, tired, found to have significant anemia with hemoglobin down to the 4; for that reason, patient was admitted. Blood pressure was stable. Patient received 1 unit of transfusion yesterday and today under the second unit. Patient is on PPI and planned for EGD today. Past Medical History: 1. Diabetes complicated with neuropathy and nephropathy. 2. Hypertension. 3. Hyperlipidemia. 4. Peripheral vascular disease. 5. End-stage renal disease, on hemodialysis, Tuesday, Tuesday, Tuesday. Family History: Positive for kidney disease. Social History: Denies smoking, denies drinking, denies drugs abuse. Review of Systems: Head and Neck: No red eye. No ear pain. GI: Has black stool. : No polyuria, no dysuria, no hematuria. FISHER: Not applicable. Respiratory: No shortness of breath. Cardiovascular: No chest pain. Endocrine: No polydipsia. Skin: No rash. Neuro: Has neuropathy. Musculoskeletal: Has leg pain. Has weakness. Physical Examination: Vital Signs: When I saw the patient, blood pressure 112/78, pulse of 88. Chest: Clear to auscultation. Heart: S1, S2. Systolic murmur. Abdomen: Soft, nontender. Extremities: No edema on the left. Has +1 edema on the right. Laboratory Data: H and H 12/20.1. Sodium 139, potassium of 4.3, bicarb 25, BUN 136, creatinine 6.3, calcium 8.5. , B12 513. INR 1.3. Medications: Current medications the patient on include pantoprazole, insulin, atorvastatin. Assessment And Plan: 1. End-stage renal disease. We will continue the patient on dialysis, especially with having significant uremia. 2. Anemia of secondary to chronic kidney disease and gastrointestinal loss. We are going to start the patient on PPI. We will transfuse the patient. We will start MUKUND and we will transfuse 2-pack RBC with dialysis today and we will follow up. 3. Diabetes, as by primary. 4. Gastrointestinal bleed, as above. Follow up GI. EGD today. JASON Voice ID: [id number] Report ID: [id number]
[2019-03-28] MEDS ORDERED: MORPHINE 2 MG/ML SYR IV PRN (15:58)
[2019-03-28] MEDS: EPOETIN ALFA 10,000 UNIT/ML VIAL IV SCH (17:16)
[2019-03-28] MEDS ORDERED: HOME MED 1 EA UNK (Latanoprost/Pf [Latanoprost 0.005% Eye Drop] 1 DROP) OP SCH (21:00)
[2019-03-28] MEDS: JUVEN PACKET PO SCH (21:00)
[2019-03-28] MEDS: ATORVASTATIN 10 MG TAB PO SCH (21:00)
[2019-03-28] MEDS ORDERED: MORPHINE 4 MG/ML SYR IV PRN (21:01)
[2019-03-28 21:03] LABS: Hematocrit 27.7 % (39.6-49.0)
[2019-03-28] MEDS: HYDRALAZINE HCL 20 MG/ML VIAL IV PRN (21:40)
--- NOTE | 2019-03-29 00:32 | OP ---
Surgeon: Shan Mai MD Procedure To Be Performed: Esophagogastroduodenoscopy. Indication For Procedure: Melena, acute drop in hemoglobin, suspected upper GI bleed. Plan For Anesthesia: Monitored anesthesia care. Complexity: High due to probability of therapeutic intervention and patient's comorbidities. Technique: After obtaining informed consent from the patient and explaining risks and complications, which include, but are not limited to bleeding, infection, perforation, and anesthesia complication, patient was placed in a left lateral position and sedation was given. From then on, the scope was a dvanced to the mouth and carefully guided up to the second portion of the duodenum. There was no act vonda bleeding seen. The stigmata of recent bleeding were identified. After the completion of the pro cedure, the equipment and scope were withdrawn and procedure terminated in a safe manner. Findings: 1.Esophagus: No gross lesion seen in the upper and mid esophagus. In the distal esophagus, there w as evidence of LA grade C esophagitis with ulceration. Small biopsy was taken from the stomach. Mil [id number] patchy erythema seen in the body and antrum. Small biopsy was taken; however, 1 biopsy site did not stop bleeding even after waiting for 2-3 minutes. Therefore, this was injected with ep i and a clip was placed with good hemostasis. Likely underlying platelet dysfunction due to kidney d isease and the fact that patient is on Plavix as a contributing factor. 2.Duodenum: Several superficial ulcers were seen in the bulb. Biopsies were taken also. Similar t o the gastric biopsy, there was some oozing, which was stopped with epi injection and a single clip. The second part of the duodenum appeared normal. Complications: None. Tolerance To Anesthesia: Excellent. Postoperative Diagnosis: Esophageal and duodenal ulcers. Easy tendency to bleed with biopsy, which was treated. Plan: Continue current management. IV PPI. N.p.o. for now. We will start diet from tomorrow. Hol d Plavix for an additional few days. We will need to repeat EGD in 6-8 weeks to ensure healing. Fol low up biopsy results. US/MODL Voice ID: [id number] Report ID: [id number]
[2019-03-29] MEDS: PANTOPRAZOLE INJ 80 MG in NA CHLORIDE 0.9% 250 ML IV SCH ×3 (01:33→15:08)
[2019-03-29] MEDS: HYDRALAZINE HCL 20 MG/ML VIAL IV PRN (04:30)
[2019-03-29] MEDS: INSULIN -REGULAR HUMAN 50 UNIT/0.5 ML ML SQ SCH ×5 (06:00→21:16)
[2019-03-29 06:12] LABS: Albumin 2.8 g/dL (3.4-5.0); Phosphorus 3.5 mg/dL (2.5-4.9); Potassium 3.5 mmol/L (3.5-5.1)
[2019-03-29] MEDS: LOSARTAN POTASSIUM 50 MG TABLET PO SCH (08:12)
[2019-03-29] MEDS: MINOXIDIL 2.5 MG TAB PO SCH (08:12)
[2019-03-29] MEDS: NIFEDIPINE XL 60 MG TABLET PO SCH (08:12)
[2019-03-29] MEDS: Brimonidine Tartrate/Timolol (Combigan) 0.2%-0.5% Eye Drops OP SCH ×2 (08:13→21:15)
[2019-03-29] MEDS: GABAPENTIN 100 MG CAP PO SCH ×3 (08:59→21:14)
[2019-03-29] MEDS: LABETALOL HCL 100 MG TAB PO SCH ×2 (08:59→21:13)
[2019-03-29] MEDS: JUVEN PACKET PO SCH ×2 (08:59→21:00)
[2019-03-29] MEDS ORDERED: HOME MED 1 EA UNK (Losartan Potassium [Losartan Potassium] 100 MG) PO SCH (09:00)
[2019-03-29] MEDS ORDERED: HOME MED 1 EA UNK (Nifedipine [Nifedipine Er] 60 MG) PO SCH (09:00)
--- NOTE | 2019-03-29 12:26 | P.PN ---
Subjective Date of Service: 03/29/19 Primary Care Provider: Dr. Celestin; Nephrology-Dr. Burch; CV Surgery-Dr. Valentino Chief Complaint: Generalized weakness Subjective: Doing well, Other (Patient had slight confusion this morning when he woke up. When I evaluated him he was doing well. He recalls events yesterday.) Physical Examination - Vital Signs Temperature: 98.2 F Blood Pressure: 184/77 Pulse: 69 Respirations: 15 Pulse Ox (%): 99 - Physical Exam General: Alert, In no apparent distress, Oriented x3, Cooperative HEENT: Atraumatic Neck: Supple Respiratory: Clear to auscultation bilaterally, Normal air movement Cardiovascular: Normal pulses, Regular rate/rhythm Gastrointestinal: Normal bowel sounds, Soft and benign, Non-distended, No tenderness, No masses, No rebound, No guarding Neurological: Normal speech, Normal strength at 5/5 x4 extr, Normal tone, Normal affect - Studies Medications List Reviewed: Yes Assessment & Plan Discharge Plan: Home Plan to discharge in: 24 Hours Physician Review Additional Text: Impression: Melena secondary to severe symptomatic anemia related to upper GI bleed with prior use of nonsteroidal anti-inflammatories End-stage renal disease on hemodialysis Peripheral vascular disease with history of vascular bypass Hypertension Diabetes mellitus type 2 non insulin dependent Chronic pain with diabetic neuropathy GERD Hyperlipidemia Plan: Melena secondary to severe symptomatic anemia related to upper GI bleed with prior use of nonsteroidal anti-inflammatories status post EGD showing esophageal and duodenal ulcers with treatment of epinephrine and clipping with good hemostasis: Patient doing well this time. Patient received multiple transfusions yesterday. Hemoglobin now within normal range. Will. Patient had EGD showing esophageal and duodenal ulcers. Biopsy was taken. There was some mild oozing of blood from the biopsy site. This resolved after injection with epinephrine and clip placed. Will have physical therapy work with patient today. Will recheck hemoglobin later today. Will slowly advance diet. Will start with clear liquid and advanced to GI soft over the next 24 hr. Continue to educate on further use of nonsteroidal anti-inflammatories. Case discussed with GI at length yesterday. Patient will hold aspirin/Plavix for at least 5 days. Both medication can be restarted for his peripheral vascular disease after 5 days. Patient will need continue with Protonix daily. Will discuss with nephrology. Anticipate discharge within the next 24 hr if clinically stable. End-stage renal disease on hemodialysis: Patient received dialysis every Tuesday , Tuesday and Tuesday. Will discuss further with nephrology about plan of care. Possible discharge as early as today but within 24 hr with stability and tolerance of diet. Peripheral vascular disease with history of vascular bypass: GI recommends to hold aspirin/Plavix for at least 5 days. Both medication can then be restarted. Patient will need a follow up with CV surgery as an outpatient. Hypertension: Home medication restarted. Will continue to adjust medication.. Diabetes mellitus type 2 non insulin dependent: Will monitor accuchecks and place on sliding scale. Chronic pain with diabetic neuropathy: Continue medication. GERD: Continue as above. Hyperlipidemia: Continue medication. Time Spent Managing Pts Care (In Minutes): 55
[2019-03-29 12:46] LABS: Hematocrit 26.5 % (39.6-49.0)
--- NOTE | 2019-03-29 15:02 | PN ---
Date of Progress Note: 03/29/2019 Subjective: Patient was admitted with GI bleed, symptomatic anemia status post EGD, transfusion of t otal 3 units, tolerated well. Physical Examination: Vital Signs: When I saw the patient, blood pressure of 184/77, pulse of 69, afebrile. Chest: Clear to auscultation. Heart: S1, S2. Regular. Abdomen: Soft, nontender. Extremity: No edema. Laboratory Data: H and H 8.9/26.5. Sodium of 139, potassium 3.9, bicarb 24, BUN 77, creatinine 5.1, calcium 8.4. T-sat of 56. Current Medications: The patient on include Epogen, atorvastatin, labetalol, losartan, nifedipine, g abapentin, Zofran. Morphine, hydrocodone, tramadol. Assessment And Plan: 1.End-stage renal disease. I going to go ahead and arrange for dialysis tomorrow. 2.Hypertension, not controlled. We will go ahead and resume his minoxidil and we will follow up the patient. 3.Anemia secondary to chronic kidney disease/gastrointestinal bleed. Continue MUKUND and we will monit or H and H for tomorrow and we will follow up. Keep holding naproxen, aspirin and Plavix. The patie nt cleared from the renal standpoint for discharge planning hopefully if H and H stable tomorrow. JASON Voice ID: [id number] Report ID: [id number]
[2019-03-29] MEDS: ATORVASTATIN 10 MG TAB PO SCH (21:14)
[2019-03-30] MEDS: PANTOPRAZOLE INJ 80 MG in NA CHLORIDE 0.9% 250 ML IV SCH ×2 (02:04→10:30)
[2019-03-30 06:09] LABS: Albumin 2.6 g/dL (3.4-5.0); Phosphorus 4.1 mg/dL (2.5-4.9); Potassium 3.9 mmol/L (3.5-5.1)
--- NOTE | 2019-03-30 08:56 | RAD REPORT ---
EXAM DESCRIPTION: US - Lower Extremity Artery [facility] Ltd - 03/30/2019 8:39 am CLINICAL HISTORY: Right leg pain and swelling COMPARISON: None FINDINGS: A 4.8 x 2.5 centimeter fluid collection is present within the right groin. It does not con tain blood flow. It lies near the right common femoral artery. The artery is patent. IMPRESSION: 4.8 x 2.5 centimeter fluid collection which does not contain blood flow may represent a hematoma
[2019-03-30] MEDS: JUVEN PACKET PO SCH (09:00)
[2019-03-30] MEDS: INSULIN -REGULAR HUMAN 50 UNIT/0.5 ML ML SQ SCH ×2 (09:02→11:30)
[2019-03-30] MEDS: NIFEDIPINE XL 60 MG TABLET PO SCH (09:03)
[2019-03-30] MEDS: LOSARTAN POTASSIUM 50 MG TABLET PO SCH (09:03)
[2019-03-30] MEDS: LABETALOL HCL 100 MG TAB PO SCH (09:04)
[2019-03-30] MEDS: GABAPENTIN 100 MG CAP PO SCH ×2 (09:04→14:59)
[2019-03-30] MEDS: MINOXIDIL 2.5 MG TAB PO SCH (09:04)
[2019-03-30] MEDS: Brimonidine Tartrate/Timolol (Combigan) 0.2%-0.5% Eye Drops OP SCH (09:05)
[2019-03-30 09:06] VITALS: BP 144/67
[2019-03-30 09:54] VITALS: TEMP 97.4
[2019-03-30 09:54] LABS: Hematocrit 25.9 % (39.6-49.0)
[2019-03-30 10:30] VITALS: O2SAT 98
--- NOTE | 2019-03-30 10:45 | P.DS ---
Admission Date: 03/28/19 Discharge Date: 03/30/19 Primary Care Provider: Dr. Celestin; Nephrology-Dr. Burch; CV Surgery-Dr. Valentino Disposition: ROUTINE DISCHARGE Discharge Condition: GOOD Reason for Admission: Generalized weakness Consultations: Nephrology-Dr. Burch/Dr. Velázquez GI-Dr. Mai Procedures: Venous doppler: FINDINGS: Right lower extremity venous system was interrogated with Doppler technique. Normal flow, compressibility and augmentation was noted. There is no DVT present. 7 x 3 cm cystic structure is present in the right groin. IMPRESSION: No evidence of right lower extremity deep venous thrombosis. Arterial doppler: ADDENDUM On the March 28, 2019 examination the fluid collection measured 7 x 4.5 centimeters FINDINGS: A 4.8 x 2.5 centimeter fluid collection is present within the right groin. It does not contain blood flow. It lies near the right common femoral artery. The artery is patent. IMPRESSION: 4.8 x 2.5 centimeter fluid collection which does not contain blood flow GI intervention: Surgeon: Shan Mai MD Procedure To Be Performed: Esophagogastroduodenoscopy. Indication For Procedure: Melena, acute drop in hemoglobin, suspected upper GI bleed. Technique: After obtaining informed consent from the patient and explaining risks and complications, which include, but are not limited to bleeding, infection, perforation, and anesthesia complication, patient was placed in a left lateral position and sedation was given. From then on, the scope was advanced to the mouth and carefully guided up to the second portion of the duodenum. There was no active bleeding seen. The stigmata of recent bleeding were identified. After the completion of the procedure, the equipment and scope were withdrawn and procedure terminated in a safe manner. Findings: 1. Esophagus: No gross lesion seen in the upper and mid esophagus. In the distal esophagus, there was evidence of LA grade C esophagitis with ulceration. Small biopsy was taken from the stomach. [id number] patchy erythema seen in the body and antrum. Small biopsy was taken; however, 1 biopsy site did not stop bleeding even after waiting for 2-3 minutes. Therefore, this was injected with epi and a clip was placed with good hemostasis. Likely underlying platelet dysfunction due to kidney disease and the fact that patient is on Plavix as a contributing factor. 2. Duodenum: Several superficial ulcers were seen in the bulb. Biopsies were taken also. Similar to the gastric biopsy, there was some oozing, which was stopped with epi injection and a single clip. The second part of the duodenum appeared normal. Complications: None. Tolerance To Anesthesia: Excellent. Postoperative Diagnosis: Esophageal and duodenal ulcers. Easy tendency to bleed with biopsy, which was treated. Biopsy Pathology: Duodenal ulcer, biopsy: Ulcer noted, no malignancy identified, no H. pylori organism identified. Stomach, biopsy: Mild chronic inactive gastritis, no H pylori organism identified. No evidence of malignancy. Esophagus ulcer, biopsy: Mild acute esophagitis, no malignancy identified. Special GMS stain negative for fungal organism. 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 Patient presented with increased fatigue and melena. Patient found to be acutely anemic. Upper GI bleed was suspected. Patient was admitted for further evaluation. Hospital Course: Patient presented with melena and severe anemia. Patient admitted for further evaluation of suspected upper GI bleed. Patient had been using nonsteroidal anti-inflammatories. He also was taking Plavix for peripheral vascular disease. Patient required blood transfusion. Patient received 4 units of blood. Patient was seen by GI. GI intervention was required. EGD performed showed esophageal and duodenal ulcers. This was treated with epinephrine and clipping with good hemostasis. Pathology showed chronic gastritis and acute esophagitis. GI recommends to hold aspirin and Plavix for 5 days. Patient will continue with Protonix 40 mg daily. Initial hemoglobin 4.1. Now stable at 8.8. At discharge will continue with Protonix 40 mg daily. At discharge will recommend to hold aspirin and Plavix for 5 days. Then aspirin and Plavix can be restarted after that time. Recommend follow up with GI in 1-2 weeks to follow up this hospitalization. Recommend recheck CBC in 1 week to monitor stability. Patient may continue with multi vitamin with iron daily. Will recommend no further use of nonsteroidal anti-inflammatories like naproxen. Patient had been using naproxen in the past for pain. Patient seen by CV surgery at [facility] by Dr. Valentino. 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 This has been followed by CV surgery. Venous and arterial doppler performed during his stay. Pseudo aneurysm measures 4.8 x 2.5 cm. This appears stable. Information will be sent to Dr. Valentino( ). Patient has a repeat appointment on April 19 for repeat ultrasound to monitor closely. He has follow up with Dr. Valentino on April 26 to further address. Patient with end-stage renal disease on hemodialysis. Patient seen by nephrology during his stay. Patient will continue with dialysis every Tuesday, Tuesday and Tuesday. Overall stable at this time. Recommend no further use of nonsteroidal anti-inflammatories. Future medications will need to be renally dosed. Patient with hypertension. This has remained stable. Patient will continue with medications-labetalol 600 mg 1 pill twice daily, losartan 100 mg daily, minoxidil 2.5 mg daily, and nifedipine ER 60 mg daily. Recommend to maintain blood pressures less 150/80. Further adjustment can be done by his PCP. Patient with chronic pain and neuropathy. At discharge he will continue this medication-gabapentin 100 mg 1 pill 3 times a day. Recommend no further use of nonsteroidal anti-inflammatories like naproxen. Patient with hyperlipidemia. At discharge he will continue with his medication- lovastatin 20 mg daily. Vital Signs/Physical Exam: Temp Pulse Resp BP Pulse Ox 97.4 F 54 18 144/67 H 100 03/30/19 08:00 03/30/19 09:04 03/30/19 08:00 03/30/19 09:04 03/30/19 08:00 General: Alert, In no apparent distress, Oriented x3, Cooperative HEENT: Atraumatic Neck: Supple Respiratory: Clear to auscultation bilaterally, Normal air movement Cardiovascular: Normal pulses, Regular rate/rhythm Gastrointestinal: Normal bowel sounds, Soft and benign, Non-distended Musculoskeletal: No tenderness, No warmth Integumentary: Other (Mass to the right groin area suspect sooner aneurysm as previous history indicates) Neurological: Normal speech, Normal strength at 5/5 x4 extr, Normal tone, Normal affect Laboratory Data at Discharge: WBC 11.7 K/uL (4.3-10.9) H 03/27/19 22:46 Hgb 8.8 g/dL (13.6-17.9) L 03/30/19 09:15 Hct 25.9 % (39.6-49.0) L 03/30/19 09:15 Plt Count 180 K/uL (152-406) 03/27/19 22:46 PT 16.2 SECONDS (9.5-12.5) H 03/28/19 00:05 INR 1.39 03/28/19 00:05 Sodium 137 mmol/L (136-145) 03/30/19 05:20 Potassium 3.9 mmol/L (3.5-5.1) 03/30/19 05:20 BUN 89 mg/dL (7-18) H 03/30/19 05:20 Creatinine 6.45 mg/dL (0.55-1.3) H* D 03/30/19 05:20 Glucose 109 mg/dL (74-106) H 03/30/19 05:20 Phosphorus 4.1 mg/dL (2.5-4.9) 03/30/19 05:20 Total Bilirubin 1.8 mg/dL (0.2-1.0) H 03/27/19 22:46 AST 35 U/L (15-37) 03/27/19 22:46 ALT 31 U/L (12-78) 03/27/19 22:46 Alkaline Phosphatase 412 U/L (45-117) H 03/27/19 22:46 Home Medications: Amoxicillin 500 mg PO Q8HR 03/28/19 Aspirin [Adult Aspirin Regimen] 81 mg PO DAILY 03/28/19 Brimonidine Tartrate/Timolol [Combigan 0.2%-0.5% Eye Drops] 1 drop OP BID Clopidogrel Bisulfate [Plavix] 75 mg PO DAILY 03/28/19 Gabapentin 100 mg PO TID 03/28/19 Labetalol HCl [Trandate] 600 mg PO BID 03/28/19 Latanoprost/Pf [Latanoprost 0.005% Eye Drop] 1 drop OP BEDTIME 03/28/19 Losartan Potassium 100 mg PO DAILY 03/28/19 Lovastatin 20 mg PO BEDTIME 03/28/19 Minoxidil 2.5 mg PO DAILY 03/28/19 Nifedipine [Nifedipine ER] 60 mg PO DAILY 03/28/19 Multivit with Iron,Minerals [Spectravite Senior] 1 each PO DAILY #90 tablet Pantoprazole [Protonix Tab] 40 mg PO DAILY #30 tab 03/30/19 New Medications: Multivit with Iron,Minerals [Spectravite Senior] 1 each PO DAILY #90 tablet Pantoprazole [Protonix Tab] 40 mg PO DAILY #30 tab Patient Discharge Instructions: 1. Recommend follow up with his PCP in 1 week to follow up this hospitalization. 2. Patient presented with melena and severe anemia. Patient admitted for further evaluation of suspected upper GI bleed. Patient had been using nonsteroidal anti-inflammatories. He also was taking Plavix for peripheral vascular disease. Patient required blood transfusion. Patient received 4 units of blood. Patient was seen by GI. GI intervention was required. EGD performed showed esophageal and duodenal ulcers. This was treated with epinephrine and clipping with good hemostasis. Pathology showed chronic gastritis and acute esophagitis. GI recommends to hold aspirin and Plavix for 5 days. Patient will continue with Protonix 40 mg daily. Initial hemoglobin 4.1. Now stable at 8.8. At discharge will continue with Protonix 40 mg daily. At discharge will recommend to hold aspirin and Plavix for 5 days. Then aspirin and Plavix can be restarted after that time. Recommend follow up with GI in 1-2 weeks to follow up this hospitalization. Recommend recheck CBC in 1 week to monitor stability. Patient may continue with multi vitamin with iron daily. Will recommend no further use of nonsteroidal anti-inflammatories like naproxen. Patient had been using naproxen in the past for pain. 3. Patient seen by CV surgery at [facility] by Dr. Valentino. 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 This has been followed by CV surgery. Venous and arterial doppler performed during his stay. Pseudo aneurysm measures 4.8 x 2.5 cm. This appears stable. Information will be sent to Dr. Valentino( ). Patient has a repeat appointment on April 19 for repeat ultrasound to monitor closely. He has follow up with Dr. Valentino on April 26 to further address. 4. Patient with end-stage renal disease on hemodialysis. Patient seen by nephrology during his stay. Patient will continue with dialysis every Tuesday, Tuesday and Tuesday. Overall stable at this time. Recommend no further use of nonsteroidal anti-inflammatories. Future medications will need to be renally dosed. 5. Patient with hypertension. This has remained stable. Patient will continue with medications-labetalol 600 mg 1 pill twice daily, losartan 100 mg daily, minoxidil 2.5 mg daily, and nifedipine ER 60 mg daily. Recommend to maintain blood pressures less 150/80. Further adjustment can be done by his PCP. 6. Patient with chronic pain and neuropathy. At discharge he will continue this medication-gabapentin 100 mg 1 pill 3 times a day. Recommend no further use of nonsteroidal anti-inflammatories like naproxen. 7. Patient with hyperlipidemia. At discharge he will continue with his medication-lovastatin 20 mg daily. Diet: Renal Activity: Fall precautions Time spent managing pt's care (in minutes): 55
--- NOTE | 2019-03-30 10:51 | P.PN ---
Subjective Date of Service: 03/30/19 Primary Care Provider: Dr. Celestin; Nephrology-Dr. Burch; CV Surgery-Dr. Valentino Chief Complaint: Generalized weakness Subjective: No new changes Pt with esrd , admitted for acute anemia Due to Gi bleeding today no new complaints LE doppler , hematoma smaller in Size H/H stable can be discharged todat after HD F/U with vascular as an OP Physical Examination - Vital Signs Temperature: 97.4 F Blood Pressure: 144/67 Pulse: 54 Respirations: 18 Pulse Ox (%): 100 - Physical Exam General: In no apparent distress, Oriented x3 HEENT: Atraumatic Neck: Supple, Without JVD or thyroid abnormality Respiratory: Clear to auscultation bilaterally, Normal air movement Cardiovascular: No edema, Normal pulses, Regular rate/rhythm, No gallops, No rubs, No murmurs Gastrointestinal: Normal bowel sounds Musculoskeletal: Other (Rt upper thigh nodule, non tender ) - Studies Medications List Reviewed: Yes Assessment And Plan - Plan End-stage renal disease. HD today can be discharged after HD tosday ] Anemia Due to CKD and acute Gi bleeding H/h stable cont [id number] HTN controlled Rt upper thigh hematoma stable F/u with his vascular surgeon as an op
[2019-03-30] MEDS: EPOETIN ALFA 10,000 UNIT/ML VIAL IV SCH (12:37)
== END 2019-03-30 16:07 | disposition home or self-care (01) | DRG 380 ==
LOC: ER 21:42 → ERHOLD 03-28 01:19 → 2ND 03-28 02:20
PROVIDERS: ADMIT Internal Medicine; ATTEND Internal Medicine
PROC: 0DB68ZX Excision of Stomach, Via Natural or Artificial Opening Endoscopic, Diagnostic (ICD-10-PCS; 2019-03-28)
PROC: 0W3P8ZZ Control Bleeding in Gastrointestinal Tract, Via Natural or Artificial Opening Endoscopic (ICD-10-PCS; 2019-03-28)
PROC: 30233N1 Transfusion of Nonautologous Red Blood Cells into Peripheral Vein, Percutaneous Approach (ICD-10-PCS; 2019-03-28)
PROC: 0DB98ZX Excision of Duodenum, Via Natural or Artificial Opening Endoscopic, Diagnostic (ICD-10-PCS; principal; 2019-03-28 13:30)
DX: K22.11 Ulcer of esophagus with bleeding (principal); N18.6 End stage renal disease; I12.0 Hypertensive chronic kidney disease with stage 5 chronic kidney disease or end stage renal disease; D50.0 Iron deficiency anemia secondary to blood loss (chronic); K26.4 Chronic or unspecified duodenal ulcer with hemorrhage; E11.22 Type 2 diabetes mellitus with diabetic chronic kidney disease; I73.9 Peripheral vascular disease, unspecified; E11.40 Type 2 diabetes mellitus with diabetic neuropathy, unspecified; K29.50 Unspecified chronic gastritis without bleeding; K20.9 Esophagitis, unspecified; I72.8 Aneurysm of other specified arteries; K21.9 Gastro-esophageal reflux disease without esophagitis; E78.5 Hyperlipidemia, unspecified
CPT/HCPCS: 36415; 36430; 71045; 80053; 80069; 82607; 82728; 82962; 83540; 84466; 84484; 85014; 85018; 85025; 85610; 86850; 86900; 86901; 87070; 87205; 88305; 88312; 90935; 93005; 93926; 93971; 96365; 96366; 96375; 97110; 97116; 97161; 97530; 99285; C9113; J0171; J0360; J2250; J2270; J2704; P9016